=== PATIENT | female | born 1960 | race Caucasian/White ===

== ENCOUNTER → 2018-11-24 16:37 | Outpatient (CLI) | payer OTHER, SELFPAY ==
--- NOTE | 2018-11-24 17:00 | MRI_ITS ---
STUDY: MRI LUMBAR SPINE WITHOUT CONTRAST REASON FOR EXAM: Female, 58 years old. Left-sided sciatica. Low back pain. Difficulty bearing weight. TECHNIQUE: Standardized fat and water weighted pulse sequences were obtained in the sagittal and axial planes. COMPARISON: CT scan dated November 28, 2014 of the abdomen/pelvis. FINDINGS: Levoscoliosis. Lumbar straightening. Conus medullaris terminates normally at the L1-2 level. Multiple scattered hemangiomas (atypical appearance at L3). No acute fracture line. No dislocation. No cortical destruction. No spondylolisthesis. Transitional lumbosacral anatomy with rudimentary disc at S1 to (for the sake of labeling). T12-L1: Normal endplates. Normal disc height, hydration and morphology. Normal bilateral facet joints. Normal central canal and bilateral lateral recesses. Normal bilateral intervertebral neural foramina. L1-2: Normal endplates. Disc desiccation. Normal bilateral facet joints. Normal central canal and bilateral lateral recesses. Normal bilateral intervertebral neural foramina. L2-3: Mild endplate spondylosis. Disc desiccation. Normal bilateral facet joints. Normal central canal and bilateral lateral recesses. Normal bilateral intervertebral neural foramina. L3-4: Mild endplate spondylosis. Disc bulge without central canal narrowing. Normal bilateral facet joints. Normal central canal and bilateral lateral recesses. Normal bilateral intervertebral neural foramina. L4-5: Normal endplates. Disc bulge without central canal narrowing. Facet joint arthrosis. Normal central canal and bilateral lateral recesses. Normal bilateral intervertebral neural foramina. L5-S1: Minimal endplate spondylosis. Left paracentral disc protrusion measuring 9 mm x 31 mm (axial image 4 series 6). Facet joint arthrosis. Normal central canal. Left lateral recess narrowing with impingement. Left neural foraminal narrowing without impingement. Sacrum intact. Paraspinal muscle atrophy. Normal aorta. MRI/Spine Lumbar (Routine) IMPRESSION: L5-S1 left paracentral disc protrusion with impingement at the left lateral recess involving the left descending S1 nerve root L5-S1 mild left neural foraminal narrowing without impingement Additional multilevel intervertebral disc disease without central canal narrowing Mild osseous degenerative changes Lumbar straightening with mild levoscoliosis Electronically Signed: Nirmal Salinas DO at 9:23 EDT Tel , Service support ,
== END ==
DX: M51.36 Other intervertebral disc degeneration, lumbar region (principal); Q76.49 Other congenital malformations of spine, not associated with scoliosis; M54.42 Lumbago with sciatica, left side
CPT/HCPCS: 72148

== ENCOUNTER 2018-12-20 13:00 | Outpatient (RCR) | payer OTHER, SELFPAY ==
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
--- NOTE | 2019-02-22 18:29 | HP.PTDCNRP_ITS ---
HP - Discharge Summary (1) - Patient Information BRIELLE HANKINS was seen in my office for initial evaluation on 12/06/18. The following Plan of Care was established for this patient: Initial Frequency: 3x /Week Initial Duration: 4-6 Weeks - Anticipated Interventions Patient/Client Instruction: Educate patient on: Condition, Plan of Care For the Purpose of:: To increase ROM, To increase tolerance to activity/cond ition/position, To improve ability of physical actions for home/community/work/leisure, To improve gait and locomotor functions Therapeutic Exercise to Include: Strength training, Passive ROM, Active ROM, Dynamic Lumbar Stabilization, Christine Exercises For the Purpose of:: To decrease pain, To increase ROM, To improve muscle performance and motor function, To increase tolerance to activity/condition/position, To improve ability of physical actions for home/community/work/leisure Manual Therapy Techniques to Include: Mobilization, Passive ROM For the Purpose of:: To decrease pain, To increase ROM TENS: Yes Thermo therapy (hot pack): Yes For the Purpose of:: To decrease pain This patient was last seen in our office 12/20/18. Pertinent comments regarding their Physical therapy will appear below: Pt seen 5 visits of POC but neglected to schedule any further visits. At this point, it has been over two months adn I will discontinue due to nonattendance. At this point I will be discontinuing this patient from physical therapy. I would be happy to see this patient again in the future if found appropriate by the physician. Thank you! Nirmal Decker, DPT, OCS, CSCS
== END 2018-12-20 19:00 | disposition home or self-care (01) ==
LOC: PT 13:00
DX: M51.27 Other intervertebral disc displacement, lumbosacral region (principal); M54.18 Radiculopathy, sacral and sacrococcygeal region
CPT/HCPCS: 97014; 97110; 97162; G0283

== ENCOUNTER → 2019-12-13 09:47 | Outpatient (CLI) | payer OTHER, SELFPAY ==
--- NOTE | 2019-12-13 09:51 | RAD_ITS ---
STUDY: X-RAY - ABDOMEN/PELVIS REASON FOR EXAM: Female, 59 years old. Calculus of kidney -- pain TECHNIQUE: Single AP view of the abdomen / pelvis. COMPARISON: Comparison is made with prior study dated November 28, 2014. FINDINGS: Normal visualized lung bases. There is a moderate amount of colonic fecal material. The visualized liver, spleen and kidneys are grossly normal in size and morphology. Calcified fibroid uterus. Normal visualized osseous structures. RAD/Abdomen Single View IMPRESSION: Moderate amount of fecal material is seen in the colon. No abnormal calcification is seen overlying the kidneys or course of the ureters. Electronically Signed: Desmond Altamirano, at 14:44 EDT , Service support ,
== END ==
PROVIDERS: PCP Nurse Practitioner; Referring Provider Urology; Visit Provider Urology
DX: N20.0 Calculus of kidney (principal)
CPT/HCPCS: 74018; 87086; 87088

== ENCOUNTER → 2020-02-27 15:49 | Outpatient (CLI) | payer OTHER, SELFPAY ==
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
== END ==
PROVIDERS: PCP Nurse Practitioner; Referring Provider Nurse Practitioner; Visit Provider Nurse Practitioner
DX: S99.921A Unspecified injury of right foot, initial encounter (principal); M20.11 Hallux valgus (acquired), right foot
CPT/HCPCS: 73630

== ENCOUNTER 2022-10-31 05:59 | Day surgery (SDC) | payer MEDICAID, SELFPAY ==
--- NOTE | 2022-10-30 10:23 | EKG12_ITS ---
Test Reason : PRE-OP Blood Pressure : / mmHG Vent. Rate : 082 BPM Atrial Rate : 082 BPM P-R Int : 160 ms QRS Dur : 082 ms QT Int : 408 ms P-R-T Axes : 080 078 068 degrees QTc Int : 476 ms Normal sinus rhythm Nonspecific ST abnormality Abnormal ECG Confirmed by EKATERINA TAPIA, DARWIN ([id number]), metropolitan editor JONO MAHAN ([id number]) on 11/03/2022 9:27:28 AM Referred By: Miguel Munguia Confirmed By:SARAH TOBAR MD
--- NOTE | 2022-10-31 | IMM_PTH ---
PATIENT: BRIELLE HANKINS LOC: [facility] [place] U#:[id number] AGE/SX: 62/F ROOM: RE10/31/[address]: Dr. Miguel Munguia DPM : 1960 BED: DIS: 10/31/2022 SPEC #: [id number] RECD: 11/03/22 12:28 STATUS: NISHANT REQ #: [id number] MALU: 10/31/22 00:[address]: Miguel Munguia DEPT: IMMUNOHISTOCHEMISTRY RECD BY: Yolie Toro ENTERED: 11/03/22 12:30 SP TYPE: IMMUNO OTHR DR: Dr. Germania Alvarez MD Tissues: Left foot Procedures: CK5-6 (add) KI-67 (add) P53 (add) Vimentin (add) Pankeratin (initial) MELAN-A (add) P40 (add) S-100 (add) PHYSICIAN & INSTITUTION [place] [id number] SPECIMEN INFORMATION: Tissue Source: Skin lesion of left foot plantar surface Clinical Info: Left heel sore Specimen Number: [id number] #3 CPT code: 13351, 07998 x7 METHODOLOGY: Deparaffinized sections of prefer/formalin-fixed tissue or PAP/DQ stained slides are incubated with monoclonal/polyclonal antibodies/oligonucleotide probes. Localization is made via biotin free immunoperoxidase method. Appropriate controls are performed and reacted as expected. Results on target cell population are indicated in the following table: RESULTS: ANTIBODY / CLONE RESULT Block 3 AE1-3 (AE1/AE3/PCK26) negative Vimentin (V9) positive Melan A (A103) positive S-100 (4C4.9) positive CK5-6 (D5 & 1684) negative P40 (BC28) negative P53 (DO-7) positive, 50% Ki-67 (30-9) positive, 5% These tests were developed and their performance characteristics determined by [facility]. They may not have been cleared or approved by the U.S. Food and Drug Administration. The FDA has determined that such clearance or approval is not necessary. The above immunohistochemical/dualISH markers are ordered and reviewed by the Pathologist (Dr. Brunson). INTERPRETATION: Skin lesion of left foot plantar surface, excisional biopsy: Invasive malignant melanoma. AM:tashia 11/07/2022 Case has been reviewed in consultation with Dr. Rodriguez who concurs with the above diagnosis. IDC:SJ
[2022-10-31] MEDS: Lactated Ringers 1,000 ML 15 ML IV (06:15)
[2022-10-31 06:34] VITALS: BP 149/90; PULSE 93; RESP 16; TEMP 36.6; O2SAT 99; BMI 22.6
[2022-10-31] MEDS: Clindamycin 900 MG/50 ML BAG 75 MG IV (07:27)
--- NOTE | 2022-10-31 07:30 | TISS_PTH ---
PATIENT: BRIELLE HANKINS LOC: [facility] – [place] U#:[id number] AGE/SX: 62/F ROOM: RE10/31/[address]: Dr. Miguel Munguia DPM : 1960 BED: DIS: 10/31/2022 SPEC #: [id number] RECD: 10/31/22 10:56 STATUS: NISHANT USHA #: [id number] MALU: 10/31/22 07:[address]: Miguel Munguia DEPT: SURGICAL PATHOLOGY RECD BY: Kelly De Guzman ENTERED: 10/31/22 11:46 SP TYPE: Tissue Bx [facility] DR: Dr. Germania Alvarez MD Tissues: Foot, NOS Procedures: Surgery Specimen Level IV HEADER OPERATION: Excision and biopsy neoplasm on heel PRE-OP DIAGNOSIS: Left heel sore TISSUE SUBMITTED: Biopsy left foot plantar, ink salazar medial and lateral MICROSCOPIC DIAGNOSIS Skin lesion of left foot plantar surface, excisional biopsy: Invasive malignant melanoma. See synoptic report and note. SJ:rg 11/07/2022 COMMENT SYNOPTIC REPORT Histologic type: Nodular type Level of invasion: Jake level III Tumor thickness: 3.7 mm Mitotic rate: Present, more than 4/mm2 Ulceration: Present Regression: Not identified Tumor infiltrating lymphocytes: Present, non-brisk Lymphovascular invasion: Not identified Perineural invasion: Not identified Microsatellitosis: Not identified Peripheral margin: Negative Deep margin (base of specimen): Negative Primary tumor/pathologic stage: PT3B (2.01 to 4.0 mm with ulceration) Note: The lesion is polypoid. Results of immunostains including S100 and MART1 support the diagnosis. The specimen is sent to [facility] for expert opinion, reviewed by Dr. Parminder Jamison and the above diagnosis is rendered. The complete report is viewable in the patient's EMR. Immunohistochemistry ([id number]) supports the above diagnosis. Case has been reviewed in consultation with Dr. Brunson who concurs with the above diagnosis. IDC:AM MICROSCOPIC DESCRIPTION Slides are reviewed. GROSS DESCRIPTION Received in fixative is one container labeled with the patient's name and designated biopsy left foot plantar, ink salazar medial and lateral. The specimen consists of a piece of miller-white skin ellipse measuring 4.5 x 1.5 cm and up to 0.4 cm in thickness. The specimen is oriented by ink as medial and lateral. The medial tip is inked green and lateral tip is inked yellow. Presumed proximal margin towards heel is inked black and presumed distal margin towards toe is inked blue. An ulcerated lesion on the surface measuring 1.0 x 1.0 cm. The specimen is serially sectioned and submitted entirely in four cassettes. Cassette 1 contains the medial and lateral tips of skin ellipse and cassette 3 contains the lesion. / SJ:rg 10/31/2022 TC:0 CPT: 82970
[2022-10-31] MEDS: Lidocaine 1% /Epi 1:100 (20ml) 20 ML Vial (07:44)
--- NOTE | 2022-10-31 08:05 | DCINST_ITS ---
Discharge Instructions Diet Discharge Diet: No restrictions Activity Discharge Activity: Use Walker May resume sexual activity in: No Restrictions Weight Bearing Status: No weight bearing Keep extremity elevated above heart level: Operative Extremity Dressing / Incision Call your doctor if your incision/area has: Increased Pain/ Swelling Call your doctor if you observe: Fever of 101 or Higher, Coldness, Increased Pain, Calf discomfort and Uncontrolled pain Change Dressing in: do not change dressing Remove Dressing in: do not remove dressing Cleanse incision/area with: Do not get Incision Wet Follow Up Care Please Follow Up With: Miguel Munguia DPM When: see home going sheet from Dr. Munguia Test Results: Test results from this visit will be discussed in further detail at your follow- up appointment, if applicable. Discharge Plan Admission Attending Provider: Miguel Munguia Primary Care Provider: Germania Alvarez Discharge Orders/Prescriptions Prescriptions: No Action cholecalciferol (vitamin D3) 25 mcg (1,000 unit) capsule 50 mcg PO DAILY vitamin b12 500 mg 500 mcg PO DAILY cimetidine 200 mg tablet 200 mg PO DAILY uricalm cranberry 2 tab PO DAILY Rx Instructions: 2 tabs amberen 2 cap PO DAILY Rx Instructions: 2 tabs in am cephalexin 500 mg capsule 500 mg PO Q12H 10 Days Qty: 20 0RF atenolol 50 mg tablet 50 mg PO BID Referrals / Follow Up: Germania Alvarez MD [Primary Care Provider] - Disposition Disposition (needs filled in before D/C Order can be placed): Home, Self Care
--- NOTE | 2022-10-31 08:09 | PCM.OPRPT ---
Report of Operation Date of Procedure: 10/31/22 Pre-Operative Diagnosis: suspicious plantar pigmented skin lesion left heel Post-Operative Diagnosis: same Surgery/Procedure Performed:: excision/path Surgeon: Miguel Munguia Type of Anesthesia: MAC/Supplemental/Local Specimen's removed: 3.5cm long tagged/inked skin specimen Drains: none Estimated Blood Loss (mL): 5ml Description of Procedure: 3:1 elipse planned transversely across heel, foot prepped and draped in normal sterile manner. ankle tounriquet at 250mmHg. 2 semi elliptical incisions made around the lesion. The lesion was granular and bleeding in the center very much like a foreign body granuloma but had some pigmentation around the margins and a hx of growing larger over a long time. a full thickness wedge of skin to deep subQ tissue/plantar fascia was completed and the specimen was sent inked m for medial and l for lateral. the remaining tissue was normal, No pigmentation. no foreign body. no sinus tract, no drainage, no purulence. normal surrounding fat and no remaining pigmentation in the skin. the 2 edges were brought together in a simple interrupted suture of 2.0 nylon. DSD applied. tounrniquet deflated. normal perfusion with bleeding. Pt tolerated anesthesia and procedure well. Complications none Admit VTE Documentation VTE Present on Admission: Yes VTE Mechan Device Prophylaxis: SCD's VTE Pharm Prophylaxis ordered?: Yes
[2022-10-31 08:15] VITALS: BP 116/75; BP 149/90; PULSE 74; RESP 18; O2SAT 95
[2022-10-31 08:20] VITALS: BP 116/75; BP 118/77; BP 125/77; BP 149/90; PULSE 72; PULSE 75; PULSE 76; RESP 12; RESP 18; TEMP 36.3; O2SAT 100; O2SAT 98
[2022-10-31 08:31] VITALS: BP 125/77; BP 149/90; PULSE 68; RESP 18; O2SAT 100
[2022-10-31 08:32] VITALS: BP 135/79; BP 149/90; PULSE 66; RESP 18; TEMP 36.6; O2SAT 100
--- NOTE | 2022-10-31 08:50 | SUR.PHASEI ---
SOME MILD REDNESS AND ITCHING NOTED UP FROM IV SITE AFTER ZOFRAN. WILL CONTINUE TO MONITOR.
[2022-10-31 09:10] VITALS: BP 149/90
--- NOTE | 2022-10-31 09:50 | SUR.PHASEII ---
no redness noted to IV site
== END 2022-10-31 09:51 | disposition home or self-care (01) ==
LOC: SDC 06:00 → AC 06:00
PROVIDERS: PCP Internal Medicine; Referring Provider Podiatrist Foot & Ankle Surgery; Visit Provider Podiatrist Foot & Ankle Surgery
PROC: (CPT 11624; principal; 2022-10-31 07:15)
DX: C43.72 Malignant melanoma of left lower limb, including hip (principal); I34.1 Nonrheumatic mitral (valve) prolapse; I10 Essential (primary) hypertension; Z79.899 Other long term (current) drug therapy
CPT/HCPCS: 11624; 00400; 88305; 88341; 88342; 93005; J7120; J2405

== ENCOUNTER → 2022-12-01 | Outpatient (CLI) | payer MEDICAID, SELFPAY ==
--- NOTE | 2022-12-01 12:30 | MRI_ITS ---
EXAM: MR HEAD WITHOUT AND WITH INTRAVENOUS CONTRAST CLINICAL INDICATION: STAGING MELANOMA TECHNIQUE: Multiplanar and multisequence MR images of the brain were obtained without and with intravenous contrast. This report was created using ROSTR report generation technology. CONTRAST: IV 14ml Clariscan COMPARISON: None. FINDINGS: BRAIN AND EXTRA-AXIAL SPACES: Unremarkable. No intra- or extra-axial hemorrhage. No evidence of acute infarct. No intracranial mass or mass effect. There is preservation of the diallo/white matter interface. Posterior fossa structures are unremarkable. Ventricles are appropriate for age. No hydrocephalus. Basal cisterns are patent. SELLA: Unremarkable. Normal sella turcica, pituitary gland, infundibular stalk, optic chiasm and hypothalamus. AUDITORY SYSTEM: Unremarkable. The internal auditory canals are patent. BONES/JOINTS: Unremarkable. No discrete lytic or blastic abnormalities. SINUSES: Unremarkable as visualized. Clear. MASTOID AIR CELLS: Patchy opacification of the left mastoid air cells. ORBITS: Unremarkable as visualized. Both globes, extraocular muscles, optic nerves and retrobulbar fat appear unremarkable. VASCULATURE: Unremarkable as visualized. Normal flow voids in the major intracranial circulation. SOFT TISSUES: Unremarkable. No unusual enhancement. MRI/Brain W/WO Contrast IMPRESSION: No evidence of metastatic disease to the brain. Electronically Signed: Aaron Cervantes MD at 0:29 EDT ,
== END | disposition home or self-care (01) ==
LOC: MRI 12:20
PROVIDERS: PCP Internal Medicine; Referring Provider Internal Medicine Hematology & Oncology; Visit Provider Internal Medicine Hematology & Oncology
DX: C43.72 Malignant melanoma of left lower limb, including hip (principal)
CPT/HCPCS: 70553; A9575

== ENCOUNTER → 2024-01-21 | Outpatient (CLI) | payer MEDICARE, OTHER, SELFPAY ==
[2024-01-21 13:15] LABS: Absolute Neutrophil Count 2.4 X10^3/uL (2.0-7.7); Basophil# 0.02 X10^3/uL; Basophil% 0.6 % (0-1); Eosinophil# 0.03 X10^3/uL; Eosinophils% 0.9 % (0-5); Hematocrit 41.3 % (37-47); Hemoglobin 12.9 g/dL (12.0-15.0); Lymphocyte % 23.1 % (19-41); Mean Corp Hgb Conc 31.2 g/dL (32-36); Mean Corpuscular Volume 92.8 fL (81-99); Mean Platelet Vol. 10.8 fl (6.2-12.0); Monocyte# 0.18 X10^3/uL; Monocyte% 5.2 % (0-10); NRBC Flagged by Analyzer 0 % (0-5); Neutrophil # 2.42 X10^3/uL (2.7-7.7); Neutrophil % 69.9 % (47-70); Platelet Count 213 K/mm3 (150-450); RBC Distribution Width CV 12.9 % (11.6-14.6); RBC Distribution Width SD 44.2 fl (35.1-43.9); Red Blood Count 4.45 M/mm3 (4.2-5.4); White Blood Count 3.5 K/mm3 (4.4-11.0)
[2024-01-21 14:16] LABS: AST(SGOT) 18 U/L (15-37); Alanine Aminotransfer ALT/SGPT 18 U/L (13-56); Albumin, Serum 3.6 g/dL (3.2-5.0); Alkaline Phosphatase 86 U/L (45-117); Anion Gap 7 (5-15); BUN 11 mg/dL (7-18); BUN/Creat Ratio 13.8 RATIO (10-20); Calcium,Total 9.5 mg/dL (8.5-10.1); Chloride 108 mmol/L (98-107); Cholesterol 251 mg/dL (200); EST Glomerular Filtration Rate 77 mL/min (>60); Est Glom Filt Rate - Afr Amer 93 mL/min (>60); Globulin 3.7 g/dL (2.2-4.2); Glucose 106 mg/dL (74-106); High Density Lipoprotein 72 mg/dL; Potassium 3.7 mmol/L (3.5-5.1); Protein, Total 7.3 g/dL (6.4-8.2); Sodium Level 139 mmol/L (136-145); Thyroid Stim Hormone (TSH) 1.67 uIU/mL (0.358-3.74); Triglycerides 92 mg/dL; Very Low Density Lipoprotein 18 mg/dL (5-40)
== END | disposition home or self-care (01) ==
LOC: LAB 12:34
PROVIDERS: PCP Internal Medicine; Referring Provider Internal Medicine; Visit Provider Internal Medicine
DX: C43.72 Malignant melanoma of left lower limb, including hip (principal); R00.2 Palpitations; E78.5 Hyperlipidemia, unspecified; E55.9 Vitamin D deficiency, unspecified; Z13.220 Encounter for screening for lipoid disorders
CPT/HCPCS: 36415; 80053; 80061; 82306; 84443; 85025

== ENCOUNTER 2025-04-13 09:49 | Inpatient (IN) | payer MEDICARE, OTHER, SELFPAY ==
[2025-04-13] VITALS (22 sets, daily range): BP systolic 100–149; BP diastolic 71–104; PULSE 105–140; RESP 16–24; TEMP 36.5–37; O2SAT 94–100; BMI 21.0
[2025-04-13] MEDS: 0.9% Normal Saline (1000mL) 1,000 ML 1000 ML IV ×2 (10:13→11:10)
[2025-04-13 10:23] LABS: Hematocrit 38.9 % (37-47); Hemoglobin 12.7 g/dL (12.0-15.0); Immature Granulocytes Count 0.470 X10^3/uL (0.0-0.0); Mean Corp Hgb Conc 32.6 g/dL (32-36); Mean Corpuscular Volume 79.2 fL (81-99); Mean Platelet Vol. 10.2 fl (6.2-12.0); NRBC Flagged by Analyzer 0 % (0-5); POSITIVE MORPHOLOGY YES; Platelet Count 214 K/mm3 (150-450); RBC Distribution Width CV 16.2 % (11.6-14.6); RBC Distribution Width SD 45.7 fl (35.1-43.9); Red Blood Count 4.91 M/mm3 (4.2-5.4); White Blood Count 16.1 K/mm3 (4.4-11.0)
--- NOTE | 2025-04-13 10:25 | EDS_ITS ---
HPI History of Present Illness Chief Complaint: Palpitations Detail of Chief Complaint: Awoke with fast heart rate this morning and lightheadedness with standing Informant: patient, family and other (Patient's oncologist Dr. Jerald Martínez called because of heart rate of 180.) Onset/Context/Timing Onset: Today and Hours Context: Sudden Onset Timing: Continuous Quality: Rapid heart rate Location: Cardiovascular Current Severity: Moderate Maximum Severity: Severe Worsened by: Suspect patient is dehydrated. Relieved by: Nothing Associated Symptoms Associated Symptoms: Orthostatic lightheadedness Narrative Narrative: Patient is a 64-year-old woman with history of melanoma on immunotherapy. Last dose of immunotherapy was January 21. She was treated with azithromycin for upper respiratory infection. She did develop diarrhea. She has had no diarrhea since yesterday. She did have stool cultures and stool for C. difficile toxin which was negative. Patient complains of thirst, dry mouth and orthostatic lightheadedness. She states I think I need fluids. She was seen Dr. Jerald Martínez today for IV hydration. Patient denies headache, visual, ocular auditory symptoms. Patient denies fever or chills. Patient reports a 10 pound weight loss over the past 1 to 2 weeks. Patient denies chest pain, shortness of breath, difficulty breathing, wheezing or cough. She denies abdominal pain. She does report nausea poor appetite and the diarrhea that has since resolved. Patient denies any new skin lesions. She denies myalgias arthralgias. Patient's atenolol dose was recently decreased from 50 mg twice daily to 25 mg twice daily. Prior similar symptoms: Yes Recent Illness/Hospitalization: No PFSH PFSH Medical History Malignant melanoma of left heel Wears contact lenses Anxiety Arthritis Anemia Back pain Injury of head and neck History of ulceration History of IBS Gastric reflux Non-smoker Leg cramps History of edema White coat syndrome with hypertension History of echocardiogram History of stress test Cardiology follow-up encounter MVP (mitral valve prolapse) Benign tumor of lung Irritable bowel syndrome Home Medications ?Medication ?Instructions ?Recorded ?Last Taken ?Type cholecalciferol (vitamin D3) 25 50 mcg PO DAILY Unknown History mcg (1,000 unit) capsule uricalm cranberry 2 tab PO DAILY 06/11/22 Unkn own History vitamin b12 500 mcg PO DAILY 06/11/22 Un known History lactobacillus combination no.9 4 4,000 mmu cells PO DA ISAÍAS 01/21/24 Unknown History billion cell capsule (Adult 50 Plus Probiotic) atenolol 50 mg tablet 25 mg PO BID 03/23/25 Unknow n History cetirizine 10 mg tablet (Zyrtec) 10 mg PO QDAY 5 Unknown History famotidine 20 mg tablet 20 mg PO BID 03/23/25 Unknow n History potassium chloride 10 mEq 10 meq PO QDAY 03/23/25 Unkn own History tablet,extended release cyanocobalamin (vitamin B-12) 500 mcg PO DAILY 5 Unknown History 1,000 mcg capsule metoclopramide HCl 10 mg tablet 10 mg PO Q6H PRN PRN n ausea 04/13/25 Unknown History pantoprazole 40 mg tablet,delayed 40 mg PO DAILY 04/13 Unknown History release prednisone 5 mg tablet 5 mg PO DAILY 04/13/25 Unkno wn History sucralfate 1 gram tablet 1 g PO 4X/DAY 04/13/25 Unkno wn History triamcinolone acetonide 0.1 % 1 applic topical BID Unknown History topical cream Allergy/AdvReac Type Severity Reaction Status Date / Time ondansetron (From Zofran) Allergy Mild Itching Verified 04/13/25 09:53 Iodinated Contrast Media Allergy NEEDS Verified 04/13/25 09:53 FOLLOW-UP latex Allergy Unknown Verified 04/13/25 09:53 morphine Allergy NEEDS Verified 04/13/25 09:53 FOLLOW-UP oxycodone (From OxyContin) Allergy NEEDS Verified 04/13/25 09:53 FOLLOW-UP acetaminophen (From Vicodin) AdvReac FAST HR Verified 04/13/25 09:53 hydrocodone (From Vicodin) AdvReac FAST HR Verified 04/13/25 09:53 Opioids - Morphine Analogues AdvReac Other Verified 04/13/25 09:53 (narcotics) Family History Aunt Breast cancer metastasized to bone, brain Diabetes Mother , passed at age 32 Cervical cancer Ovarian cancer Uterine cancer Grandmother Cervical cancer Diabetes, Onset Age: 70 Myocardial infarction Brother Diabetes, Onset Age: 46 Myocardial infarction Hypertension High cholesterol Thyroid disorder Grandfather Testicular cancer Skin cancer unknown specifics Father Diabetes, Onset Age: 80 Myocardial infarction Hypertension High cholesterol Kidney disease Liver disease Thyroid disorder Other Cancer Heart disease Peptic ulcer disease Surgical History S/P foot surgery History of esophagogastroduodenoscopy (EGD) Hx of colonoscopy Hx of lithotripsy History of back surgery History of lung surgery Social History adopted: No household members: none housing: condominium current occupational status: retired pets and animals: No history of recent travel: No sexually active: No Smoking Status: Never smoker alcohol intake: never substance use type: does not use caffeine: No what type of physical activity do you participate in: walking frequency: daily john/confucianism: Judaism seatbelt use: always do you feel safe at home: Yes ROS ROS ED Constitutional Constitutional ED: Reports weight loss; Denies chills, fever(s), subjective or sweats Eyes Eyes: Denies blurry vision or change in vision ENT ENT ED: Reports other Details: Dry mouth, detailed HPI narrative ; Denies ear pain, rhinorrhea or sore throat Cardiovascular Cardiovascular: Reports palpitations and racing heartbeat; Denies chest pain, orthopnea or paroxysmal nocturnal dyspnea Respiratory/Chest Respiratory/Chest: Denies cough, dyspnea, dyspnea on exertion, orthopnea or paroxysmal nocturnal dyspnea Gastrointestinal Gastrointestinal: Reports abdominal pain, diarrhea and nausea; Denies constipation, melena or vomiting Genitourinary Genitourinary ED: Reports other Details: No change in the color of her urine or amount of urination. ; Denies dysuria, hematuria or urinary frequency Musculoskeletal Musculoskeletal: Denies arthralgias, back pain or myalgias Neurologic Neurologic: Reports weakness; Denies headache(s) or paresthesias Endocrine Endocrinology: Denies cold intolerance or heat intolerance EXAM Physical Exam Const Vital Signs: 04/13/25 09:50 04/13/25 10:14 04/13/25 10:49 Temperature 98.4 F Temperature Source Oral Pulse Rate 140 H 128 H Respiratory Rate 21 H 16 Respiratory Effort Normal Non-Labored Respiratory Pattern Normal Blood Pressure 116/94 H 125/97 H Blood Pressure Mean 101 106 Pulse Ox 96 96 Oxygen Delivery Method Room Air 04/13/25 11:00 04/13/25 12:00 04/13/25 13:00 Temperature Temperature Source Pulse Rate 129 H 136 H 118 H Respiratory Rate 16 18 16 Respiratory Effort Respiratory Pattern Blood Pressure 141/104 H 149/97 H 113/88 H Blood Pressure Mean 116 114 96 Pulse Ox 100 97 97 Oxygen Delivery Method Room Air Room Air Positive well nourished and well developed General Appearance ED: well developed and NAD; Negative for cyanotic, diaphoretic or pallor HEENT Reports dry mucous membranes HEENT Narrative: Patient has bilateral temporal wasting. Ears normal. Nares patent. Posterior pharynx without erythema or exudate. Uvula midline. No deviation tongue or protrusion. Mouth ED: Yes dry mucous membranes Mouth: dry mucous membranes Eyes PERRL and EOMs intact bilaterally General Eye ED: Negative for pale conjunctiva or scleral icterus Neck no lymphadenopathy, supple and no JVD Chest Wall inspection of chest normal and palpation of chest normal Resp normal respiratory effort and clear to auscultation bilaterally Cardio regular rhythm, S1 normal heart sound and S2 normal heart sound Rate: tachycardic GI normal to inspection, nondistended, normoactive bowel sounds, non-tender, non- distended and no masses; Negative for hepatosplenomegaly Back/Spine no CVA tenderness Extremity General Extremety ED: Negative for edema or tenderness General Extremity: Negative for edema Neuro oriented x3 and CN's II-XII intact bilaterally Sensorium / Orientation: alert Psych mental status grossly normal Skin no wounds and skin turgor normal General Skin Exam: Negative for jaundice or pallor MDM MDM MDM Narrative Medical decision making narrative: Clinically patient is dehydrated. Monitor reveals a narrow complex sinus tachycardia 135-140. EKG that was obtained at oncologist office revealed a narrow complex tachycardia of 180. Patient did have an EKG performed here. This reveals a sinus tachycardia rate of 144. There is nonspecific ST-T wave changes. In light of this patient was asked specifically if she has had in the last 1 to 2 weeks chest tightness, pressure, heaviness or dyspnea with exertion or activity. She denied all. In light of this EKG change troponin levels were added. 2 L of normal saline was ordered as well. With elevated troponin, EKG changes sinus tachycardia history of malignant melanoma need to evaluate for pulmonary embolus. Will obtain a CTA of the chest and a BNP was ordered as well. Lab Data Attestation: I reviewed the patient's lab results. Lab results narrative: White count is elevated 16.1 thousand with slight shift. There is no bandemia. Patient has microcytic indices with normal H&H. Basic metabolic panel is remarkable for CO2 of 20 with an anion gap of 17. BUN and creatinine are normal. Glucose is elevated 155. Troponin is elevated 102. TSH is normal at 1.39. Labs: Laboratory Results - last 24 hr 04/13/25 04/13/25 10:05 12:05 WBC 16.1 H RBC 4.91 Hgb 12.7 Hct 38.9 MCV 79.2 L MCH 25.9 L MCHC 32.6 RDW Std Deviation 45.7 H RDW Coeff of Marie 16.2 H Plt Count 214 MPV 10.2 Immature Gran % (Auto) 2.900 H Neut % (Auto) 83.2 H Lymph % (Auto) 6.0 L [place] % (Auto) 7.8 Eos % (Auto) 0.0 Baso % (Auto) 0.1 Absolute Neuts (auto) 13.4 H Absolute Lymphs (auto) 0.97 Nucleated RBC % 0 Differential Comment SCANNED PT 15.7 H INR 1.2 APTT 27.6 Sodium 129 L Potassium 3.5 Chloride 93 L Carbon Dioxide 20.1 L Anion Gap 17 H BUN 16 Creatinine 0.81 Estim Creat Clear Calc 65.68 Est GFR (MDRD) Non-Af 80 BUN/Creatinine Ratio 19.6 Glucose 155 H Calcium 9.2 Troponin T High Sens 102 H* Troponin T Hi Sens 2 Hr 106 H* NT pro BNP II 859 TSH 1.390 Radiography Diagnostic Testing: Clinical Impression(s) from Imaging Studies Chest CTA 04/13/25 10:50 IMPRESSION: Multiple large filling defects within main pulmonary trunk, right pulmonary trunk, left pulmonary trunk with extension of these filling defects in multiple lobar, segmental and subsegmental pulmonary arteries. Findings are concerning for massive pulmonary embolism. There is RV to LV ratio of 1.2 which is concerning for underlying heart strain. Red Alert: The critical information above was relayed directly by me by telephone to Albin Yousif on 04/13/2025 at 12:54 pm with readback verification. Reading Location: [id number] CTA of the chest revealed saddle pulmonary emboli. This would explain patient's EKG changes and elevated troponin. BNP is pending. Patient was anticoagulated with heparin bolus and drip. Dr. Aguilera was paged for potential thrombectomy. Hospitalist was paged as well. EKG Initial EKG: Interpretation: Sinus Tachycardia (Rate is 144. NE was 144 ms. Cures duration 84 ms. QT durations 132 ms. [place] is normal. There is ST-T wave abnormalities lateral leads suggestive of ischemia. Is also slight ST elevation in aVR.) Management Discussion w/another healthcare provider: Hospitalist (Spoke with Dr. Elkin wood. He requested I speak with Dr. Aguilera to see if she needed emergent thrombectomy. And if appropriate to keep that was to be hospital versus transfer.), Demi Chef and Other (Spoke with Dr. Jerald Martínez prior to patient's arrival. Patient states she had an echo. Will discuss case with Jerald since she was scheduled for a stress test. In light of her EKG changes elevated troponin she will need admission. Will have technical writing lead/mgr page hospitalist for admission and cardiology if) Treatment and Re-Evaluation :: Patient was she was pretreated with Benadryl and methylprednisolone prior to CTA. Spoke with Dr. Martínez. Her EKG was normal February 27. He obtained echo which revealed no abnormality with an EF of 66%. Because she was having persistent cardiovascular symptoms and concern for cardiomyopathy he ordered a stress test. The stress test has not been ordered. Spoke to the nurse for [facility] transfer line. She will call the appropriate personnel and will call back. Comments:: Spoke with Dr. Aguilera's nurse practitioner Eli. She will review images with Dr. Aguilera and let me know if this is something that we can keep here or needs transfer. Patient was excepted by Dr. Kimo Sue hand spray operator at [facility]. I was informed that she is on a wait list and they recommended we admit to our ICU until they have an opening. In light of this the hospitalist was repaged for admission to our ICU. Critical Care Time Critical Care Time: Yes Critical care time (excluding procedures): 30-74 minutes (33), Including time spent: (History, physical, documentation, review of prior records, discussion with oncologist, vascular and hospitalist), Discussing w/Patient &/or Family/Fpga Design Engineer (Patient and family. Patient was informed that Dr. Aguilera is leaving [facility] and does not believe it appropriate to do a procedure and then leave [facility]. He recommended transfer to [facility]. Patient, and family member requested [facility] Since all of her records are through ), Discussing w/Consultants and Arranging Admission or Transfer Discharge Plan Triage Chief Complaint: Palpitations ED Provider: Albin Yousif Dx/Rx/DC Orders Clinical Impression: Acute hyponatremia, Sinus tachycardia, Malignant melanoma of left heel, Acute cor pulmonale due to saddle embolus of pulmonary artery Prescriptions: No Action cholecalciferol (vitamin D3) 25 mcg (1,000 unit) capsule 50 mcg PO DAILY vitamin b12 500 mg 500 mcg PO DAILY uricalm cranberry 2 tab PO DAILY Rx Instructions: 2 tabs Adult 50 Plus Probiotic 4 billion cell capsule 4,000 mmu cells PO DAILY Rx Instructions: administer with a meal atenolol 50 mg tablet 25 mg PO BID famotidine 20 mg tablet 20 mg PO BID potassium chloride 10 mEq tablet extended release 10 meq PO QDAY cetirizine [Zyrtec] 10 mg tablet 10 mg PO QDAY sucralfate 1 gram tablet 1 g PO 4X/DAY prednisone 5 mg tablet 5 mg PO DAILY pantoprazole 40 mg tablet,delayed release (DR/EC) 40 mg PO DAILY metoclopramide HCl 10 mg tablet 10 mg PO Q6H PRN PRN (Reason: nausea) triamcinolone acetonide 0.1 % cream 1 applic topical BID cyanocobalamin (vitamin B-12) 1,000 mcg capsule 500 mcg PO DAILY Primary Care Provider: Germanai Alvarez Referrals: Germania Alvarez MD [Primary Care Provider] - Print Language: Azeri Disposition Disposition: Acute Care Hospital
[2025-04-13 10:26] LABS: Differential Indicated SCAN CRITERIA MET
[2025-04-13 10:34] LABS: Troponin T High Sensitivity 102 ng/L (<=14)
[2025-04-13 10:38] LABS: Anion Gap 17 (5-15); BUN 16 mg/dL (4-19); BUN/Creat Ratio 19.6 RATIO (10-20); Calcium,Total 9.2 mg/dL (7.6-11.0); Carbon Dioxide 20.1 mmol/L (21.0-32.0); Chloride 93 mmol/L (98-108); Estimated Creatinine Clearance 65.68 ml/min (50-250); Glucose 155 mg/dL (70-99); Potassium 3.5 mmol/L (3.3-5.1)
--- NOTE | 2025-04-13 10:50 | CT_ITS ---
PROCEDURE: CTA CHEST W/WO CONTRAST 04/13/2025 REASON FOR EXAM: TACHYCARDIA, TACHYPNEA, HISTORY OF MALIGNANT MELANOMA TECHNIQUE: CTA CHEST W/WO CONTRAST Multiplanar Sagittal and Coronal images were obtained. CONTRAST: Isovue 370 VOLUME: 99 mL One or more dose reduction techniques were used (e.g., Automated exposure control, adjustment of the mA and/or kV according to patient size, use of iterative reconstruction technique). RADIATION DOSE SUMMARY: CTDlvol: 4.9 mGy DLP: 194.9 mGycm COMPARISON: PET-CT 11/30/2022 FINDINGS: Lymph nodes: Scattered multiple mediastinal and axillary lymph node likely reactive. Heart: Moderate cardiomegaly. RV/LV Diameter Ratio: 1.2 Thoracic Aorta: Mildly ectatic ascending aorta measuring 3.1 cm. Pulmonary Vessels: Multiple large filling defects within main pulmonary trunk, right main pulmonary artery, left main pulmonary artery with extension of these filling defect within bilateral multiple lobar, segmental and subsegmental pulmonary arteries concerning for massive pulmonary embolism. Most Proximal Level of Embolus (if embolus present): Main pulmonary trunk as well as right and left pulmonary arteries. Lungs and Airways: Bibasilar atelectatic changes. More prominent within bilateral lung bases. Pleura: Bibasilar atelectasis. Upper Abdomen: Hypodense lesions within left hepatic lobe measure 2.5 x 2.8 cm likely representing cyst. Additional small hypodense lesion is also visualized within right hepatic lobe measuring 1.5 cm. Bones: Degenerative changes of the thoracic spine. CT/CTA Chest W/WO Contrast IMPRESSION: Multiple large filling defects within main pulmonary trunk, right pulmonary paola nk, left pulmonary trunk with extension of these filling defects in multiple lobar, segmental and subsegmental pulmonary arterie s. Findings are concerning for massive pulmonary embolism. There is RV to LV ratio of 1.2 which is concerning for underlying hea rt strain. Red Alert: The critical information above was relayed directly by me by telephone to Albin Yousif on 04/13/2025 at 12:54 pm with readback verification. Reading Location: [id number]
[2025-04-13 10:57] LABS: Differential Comment SCANNED
[2025-04-13] MEDS: DiphenhydrAMINE 50 MG/ML Syringe IV (11:10)
[2025-04-13 13:00] LABS: Prothrombin Time (Protime)PT. 15.7 SECONDS (11.7-14.9)
[2025-04-13 13:01] LABS: Partial Thromboplast Time 27.6 Seconds (24.1-36.2)
[2025-04-13 13:06] LABS: Pro- Brain NATRIURETIC PEPTIDE 859 pg/mL (<=900)
[2025-04-13 13:17] LABS: Troponin T High Sens 2 HR 106 ng/L (<=14)
[2025-04-13] MEDS: Heparin Injection (Vial) 5,000 UNIT/ML VIAL 4500 UNIT IV (13:25)
[2025-04-13] MEDS: HEPARIN/D5w 25,000 UNITS 25,000 UNITS/250 ML IV.SOLN. 9.1 UNITS CONT INF (13:26)
[2025-04-13 15:02] LABS: Troponin T High Sens 4 HR 105 ng/L (<=14)
--- NOTE | 2025-04-13 16:24 | HP.PCM.HOS_ITS ---
[facility] - [facility] General Date of Admission: 04/13/25 HPI Narrative BRIELLE SMITH, is a 64 F who presents to the hospital with a couple weeks of lightheadedness and dizziness. Initially they thought that this was an upper respiratory infection and she was started on prednisone and a Z-Scott as an outpatient however this did not cause any significant improvement in her situation so she presented to the hospital today. She was found to be in sinus tachycardia and there was concern by the ED physician given her history of metastatic melanoma that she could have blood clots. CT scan demonstrated a large saddle embolism with right heart strain on CT. She was started on heparin in the emergency room and with a plan to transfer to [facility] For possible thrombectomy or catheter directed thrombolytics unfortunately do not have a bed available today. She denies any significant chest pain, she is not hypoxic or short of breath however every time she sits up she does get lightheaded. She has continued to be tachycardic but is not hypotensive. [facility] Medical History Malignant melanoma of left heel Wears contact lenses Anxiety Arthritis Anemia Back pain Injury of head and neck History of ulceration History of IBS Gastric reflux Non-smoker Leg cramps History of edema White coat syndrome with hypertension History of echocardiogram History of stress test Cardiology follow-up encounter MVP (mitral valve prolapse) Benign tumor of lung Irritable bowel syndrome Home Medications ?Medication ?Instructions ?Recorded ?Last Taken ?Type cholecalciferol (vitamin D3) 25 50 mcg PO DAILY Unknown History mcg (1,000 unit) capsule uricalm cranberry 2 tab PO DAILY 06/11/22 Unkn own History vitamin b12 500 mcg PO DAILY 06/11/22 Un known History lactobacillus combination no.9 4 4,000 mmu cells PO DA ISAÍAS 01/21/24 Unknown History billion cell capsule (Adult 50 Plus Probiotic) atenolol 50 mg tablet 25 mg PO BID 03/23/25 Unknow n History cetirizine 10 mg tablet (Zyrtec) 10 mg PO QDAY 5 Unknown History famotidine 20 mg tablet 20 mg PO BID 03/23/25 Unknow n History potassium chloride 10 mEq 10 meq PO QDAY 03/23/25 Unkn own History tablet,extended release cyanocobalamin (vitamin B-12) 500 mcg PO DAILY 5 Unknown History 1,000 mcg capsule metoclopramide HCl 10 mg tablet 10 mg PO Q6H PRN PRN n ausea 04/13/25 Unknown History pantoprazole 40 mg tablet,delayed 40 mg PO DAILY 04/13 Unknown History release prednisone 5 mg tablet 5 mg PO DAILY 04/13/25 Unkno wn History sucralfate 1 gram tablet 1 g PO 4X/DAY 04/13/25 Unkno wn History triamcinolone acetonide 0.1 % 1 applic topical BID Unknown History topical cream Allergy/AdvReac Type Severity Reaction Status Date / Time ondansetron (From Zofran) Allergy Mild Itching Verified 04/13/25 09:53 Iodinated Contrast Media Allergy NEEDS Verified 04/13/25 09:53 FOLLOW-UP latex Allergy Unknown Verified 04/13/25 09:53 morphine Allergy NEEDS Verified 04/13/25 09:53 FOLLOW-UP oxycodone (From OxyContin) Allergy NEEDS Verified 04/13/25 09:53 FOLLOW-UP acetaminophen (From Vicodin) AdvReac FAST HR Verified 04/13/25 09:53 hydrocodone (From Vicodin) AdvReac FAST HR Verified 04/13/25 09:53 Opioids - Morphine Analogues AdvReac Other Verified 04/13/25 09:53 (narcotics) Family History Aunt Breast cancer metastasized to bone, brain Diabetes Mother , passed at age 32 Cervical cancer Ovarian cancer Uterine cancer Grandmother Cervical cancer Diabetes, Onset Age: 70 Myocardial infarction Brother Diabetes, Onset Age: 46 Myocardial infarction Hypertension High cholesterol Thyroid disorder Grandfather Testicular cancer Skin cancer unknown specifics Father Diabetes, Onset Age: 80 Myocardial infarction Hypertension High cholesterol Kidney disease Liver disease Thyroid disorder Other Cancer Heart disease Peptic ulcer disease Surgical History S/P foot surgery History of esophagogastroduodenoscopy (EGD) Hx of colonoscopy Hx of lithotripsy History of back surgery History of lung surgery Social History adopted: No household members: none housing: [employer] current occupational status: retired pets and animals: No history of recent travel: No sexually active: No Smoking Status: Never smoker alcohol intake: never substance use type: does not use caffeine: No what type of physical activity do you participate in: walking frequency: daily john/holiness: Gnosticism seatbelt use: always do you feel safe at home: Yes ROS Constitutional Constitutional: Denies chills, fatigue, fever(s) or malaise Eyes Eyes: Denies blurry vision ENT HEENT: Denies headache(s) or nasal discharge Cardiovascular Cardiovascular: Reports lightheadedness, palpitations and rapid heart rate; Denies chest pain, dyspnea on exertion or syncope Respiratory/Chest Respiratory/Chest: Denies cough, shortness of breath at rest or shortness of breath with exertion Gastrointestinal Gastrointestinal: Denies constipation, diarrhea, nausea or vomiting Genitourinary Genitourinary: Denies dysuria Neurologic Neurologic: Denies focal weakness, numbness or tremor(s) Psychiatric Psychiatric: Denies anxiety or depression Vital Signs Vital Signs Vital Signs: 04/13/25 09:50 04/13/25 10:14 04/13/25 10:49 Temperature 98.4 F Temperature Source Oral Pulse Rate 140 H 128 H Respiratory Rate 21 H 16 Respiratory Effort Normal Non-Labored Respiratory Pattern Normal Blood Pressure 116/94 H 125/97 H Blood Pressure Mean 101 106 Pulse Ox 96 96 Oxygen Delivery Method Room Air 04/13/25 11:00 04/13/25 12:00 04/13/25 13:00 Temperature Temperature Source Pulse Rate 129 H 136 H 118 H Respiratory Rate 16 18 16 Respiratory Effort Respiratory Pattern Blood Pressure 141/104 H 149/97 H 113/88 H Blood Pressure Mean 116 114 96 Pulse Ox 100 97 97 Oxygen Delivery Method Room Air Room Air 04/13/25 14:26 04/13/25 14:27 04/13/25 14:30 Temperature Temperature Source Pulse Rate 125 H 124 H Respiratory Rate 24 H 21 H Respiratory Effort Respiratory Pattern Blood Pressure 116/90 H 125/84 H Blood Pressure Mean 98 97 Pulse Ox Oxygen Delivery Method 04/13/25 15:00 04/13/25 15:45 04/13/25 16:00 Temperature Temperature Source Pulse Rate 119 H 120 H 117 H Respiratory Rate 19 H 18 16 Respiratory Effort Respiratory Pattern Blood Pressure 111/82 H 111/83 H 108/78 Blood Pressure Mean 92 93 88 Pulse Ox 94 95 95 Oxygen Delivery Method 04/13/25 16:15 Temperature Temperature Source Pulse Rate 115 H Respiratory Rate 18 Respiratory Effort Respiratory Pattern Blood Pressure 110/76 Blood Pressure Mean 87 Pulse Ox 94 Oxygen Delivery Method Weight Weight: 134 lb 4.184 oz Body Mass Index (BMI) 21.0 Physical Exam Narrative General: Alert, Oriented x3, Cooperative, No apparent distress HEENT: Atraumatic, PERRLA, EOMI, Normocephalic Oral: Moist Mucosa Neck: Supple, JVD Lungs: Diminished, Normal air movement, No rhonchi, No wheeze, No rales Cardiovascular: Tachycardic, Regular Rhythm, Normal S1, Normal S2, No murmurs Abdomen: Soft, Non Tender, Non-Distended, No Hepato-splenomegaly Extremities: No edema, Capillary Refill Less than 3 Seconds Skin: No rashes, No breakdown Musculoskeletal: No Tenderness to Palpation of Joints or Extremities Neurological: No focal neurological deficits, Motor Exam 5/5 strength throughout, Sensory exam intact to light touch and pain Psych/Mental Status: Normal Affect, Appropriate Results Lab / Micro Data 04/13/25 10:05 04/13/25 10:05 Labs: Laboratory Results - last 24 hr 04/13/25 10:05: WBC 16.1 H, RBC 4.91, Hgb 12.7, Hct 38.9, MCV 79.2 L, MCH 25.9 L , MCHC 32.6, RDW Std Deviation 45.7 H, RDW Coeff of Marie 16.2 H, Plt Count 214, MPV 10.2, Immature Gran % (Auto) 2.900 H, Neut % (Auto) 83.2 H, Lymph % (Auto) 6.0 L, [place] % (Auto) 7.8, Eos % (Auto) 0.0, Baso % (Auto) 0.1, Absolute Neuts (auto) 13.4 H, Absolute Lymphs (auto) 0.97, Nucleated RBC % 0, Differential Comment SCANNED, PT 15.7 H, INR 1.2, APTT 27.6, Sodium 129 L, Potassium 3.5, C hloride 93 L, Carbon Dioxide 20.1 L, Anion Gap 17 H, BUN 16, Creatinine 0.81, Estim Creat Clear Calc 65.68, Est GFR (MDRD) Non-Af 80, BUN/Creatinine Ratio 19.6, Glucose 155 H, Calcium 9.2, Troponin T High Sens 102 H*, NT pro BNP II 859, TSH 1.390 04/13/25 12:05: Troponin T Hi Sens 2 Hr 106 H* 04/13/25 14:25: Troponin T Hi Sens 4Hr 105 H* Imaging Radiology Impression Chest CTA 04/13/25 10:50 IMPRESSION: Multiple large filling defects within main pulmonary trunk, right pulmonary trunk, left pulmonary trunk with extension of these filling defects in multiple lobar, segmental and subsegmental pulmonary arteries. Findings are concerning for massive pulmonary embolism. There is RV to LV ratio of 1.2 which is concerning for underlying heart strain. Red Alert: The critical information above was relayed directly by me by telephone to Albin Yousif on 04/13/2025 at 12:54 pm with readback verification. Reading Location: [id number] Assessment & Plan Assessment/Plan (1) Acute cor pulmonale due to saddle embolus of pulmonary artery: PLAN: Plan 1. Cor pulmonale due to saddle pulmonary embolism in the setting of malignant melanoma/hyponatremia ? Her melanoma has spread to her left groin lymph node ? Follows with [facility] oncology which is what she would like to be transferred to [facility] ? Will continue with a heparin drip as she does not have a bed at [facility] ? I discussed the case with Dr. Aguilera our vascular surgeon who recommends placement in the ICU and if she were to decompensate overnight to provide her with tPA/TNK ? Plan for an echocardiogram in the morning ? Will allow for clear liquid diet ? Repeat BMP in the morning to evaluate her sodium level does not appear to be medication induced 2. Essential HTN ? Will hold her atenolol given the large clot burden to help support her blood pressure ? Will monitor and make adjustments as necessary 3. GERD ? Stable ? Continue with PPI and Carafate DVT: Heparin drip 75 minutes was spent on direct patient care, including documentation as well as chart review and collaboration with colleagues Ms. Smith was evaluated in the Emergency Department at [facility] on 04/13/2025. At the time of evaluation, transfer to a tertiary hospital was felt to be in the patient's best interest due to severity illness and services not available at this institution. Attempts were made by the Emergency Department and/or the Hospitalist team to get Ms. Smith to the appropriate level of care. Although the pt is accepted for transfer to [facility], there are no staffed beds currently available. Given the need for ongoing medical care, Ms. Smith will be admitted to [facility] on 04/13/2025, and care will be provided here until [facility] has an available staffed bed. Pt and/or family are aware of the transfer, the reasoning behind the need for transfer, and that until a staffed bed becomes available, we will provide evidence-based care to the best of our abilities, with the limitations of care here being fully addressed. Charges/Coding Visit Charges Inpatient E&M: 29160 Init Hosp L3
--- NOTE | 2025-04-13 18:21 | PCMCONS.TICU ---
HPI Consult Data Date of Consult: 04/13/25 HPI Narrative HPI Narrative: BRIELLE HANKINS, is a 64 F who presents [facility] Medical History Malignant melanoma of left heel Wears contact lenses Anxiety Arthritis Anemia Back pain Injury of head and neck History of ulceration History of IBS Gastric reflux Non-smoker Leg cramps History of edema White coat syndrome with hypertension History of echocardiogram History of stress test Cardiology follow-up encounter MVP (mitral valve prolapse) Benign tumor of lung Irritable bowel syndrome Home Medications ?Medication ?Instructions ?Recorded ?Last Taken ?Type cholecalciferol (vitamin D3) 25 50 mcg PO DAILY 06/11/22 Unknown History mcg (1,000 unit) capsule uricalm cranberry 2 tab PO DAILY 06/11/22 Unknown History vitamin b12 500 mcg PO DAILY 06/11/22 Unknown History lactobacillus combination no.9 4 4,000 mmu cells PO DAILY 01/21/24 Unknown History billion cell capsule (Adult 50 Plus Probiotic) atenolol 50 mg tablet 25 mg PO BID 03/23/25 Unknown History cetirizine 10 mg tablet (Zyrtec) 10 mg PO QDAY 03/23/25 Unknown History famotidine 20 mg tablet 20 mg PO BID 03/23/25 Unknown History potassium chloride 10 mEq 10 meq PO QDAY 03/23/25 Unknown History tablet,extended release cyanocobalamin (vitamin B-12) 500 mcg PO DAILY 04/13/25 Unknown History 1,000 mcg capsule metoclopramide HCl 10 mg tablet 10 mg PO Q6H PRN PRN nausea 04/13/25 Unknown History pantoprazole 40 mg tablet,delayed 40 mg PO DAILY 04/13/25 Unknown History release prednisone 5 mg tablet 5 mg PO DAILY 04/13/25 Unknown History sucralfate 1 gram tablet 1 g PO 4X/DAY 04/13/25 Unknown History triamcinolone acetonide 0.1 % 1 applic topical BID 04/13/25 Unknown History topical cream Allergy/AdvReac Type Severity Reaction Status Date / Time ondansetron (From Zofran) Allergy Mild Itching Verified 04/13/25 09:53 Iodinated Contrast Media Allergy NEEDS Verified 04/13/25 09:53 FOLLOW-UP latex Allergy Unknown Verified 04/13/25 09:53 morphine Allergy NEEDS Verified 04/13/25 09:53 FOLLOW-UP oxycodone (From OxyContin) Allergy NEEDS Verified 04/13/25 09:53 FOLLOW-UP acetaminophen (From Vicodin) AdvReac FAST HR Verified 04/13/25 09:53 hydrocodone (From Vicodin) AdvReac FAST HR Verified 04/13/25 09:53 Opioids - Morphine Analogues AdvReac Other Verified 04/13/25 09:53 (narcotics) Family History Aunt Breast cancer metastasized to bone, brain Diabetes Mother , passed at age 32 Cervical cancer Ovarian cancer Uterine cancer Grandmother Cervical cancer Diabetes, Onset Age: 70 Myocardial infarction Brother Diabetes, Onset Age: 46 Myocardial infarction Hypertension High cholesterol Thyroid disorder Grandfather Testicular cancer Skin cancer unknown specifics Father Diabetes, Onset Age: 80 Myocardial infarction Hypertension High cholesterol Kidney disease Liver disease Thyroid disorder Other Cancer Heart disease Peptic ulcer disease Surgical History S/P foot surgery History of esophagogastroduodenoscopy (EGD) Hx of colonoscopy Hx of lithotripsy History of back surgery History of lung surgery Social History adopted: No household members: none housing: condominium current occupational status: retired pets and animals: No history of recent travel: No sexually active: No Smoking Status: Never smoker alcohol intake: never substance use type: does not use caffeine: No what type of physical activity do you participate in: walking frequency: daily john/latter-day: Scientologist seatbelt use: always do you feel safe at home: Yes Objective Data Objective Data Vital Signs: Vital Signs Last response Temperature 36.5 C L 04/13/25 17:40 Temperature Source Temporal 04/13/25 17:40 Pulse Rate 116 H 04/13/25 17:40 Respiratory Rate 16 04/13/25 17:40 Respiratory Effort Normal, Non-Labored 04/13/25 10:14 Respiratory Pattern Normal 04/13/25 10:14 Blood Pressure 101/74 04/13/25 17:40 Blood Pressure Mean 83 04/13/25 17:40 Blood Pressure Source Monitor 04/13/25 17:40 Blood Pressure Position Semi-Fowlers 04/13/25 17:40 Blood Pressure Location Right Arm 04/13/25 17:40 Pulse Ox 94 04/13/25 17:40 Oxygen Delivery Method Room Air 04/13/25 17:40 I&O: I&O Last 24 Hours 04/12/25 04/13/25 04/13/25 23:59 11:59 23:59 Intake Total 10305.13 Balance 10305.13 I&O: Total Stay 04/13/25 09:49 thru 04/13/25 17:44 Intake Total Balance Current Meds Ordered / Administered: Current meds ordered / Administered Generic Name Dose Route Start Last Admin Trade Name Freq PRN Reason Stop Dose Admin Famotidine 20 mg 04/13/25 22:00 Famotidine 20 Mg Tablet PO BID [facility]1983 Heparin Sodium (Porcine) 0 unit 04/13/25 12:17 Heparin Nomogram Adjustment 5,000 Unit/Ml Vial IV UD PRN Dose Adjustment Protocol Heparin Sodium/Dextrose 25,000 units in 250 mls @ 9.135 mls/hr 04/13/25 12:20 04/13/25 17:44 CONT INF 15 unit/kg/hr .[id number] CARMEN 9.1 mls/hr Titration Protocol 15 UNIT/KG/HR Pantoprazole Sodium 40 mg 04/14/25 10:00 Pantoprazole Sodium 40 Mg Tablet PO DAILY CARMEN Prednisone 5 mg 04/14/25 08:00 [facility]uc[facility] 1 gm 04/13/25 22:00 Sucralfate 1 Gm Tablet PO 1HR_ACHS [facility], [facility]1983 Lab / Micro Data 04/13/25 10:05 04/13/25 10:05 Labs: Laboratory Results - last 24 hr 04/13/25 10:05: WBC 16.1 H, RBC 4.91, Hgb 12.7, Hct 38.9, MCV 79.2 L, MCH 25.9 L, MCHC 32.6, RDW Std Deviation 45.7 H, RDW Coeff of Marie 16.2 H, Plt Count 214, MPV 10.2, Immature Gran % (Auto) 2.900 H, Neut % (Auto) 83.2 H, Lymph % (Auto) 6.0 L, [place] % (Auto) 7.8, Eos % (Auto) 0.0, Baso % (Auto) 0.1, Absolute Neuts (auto) 13.4 H, Absolute Lymphs (auto) 0.97, Nucleated RBC % 0, Differential Comment SCANNED, PT 15.7 H, INR 1.2, APTT 27.6, Sodium 129 L, Potassium 3.5, Chloride 93 L, Carbon Dioxide 20.1 L, Anion Gap 17 H, BUN 16, Creatinine 0.81, Estim Creat Clear Calc 65.68, Est GFR (MDRD) Non-Af 80, BUN/Creatinine Ratio 19.6, Glucose 155 H, Calcium 9.2, Troponin T High Sens 102 H*, NT pro BNP II 859, TSH 1.390 04/13/25 12:05: Troponin T Hi Sens 2 Hr 106 H* 04/13/25 14:25: Troponin T Hi Sens 4Hr 105 H* Imaging Radiology Impression Chest CTA 04/13/25 10:50 IMPRESSION: Multiple large filling defects within main pulmonary trunk, right pulmonary trunk, left pulmonary trunk with extension of these filling defects in multiple lobar, segmental and subsegmental pulmonary arteries. Findings are concerning for massive pulmonary embolism. There is RV to LV ratio of 1.2 which is concerning for underlying heart strain. Red Alert: The critical information above was relayed directly by me by telephone to Albin Yousif on 04/13/2025 at 12:54 pm with readback verification. Reading Location: [facility] Assessment and Plan . Assessment and plan: HPI 64 yo woman w/ locally advanced/recurrent melanoma, has been receiving immunotherapy as well as prednisone for drug-related adverse effects, admitted 04/13/25 w/ light-headedness w/ activity as well as noted tachycardia. Seen in ED w/ significant tachycardia and normal BP. No significant respiratory distress - she is breathing RA comfortably. CTA chest performed in ED - she has a large amount of thrombus in the central pulmonary arteries w/ more distal thrombus as well as e/o some RV enlargement. TTE not yet performed and not available currently at this facility. BNP and troponin both modestly elevated. Vascular surgery apparently performs catheter-directed therapy and has recommended transfer to a larger facility. This has been initiated - apparently awaiting bed availability currently. IV UFH has been initiated and the patient has been admitted to ICU. She currently feels well while supine at rest. She is breathing RA. HR 120, regular. BP is WNL. EXAM GEN NAD VS as above HEENT o/p clear NECK supple COR tachy, reg CHEST CTA ABD soft EXT minimal edema SKIN w/d DAMARIS NF ASSESSMENT/PLAN 1. Extensive VTED w/ bilateral PE in central PAs. There is extensive thrombus burden, likely enlarged RV, elevated biomarkers, persistent tachycardia. Unfortunately she appears to be at fairly high risk for progression/decompensation. Would recommend TTE IRWIN to better assess RV size and function. This does not appear to be available until 04/14. Transfer to a larger facility has been initiated. If any e/o decompensation, plan for systemic thrombolytic therapy - she does not appear to be at terribly high risk for bleeding. For now, continue IV UFH per protocol. 2. Locally advanced melanoma, recent immunotherapy, also recently has been taking prednisone. Will add stress doses hydrocortisone IV for now. Critical Care Time: 60 minutes The entirety of this encounter was done via Telemedicine
[2025-04-13 21:07] LABS: Partial Thromboplast Time 47.3 Seconds (24.1-36.2)
[2025-04-13] MEDS: Heparin Nomogram Adjustment 5,000 UNIT/ML VIAL IV (21:13)
[2025-04-14] VITALS (24 sets, daily range): BP systolic 94–137; BP diastolic 64–90; PULSE 78–108; RESP 12–26; TEMP 35.9–36.8; O2SAT 92–100; BMI 21.9
--- NOTE | 2025-04-14 00:01 | ECHOD_ITS ---
Reason For Study Reason For Study: Saddle PE Procedure This was a 2D Doppler, Color Flow transthoracic echocardiogram. Exam performed portable in ICU/CCU. Left Ventricle Normal LV size. Normal left ventricular thickness. The estimated ejection fraction is 60 %. Normal diastology for age. Right Ventricle Normal right ventricle. Normal systolic function. TAPSE is 2. Atria The left and right atria are normal. Mitral Valve Borderline mild prolapse of the anterior leaflet but no significant stenosis or regurgitation. Tricuspid Valve Mild to moderate (1-2+) tricuspid valve insufficiency. Moderate pulmonary hypertension. Aortic Valve Trisinus/trileaflet aortic valve. There is no aortic stenosis. Great Vessels Normal sized aortic root. Pericardium/Pleural No pericardial effusion. MMode/2D Measurements & Calculations LVIDd: 3.2 cm IVSd: 0.72 cm Ao root diam: 2.8 cm LVIDs: 1.6 cm LVPWd: 0.90 cm RVDd: 3.5 cm FS: 50.6 % LAV(MOD-bp): 20.2 ml LVAd ap4: 16.4 cm2 LVAd ap2: 17.4 cm2 LAV(MOD-bp) Indexed: 11.9 ml/m2 LVLd ap4: 6.9 cm LVLd ap2: 7.0 cm LAV(MOD-sp2): 21.1 ml EDV(MOD-sp4): 32.9 ml EDV(MOD-sp2): 37.0 ml LAV(MOD-sp4): 17.6 ml EDV(sp4-el): 33.1 ml EDV(sp2-el): 37.1 ml LVAs ap4: 8.7 cm2 LVAs ap2: 8.7 cm2 LVLs ap4: 6.1 cm LVLs ap2: 6.0 cm ESV(MOD-sp4): 10.8 ml ESV(MOD-sp2): 11.7 ml ESV(sp4-el): 10.6 ml ESV(sp2-el): 10.6 ml EF(MOD-sp4): 67.1 % EF(MOD-sp2): 68.4 % EF(sp4-el): 68.1 % SV(MOD-sp4): 22.1 ml SV(MOD-sp2): 25.3 ml SV(sp4-el): 22.5 ml SI(MOD-sp4): 13.0 ml/m2 SI(MOD-sp2): 14.9 ml/m2 LA A4 area: 9.8 cm2 LA dimension(2D): 2.1 cm RA A4 area: 12.6 cm2 TAPSE: 2.0 cm Doppler Measurements & Calculations MV E max charlie: 63.6 cm/sec Lat Peak E' Charlie: 12.8 cm/sec Med Peak E' Charlie: 10.8 cm/sec MV A max charlie: 80.9 cm/sec E/E' lat: 5.0 E/E' med: 5.9 MV E/A: 0.79 Ao V2 max: 130.9 cm/sec LV V1 max: 103.8 cm/sec PA V2 max: 85.9 cm/sec Ao max P.9 mmHg LV V1 max P.3 mmHg Ao V2 mean: 89.0 cm/sec LV V1 mean P.4 mmHg Ao mean P.6 mmHg LV V1 mean: 71.5 cm/sec Ao V2 VTI: 24.4 cm LV V1 VTI: 20.4 cm AV (velocity ratio): 0.84 TR max charlie: 375.8 cm/sec TR max P.5 mmHg ECHO/Echo Complete Interpretation Summary Normal ventricular size and function, the estimated ejection fraction is 60 %. Normal right ventricular size and function, TAPSE is 2. moderate pulmonary hype rtension, estimated right-sided pressures 55 mmHg Normal diastology for age. Borderline mild prolapse of the anterior leaflet but no significant stenosis or regurgitation There is an echodensity noted in the proximal part of the pulmonary artery like ly related to her underlying pulmonary emboli Ordering Physician: Jose Lowry Referring Physician: Germania Alvarez Performed By: Idalia Angel RDCS
[2025-04-14 04:57] LABS: Partial Thromboplast Time > 200.0 Seconds (24.1-36.2)
[2025-04-14 05:38] LABS: Hematocrit 32.6 % (37-47); Hemoglobin 10.5 g/dL (12.0-15.0); Immature Granulocytes Count 0.330 X10^3/uL (0.0-0.0); Mean Corp Hgb Conc 32.2 g/dL (32-36); Mean Corpuscular Volume 79.7 fL (81-99); Mean Platelet Vol. 10.4 fl (6.2-12.0); NRBC Flagged by Analyzer 0 % (0-5); Platelet Count 189 K/mm3 (150-450); RBC Distribution Width CV 16.8 % (11.6-14.6); RBC Distribution Width SD 48.9 fl (35.1-43.9); Red Blood Count 4.09 M/mm3 (4.2-5.4); White Blood Count 8.7 K/mm3 (4.4-11.0)
[2025-04-14 06:10] LABS: Anion Gap 13 (5-15); BUN 10 mg/dL (4-19); BUN/Creat Ratio 18.4 RATIO (10-20); Calcium,Total 8.5 mg/dL (7.6-11.0); Carbon Dioxide 20.3 mmol/L (21.0-32.0); Chloride 102 mmol/L (98-108); Estimated Creatinine Clearance 64.76 ml/min (50-250); Glucose 147 mg/dL (70-99); Potassium 3.1 mmol/L (3.3-5.1)
--- NOTE | 2025-04-14 08:58 | CASEMGMT ---
Insurance review for hospitals In-network with [facility] insurance if transfer is recommended is as follows: [facility], [facility], [place], [facility], [facility], [facility], , [place], [facility], [facility], and [place]
--- NOTE | 2025-04-14 09:00 | PN.CC_ITS ---
Objective Data Objective Data Vital Signs: Vital Signs Last response 3 Temperature 36.5 C L 04/13/25 17:40 Temperature Source Temporal 04/13/25 17:40 Pulse Rate 104 H 04/14/25 08:00 Respiratory Rate 16 04/14/25 08:00 Respiratory Effort Normal, Non-Labored 04/14/25 04:00 Respiratory Depth Normal 04/14/25 04:00 Respiratory Pattern Normal 04/14/25 04:00 Blood Pressure 110/75 04/14/25 08:00 Blood Pressure Mean 86 04/14/25 08:00 Blood Pressure Source Monitor 04/14/25 08:00 Blood Pressure Position Supine 04/14/25 08:00 Blood Pressure Location Left Arm 04/14/25 08:00 Pulse Ox 99 04/14/25 08:00 Oxygen Delivery Method Room Air 04/14/25 08:00 I&O: I&O Last 24 Hours 3 04/13/25 04/13/25 04/14/25 11:59 23:59 11:59 Intake Total 950 / 2500.07 1550.07 / 2500.07 76.31 / 76.31 Output Total 650 / 650 Balance 950 / 2500.07 1550.07 / 2500.07 -573.69 / -573.69 I&O: Total Stay 3 04/13/25 09:49 thru 04/14/25 06:59 Intake Total 2576.38 Output Total 650 Balance 1926.38 Current Meds Ordered / Administered: Current meds ordered / Administered 3 Generic Name Dose Route Start Last Admin Trade Name Freq PRN Reason Stop Dose Admin Famotidine 20 mg 04/13/25 22:00 04/14/25 08:14 Famotidine 20 Mg Tablet PO 20 mg BID CARMEN Administration Heparin Sodium (Porcine) 0 unit 04/13/25 12:17 04/13/25 21:13 Heparin Nomogram Adjustment 5,000 Unit/Ml Vial IV 1,000 unit UD PRN Administration Dose Adjustment Protocol Hydrocortisone Sodium Succinate 100 mg 04/13/25 22:00 04/14/25 05:24 Hydrocortisone Sod Succinate 100 Mg/2 Ml Vial IV 100 mg Q8 CARMEN Administration Heparin Sodium/Dextrose 25,000 units in 250 mls @ 9.255 mls/hr 04/13/25 12:20 04/14/25 06:59 CONT INF 13 unit/kg/hr .Q27H1M CARMEN 8 mls/hr Titration Protocol 15 UNIT/KG/HR Pantoprazole Sodium 40 mg 04/14/25 10:00 04/14/25 08:14 Pantoprazole Sodium 40 Mg Tablet PO 40 mg DAILY [facility] Administration Sucralfate 1 gm 04/13/25 22:00 04/14/25 05:24 Sucralfate 1 Gm Tablet PO Not Given 1HR_ACHS [facility] Lab / Micro Data 04/14/25 05:20 04/14/25 05:20 Labs: Laboratory Results - last 24 hr 04/13/25 10:05: WBC 16.1 H, RBC 4.91, Hgb 12.7, Hct 38.9, MCV 79.2 L, MCH 25.9 L , MCHC 32.6, RDW Std Deviation 45.7 H, RDW Coeff of Marie 16.2 H, Plt Count 214, MPV 10.2, Immature Gran % (Auto) 2.900 H, Neut % (Auto) 83.2 H, Lymph % (Auto) 6.0 L, [place] % (Auto) 7.8, Eos % (Auto) 0.0, Baso % (Auto) 0.1, Absolute Neuts (auto) 13.4 H, Absolute Lymphs (auto) 0.97, Nucleated RBC % 0, Differential Comment SCANNED, PT 15.7 H, INR 1.2, APTT 27.6, Sodium 129 L, Potassium 3.5, C hloride 93 L, Carbon Dioxide 20.1 L, Anion Gap 17 H, BUN 16, Creatinine 0.81, Estim Creat Clear Calc 65.68, Est GFR (MDRD) Non-Af 80, BUN/Creatinine Ratio 19.6, Glucose 155 H, Calcium 9.2, Troponin T High Sens 102 H*, NT pro BNP II 859, TSH 1.390 04/13/25 12:05: Troponin T Hi Sens 2 Hr 106 H* 04/13/25 14:25: Troponin T Hi Sens 4Hr 105 H* 04/13/25 20:03: APTT 47.3 H 04/14/25 03:50: APTT > 200.0 H* 04/14/25 05:20: WBC 8.7, RBC 4.09 L, Hgb 10.5 L, Hct 32.6 L, MCV 79.7 L, MCH 25.7 L, MCHC 32.2, RDW Std Deviation 48.9 H, RDW Coeff of Marie 16.8 H, Plt Count 189, MPV 10.4, Immature Gran % (Auto) 3.800 H, Neut % (Auto) 81.1 H, Lymph % (Auto) 10.2 L, [place] % (Auto) 4.7, Eos % (Auto) 0.0, Baso % (Auto) 0.2, Absolute Neuts (auto) 7.1, Absolute Lymphs (auto) 0.89, Nucleated RBC % 0, Sodium 136, P otassium 3.1 L, Chloride 102, Carbon Dioxide 20.3 L, Anion Gap 13, BUN 10, C reatinine 0.56 L, Estim Creat Clear Calc 64.76, Est GFR (MDRD) Non-Af 101, BUN/Creatinine Ratio 18.4, Glucose 147 H, Calcium 8.5 Imaging Radiology Impression Chest CTA 04/13/25 10:50 IMPRESSION: Multiple large filling defects within main pulmonary trunk, right pulmonary trunk, left pulmonary trunk with extension of these filling defects in multiple lobar, segmental and subsegmental pulmonary arteries. Findings are concerning for massive pulmonary embolism. There is RV to LV ratio of 1.2 which is concerning for underlying heart strain. Red Alert: The critical information above was relayed directly by me by telephone to Albin Yousif on 04/13/2025 at 12:54 pm with readback verification. Reading Location: [facility] Assessment and Plan . Assessment and plan: Subjective: No acute events o/n. Pt feels very well this AM. Denies CP, dyspnea, dizziness. Wants to go home EXAM GEN NAD HEENT o/p clear COR tachy, reg CHEST CTA ABD soft EXT minimal edema SKIN w/d DAMARIS NF I have reviewed the pertinent vital sign, laboratory, and imaging data. ASSESSMENT/PLAN 1. Extensive VTED w/ bilateral PE in central PAs. There is extensive thrombus burden, likely enlarged RV, elevated biomarkers, persistent tachycardia. Unfortunately she appears to be at fairly high risk for progression/decompensation. Would recommend TTE IRWIN to better assess RV size and function. This does not appear to be available until 8/15. Transfer to a larger facility has been initiated, awaiting bed. If any e/o decompensation, plan for systemic thrombolytic therapy - she does not appear to be at terribly high risk for bleeding. For now, continue IV UFH per protocol. 2. Locally advanced melanoma, recent immunotherapy, also recently has been taking prednisone. Cont stress doses hydrocortisone IV for now. 3. Hypokalemia - replete K Proph DVT/GI: Heparin gtt Code status: DNR/DNI Critical Care Time: 50 mins The entirety of this encounter was done via telemedicine using both audio and video. Consent was obtained.
--- NOTE | 2025-04-14 09:47 | PN.HOSP_ITS ---
Subjective Subjective Doing well, no issues overnight. She is still tachycardic to 105, pressures are little bit lower today. Afebrile and not hypoxic Objective Data Objective Data Vital Signs: Vital Signs Temp Pulse Resp BP Pulse Ox O2 Del Method 97.9 F 105 H 16 94/67 98 Room Air 04/14/25 09:00 04/14/25 09:00 04/14/25 09:00 04/14/25 09:00 04/14/25 09:00 04/14/25 09:00 Oxygen Delivery Method Room Air Weight: 136 lb 0.403 oz Body Mass Index (BMI) 21.9 Intake & Output: Intake and Output for Last 24 Hours 04/13/25 04/14/25 04/15/25 03:59 03:59 03:59 Intake Total 2500.07 / 2500.07 76.31 / 76.31 Output Total 650 / 650 Balance 2500.07 / 2500.07 -573.69 / -573.69 Lab / Micro Data 04/14/25 05:20 04/14/25 05:20 Labs: Laboratory Results - last 24 hr 04/13/25 10:05: WBC 16.1 H, RBC 4.91, Hgb 12.7, Hct 38.9, MCV 79.2 L, MCH 25.9 L , MCHC 32.6, RDW Std Deviation 45.7 H, RDW Coeff of Marie 16.2 H, Plt Count 214, MPV 10.2, Immature Gran % (Auto) 2.900 H, Neut % (Auto) 83.2 H, Lymph % (Auto) 6.0 L, [place] % (Auto) 7.8, Eos % (Auto) 0.0, Baso % (Auto) 0.1, Absolute Neuts (auto) 13.4 H, Absolute Lymphs (auto) 0.97, Nucleated RBC % 0, Differential Comment SCANNED, PT 15.7 H, INR 1.2, APTT 27.6, Sodium 129 L, Potassium 3.5, C hloride 93 L, Carbon Dioxide 20.1 L, Anion Gap 17 H, BUN 16, Creatinine 0.81, Estim Creat Clear Calc 65.68, Est GFR (MDRD) Non-Af 80, BUN/Creatinine Ratio 19.6, Glucose 155 H, Calcium 9.2, Troponin T High Sens 102 H*, NT pro BNP II 859, TSH 1.390 04/13/25 12:05: Troponin T Hi Sens 2 Hr 106 H* 04/13/25 14:25: Troponin T Hi Sens 4Hr 105 H* 04/13/25 20:03: APTT 47.3 H 04/14/25 03:50: APTT > 200.0 H* 04/14/25 05:20: WBC 8.7, RBC 4.09 L, Hgb 10.5 L, Hct 32.6 L, MCV 79.7 L, MCH 25.7 L, MCHC 32.2, RDW Std Deviation 48.9 H, RDW Coeff of Marie 16.8 H, Plt Count 189, MPV 10.4, Immature Gran % (Auto) 3.800 H, Neut % (Auto) 81.1 H, Lymph % (Auto) 10.2 L, [place] % (Auto) 4.7, Eos % (Auto) 0.0, Baso % (Auto) 0.2, Absolute Neuts (auto) 7.1, Absolute Lymphs (auto) 0.89, Nucleated RBC % 0, Sodium 136, P otassium 3.1 L, Chloride 102, Carbon Dioxide 20.3 L, Anion Gap 13, BUN 10, C reatinine 0.56 L, Estim Creat Clear Calc 64.76, Est GFR (MDRD) Non-Af 101, BUN/Creatinine Ratio 18.4, Glucose 147 H, Calcium 8.5 Radiography Diagnostic Testing: Radiology Impression Chest CTA 04/13/25 10:50 IMPRESSION: Multiple large filling defects within main pulmonary trunk, right pulmonary trunk, left pulmonary trunk with extension of these filling defects in multiple lobar, segmental and subsegmental pulmonary arteries. Findings are concerning for massive pulmonary embolism. There is RV to LV ratio of 1.2 which is concerning for underlying heart strain. Red Alert: The critical information above was relayed directly by me by telephone to Albin Yousif on 04/13/2025 at 12:54 pm with readback verification. Reading Location: [facility] Physical Exam Narrative General: Alert, Oriented x3, Cooperative, No apparent distress HEENT: Atraumatic, PERRLA, EOMI, Normocephalic Oral: Moist Mucosa Neck: Supple, JVD Lungs: Diminished, Normal air movement, No rhonchi, No wheeze, No rales Cardiovascular: Tachycardic, Regular Rhythm, Normal S1, Normal S2, No murmurs Abdomen: Soft, Non Tender, Non-Distended, No Hepato-splenomegaly Extremities: No edema, Capillary Refill Less than 3 Seconds Skin: No rashes, No breakdown Musculoskeletal: No Tenderness to Palpation of Joints or Extremities Neurological: No focal neurological deficits, Motor Exam 5/5 strength throughout, Sensory exam intact to light touch and pain Psych/Mental Status: Normal Affect, Appropriate Assessment & Plan Assessment/Plan (1) Acute cor pulmonale due to saddle embolus of pulmonary artery: PLAN: Plan 1. Cor pulmonale due to saddle pulmonary embolism in the setting of malignant melanoma/hyponatremia/hypokalemia ? Her melanoma has spread to her left groin lymph node ? Follows with [facility] oncology which is what she would like to be transferred to [facility] ? Will continue with a heparin drip as she does not have a bed at [facility] ? I discussed the case with Dr. Aguilera our vascular surgeon who recommends placement in the ICU and if she were to decompensate overnight to provide her with tPA/TNK ? Plan for an echocardiogram in the morning ? Will allow for clear liquid diet ? Hyponatremia has resolved, she is now hypokalemic we will treat 2. Essential HTN ? Will hold her atenolol given the large clot burden to help support her blood pressure ? Will monitor and make adjustments as necessary 3. GERD ? Stable ? Continue with PPI and Carafate DVT: Heparin drip Charges/Coding Visit Charges Inpatient E&M: 88402 Subs Hosp L2
[2025-04-14] MEDS: Potassium Chloride Oral Tablet 20 MEQ 60 MEQ PO (11:27)
--- NOTE | 2025-04-14 11:51 | CHAPLAIN ---
Type of Pastoral Visit _x__ Initial Visit ___ Follow-up Visit ___ On-call Visit ___ General Patient Visit ___ Spiritual Assessment ___ Family Conference ___ Bereavement ___ Rapid Response ___ Code Blue ___ Other (describe below) Pastoral Care Referral From _x__ Patient ___ Family ___ Nurse ___ Physician ___ Steel Pickler ___ Studio Designer ___ Other (describe below) Sacrament/Intervention _x__ Active listening ___ Anointing ___ Yarsanism ___ Bereavement ___ Communion _x__ Yovana exploration ___ _x__ Life review _x__ Prayer ___ Reconciliation ___ Sacrament of Sick _x__ Supportive presence ___ Wedding ___ Other (describe below) Pastoral Comments patient is welcoming and pleasant; pt speaks of her condition and hopes to be able to stay here and not be transferred; pt has family and friends support; 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
[2025-04-14 14:12] LABS: Partial Thromboplast Time 152.9 Seconds (24.1-36.2)
[2025-04-14 23:58] LABS: Partial Thromboplast Time 70.1 Seconds (24.1-36.2)
[2025-04-15] VITALS (28 sets, daily range): BP systolic 90–133; BP diastolic 64–96; PULSE 81–128; RESP 14–152; TEMP 36.6–36.8; O2SAT 84–100; BMI 21.7
[2025-04-15] MEDS: HEPARIN/D5w 25,000 UNITS 25,000 UNITS/250 ML IV.SOLN. 6.2 UNITS CONT INF
[2025-04-15 06:36] LABS: Hematocrit 30.2 % (37-47); Hemoglobin 9.8 g/dL (12.0-15.0); Immature Granulocytes Count 0.380 X10^3/uL (0.0-0.0); Mean Corp Hgb Conc 32.5 g/dL (32-36); Mean Corpuscular Volume 80.7 fL (81-99); Mean Platelet Vol. 10.1 fl (6.2-12.0); NRBC Flagged by Analyzer 0 % (0-5); Platelet Count 196 K/mm3 (150-450); RBC Distribution Width CV 16.8 % (11.6-14.6); RBC Distribution Width SD 49.1 fl (35.1-43.9); Red Blood Count 3.74 M/mm3 (4.2-5.4); White Blood Count 9.0 K/mm3 (4.4-11.0)
[2025-04-15 07:05] LABS: Partial Thromboplast Time 48.0 Seconds (24.1-36.2)
[2025-04-15] MEDS: Heparin Nomogram Adjustment 5,000 UNIT/ML VIAL IV ×2 (07:52→14:46)
[2025-04-15 07:53] LABS: Anion Gap 10 (5-15); BUN 12 mg/dL (4-19); BUN/Creat Ratio 22.0 RATIO (10-20); Calcium,Total 8.8 mg/dL (7.6-11.0); Carbon Dioxide 21.9 mmol/L (21.0-32.0); Chloride 105 mmol/L (98-108); Estimated Creatinine Clearance 64.76 ml/min (50-250); Glucose 140 mg/dL (70-99); Potassium 3.9 mmol/L (3.3-5.1)
--- NOTE | 2025-04-15 10:20 | PN.HOSP_ITS ---
Subjective Subjective Echo is unremarkable and she is still maintaining her O2 sats on room air. Still awaiting for bed at [facility] Objective Data Objective Data Vital Signs: Vital Signs Temp Pulse Resp BP Pulse Ox O2 Del Method 98.0 F 81 15 90/69 94 Room Air 04/15/25 01:00 04/15/25 05:00 04/15/25 05:00 04/15/25 05:00 04/15/25 07:17 04/15/25 07:17 Oxygen Delivery Method Room Air Weight: 134 lb 11.239 oz Body Mass Index (BMI) 21.7 Intake & Output: Intake and Output for Last 24 Hours 04/14/25 04/15/25 04/16/25 03:59 03:59 03:59 Intake Total 2500.07 / 2500.07 299.93 / 299.93 47.53 / 47.53 Output Total 1525 / 1525 Balance 2500.07 / 2500.07 -1225.07 / -1225.07 47.53 / 47.53 Lab / Micro Data 04/15/25 06:23 04/15/25 06:23 Labs: Laboratory Results - last 24 hr 04/14/25 13:25: APTT 152.9 H* 04/14/25 23:38: APTT 70.1 H 04/15/25 06:23: WBC 9.0, RBC 3.74 L, Hgb 9.8 L, Hct 30.2 L, MCV 80.7 L, MCH 26.2 L, MCHC 32.5, RDW Std Deviation 49.1 H, RDW Coeff of Marie 16.8 H, Plt Count 196, MPV 10.1, Immature Gran % (Auto) 4.200 H, Neut % (Auto) 79.1 H, Lymph % (Auto) 11.8 L, [place] % (Auto) 4.6, Eos % (Auto) 0.0, Baso % (Auto) 0.3, Absolute Neuts (auto) 7.1, Absolute Lymphs (auto) 1.06, Nucleated RBC % 0, APTT 48.0 H, Sodium 137, Potassium 3.9, Chloride 105, Carbon Dioxide 21.9, Anion Gap 10, BUN 12, C reatinine 0.56 L, Estim Creat Clear Calc 64.76, Est GFR (MDRD) Non-Af 100, B UN/Creatinine Ratio 22.0 H, Glucose 140 H, Calcium 8.8 Physical Exam Narrative General: Alert, Oriented x3, Cooperative, No apparent distress HEENT: Atraumatic, PERRLA, EOMI, Normocephalic Oral: Moist Mucosa Neck: Supple, JVD Lungs: Diminished, Normal air movement, No rhonchi, No wheeze, No rales Cardiovascular: Tachycardic, Regular Rhythm, Normal S1, Normal S2, No murmurs Abdomen: Soft, Non Tender, Non-Distended, No Hepato-splenomegaly Extremities: No edema, Capillary Refill Less than 3 Seconds Skin: No rashes, No breakdown Musculoskeletal: No Tenderness to Palpation of Joints or Extremities Neurological: No focal neurological deficits, Motor Exam 5/5 strength throughout, Sensory exam intact to light touch and pain Psych/Mental Status: Normal Affect, Appropriate Assessment & Plan Assessment/Plan (1) Acute cor pulmonale due to saddle embolus of pulmonary artery: PLAN: Plan 1. Cor pulmonale due to saddle pulmonary embolism in the setting of malignant melanoma/hyponatremia/hypokalemia ? Her melanoma has spread to her left groin lymph node ? Follows with [facility] oncology which is what she would like to be transferred to [facility] ? Will continue with a heparin drip as she does not have a bed at [facility] ? I discussed the case with Dr. Aguilera our vascular surgeon who recommends placement in the ICU and if she were to decompensate overnight to provide her with tPA/TNK ? Echo with an EF of 60%, right ventricle appears normal with moderate pulmonary hypertension with an RVSP of 55 mmHg ? Will allow for clear liquid diet ? Hyponatremia has resolved, she is now hypokalemic we will treat 2. Essential HTN ? Will hold her atenolol given the large clot burden to help support her blood pressure ? Will monitor and make adjustments as necessary 3. GERD ? Stable ? Continue with PPI and Carafate DVT: Heparin drip Charges/Coding Visit Charges Inpatient E&M: 54835 Subs Hosp L2
[2025-04-15 14:33] LABS: Partial Thromboplast Time 47.0 Seconds (24.1-36.2)
--- NOTE | 2025-04-15 15:31 | PN.CC_ITS ---
Objective Data Objective Data Vital Signs: Vital Signs Last response 3 Temperature 36.8 C 04/15/25 12:00 Temperature Source Temporal 04/15/25 12:00 Pulse Rate 96 04/15/25 12:00 Respiratory Rate 18 04/15/25 12:00 Respiratory Effort Normal 04/15/25 12:00 Respiratory Depth Shallow 04/15/25 12:00 Respiratory Pattern Normal 04/15/25 12:00 Blood Pressure 98/67 04/15/25 12:00 Blood Pressure Mean 77 04/15/25 12:00 Blood Pressure Source Monitor 04/15/25 12:00 Blood Pressure Position Sitting 04/15/25 12:00 Blood Pressure Location Right Arm 04/15/25 12:00 Pulse Ox 99 04/15/25 12:00 Oxygen Delivery Method Room Air 04/15/25 12:00 I&O: I&O Last 24 Hours 3 04/14/25 04/15/25 04/15/25 23:59 11:59 23:59 Intake Total 223.62 / 299.93 47.53 / 98.65 51.12 / 98.65 Output Total 675 / 1525 200 / 200 Balance -451.38 / -1225.07 -152.47 / -101.35 51.12 / -101.35 I&O: Total Stay 3 04/13/25 09:49 thru 04/15/25 14:46 Intake Total 2898.65 Output Total 1525 Balance 1373.65 Current Meds Ordered / Administered: Current meds ordered / Administered 3 Generic Name Dose Route Start Last Admin Trade Name Freq PRN Reason Stop Dose Admin Famotidine 20 mg 04/13/25 22:00 04/15/25 07:56 Famotidine 20 Mg Tablet PO 20 mg BID CARMEN Administration Heparin Sodium (Porcine) 0 unit 04/13/25 12:17 04/15/25 14:46 Heparin Nomogram Adjustment 5,000 Unit/Ml Vial IV 1,000 unit UD PRN Administration Dose Adjustment Protocol Heparin Sodium/Dextrose 25,000 units in 250 mls @ 9.255 mls/hr 04/13/25 12:20 04/15/25 14:46 CONT INF 13.29 unit/kg/hr .Q27H1M CARMEN 8.2 mls/hr Titration Protocol 15 UNIT/KG/HR Pantoprazole Sodium 40 mg 04/14/25 10:00 04/15/25 07:56 Pantoprazole Sodium 40 Mg Tablet PO 40 mg DAILY CARMEN Administration Prednisone 5 mg 04/16/25 08:00 Prednisone 5 Mg Tablet PO BREAKFAST [facility] Sodium Chloride 10 - 40 ml 04/15/25 14:45 0.9% Saline Lock 10 Ml Syringe IV UD PRN SALINE FLUSH Sucralfate 1 gm 04/13/25 22:00 04/15/25 11:35 Sucralfate 1 Gm Tablet PO Not Given 1HR_ACHS [facility] Lab / Micro Data 04/15/25 06:23 04/15/25 06:23 Labs: Laboratory Results - last 24 hr 04/14/25 23:38: APTT 70.1 H 04/15/25 06:23: WBC 9.0, RBC 3.74 L, Hgb 9.8 L, Hct 30.2 L, MCV 80.7 L, MCH 26.2 L, MCHC 32.5, RDW Std Deviation 49.1 H, RDW Coeff of Marie 16.8 H, Plt Count 196, MPV 10.1, Immature Gran % (Auto) 4.200 H, Neut % (Auto) 79.1 H, Lymph % (Auto) 11.8 L, [place] % (Auto) 4.6, Eos % (Auto) 0.0, Baso % (Auto) 0.3, Absolute Neuts (auto) 7.1, Absolute Lymphs (auto) 1.06, Nucleated RBC % 0, APTT 48.0 H, Sodium 137, Potassium 3.9, Chloride 105, Carbon Dioxide 21.9, Anion Gap 10, BUN 12, C reatinine 0.56 L, Estim Creat Clear Calc 64.76, Est GFR (MDRD) Non-Af 100, B UN/Creatinine Ratio 22.0 H, Glucose 140 H, Calcium 8.8 04/15/25 14:00: APTT 47.0 H Assessment and Plan . Assessment and plan: HPI 64 yo woman w/ locally advanced/recurrent melanoma, has been receiving immunotherapy as well as prednisone for drug-related adverse effects, admitted 04/13/25 w/ light-headedness w/ activity as well as noted tachycardia. Seen in ED w/ significant tachycardia and normal BP. No significant respiratory distress - she is breathing RA comfortably. CTA chest performed in ED - she has a large amount of thrombus in the central pulmonary arteries w/ more distal thrombus as well as e/o some RV enlargement. TTE not yet performed and not available currently at this facility. BNP and troponin both modestly elevated. Vascular surgery apparently performs catheter-directed therapy and has recommended transfer to a larger facility. This has been initiated - apparently awaiting bed availability currently. IV UFH has been initiated and the patient has been admitted to ICU. She currently feels well while supine at rest. She is breathing RA. HR 120, regular. BP is WNL. 04/15/25 Chart and data reviewed. Condition d/w ICU staff. She is HD stable - tachycardia resolved Breathing RA - able to ambulate fine IV UFH infusing TTE noted - there is e/o significant PH, but RV is OK EXAM GEN NAD VS as above HEENT o/p clear NECK supple COR tachy, reg CHEST CTA ABD soft EXT minimal edema SKIN w/d DAMARIS NF ASSESSMENT/PLAN 1. Extensive VTED w/ bilateral PE in central PAs. TTE reveals e/o PH, but normal RV size and function. I would transition her to either therapeutic LMWH or oral DTI. I do not think she requires additional therapy other than therapeutic A/C unless she has any clinical changes. 2. Locally advanced melanoma, recent immunotherapy, also recently has been taking prednisone. Change hydrocortisone back to po prednisone today. The entirety of this encounter was done via Telemedicine
[2025-04-15] MEDS: 0.9% Saline Lock 10 ML Syringe IV (16:45)
[2025-04-15 21:41] LABS: Partial Thromboplast Time 74.0 Seconds (24.1-36.2)
[2025-04-16] VITALS (14 sets, daily range): BP systolic 88–121; BP diastolic 62–92; PULSE 80–154; RESP 19–36; TEMP 36.2–36.7; O2SAT 93–100; BMI 21.9
[2025-04-16 03:48] LABS: Hematocrit 31.3 % (37-47); Hemoglobin 10.2 g/dL (12.0-15.0); Immature Granulocytes Count 0.500 X10^3/uL (0.0-0.0); Mean Corp Hgb Conc 32.6 g/dL (32-36); Mean Corpuscular Volume 80.7 fL (81-99); Mean Platelet Vol. 9.6 fl (6.2-12.0); NRBC Flagged by Analyzer 0 % (0-5); Platelet Count 180 K/mm3 (150-450); RBC Distribution Width CV 16.4 % (11.6-14.6); RBC Distribution Width SD 47.9 fl (35.1-43.9); Red Blood Count 3.88 M/mm3 (4.2-5.4); White Blood Count 11.9 K/mm3 (4.4-11.0)
[2025-04-16 04:13] LABS: Anion Gap 12 (5-15); BUN 12 mg/dL (4-19); BUN/Creat Ratio 21.9 RATIO (10-20); Calcium,Total 9.3 mg/dL (7.6-11.0); Carbon Dioxide 22.6 mmol/L (21.0-32.0); Chloride 103 mmol/L (98-108); Estimated Creatinine Clearance 64.76 ml/min (50-250); Glucose 117 mg/dL (70-99); Magnesium 2.2 mg/dL (1.5-2.2); Partial Thromboplast Time 80.4 Seconds (24.1-36.2); Potassium 3.1 mmol/L (3.3-5.1)
--- NOTE | 2025-04-16 08:17 | PN.HOSP_ITS ---
Subjective Subjective She did become hypoxic yesterday with ambulation however quickly. She is also fairly weak so we will have physical therapy and occasional therapy evaluate her Objective Data Objective Data Vital Signs: Vital Signs Temp Pulse Resp BP Pulse Ox O2 Del Method O2 Flow Rate 97.8 F 95 21 H 104/69 95 Room Air 2 04/15/25 16:00 04/16/25 07:00 04/16/25 07:00 04/16/25 07:00 04/16/25 07:53 04/16/25 07:53 04/15/25 18:50 Oxygen Flow Rate (L/min) 2 Oxygen Delivery Method Room Air Weight: 136 lb 0.403 oz Body Mass Index (BMI) 21.9 Intake & Output: Intake and Output for Last 24 Hours 04/15/25 04/16/25 04/17/25 03:59 03:59 03:59 Intake Total 299.93 / 299.93 1603.86 / 1603.86 56.03 / 56.03 Output Total 1525 / 1525 360 / 360 450 / 450 Balance -1225.07 / -1225.07 1243.86 / 1243.86 -393.97 / -393.97 Lab / Micro Data 04/16/25 03:39 04/16/25 03:39 Labs: Laboratory Results - last 24 hr 04/15/25 14:00: APTT 47.0 H 04/15/25 21:24: APTT 74.0 H 04/16/25 03:39: WBC 11.9 H, RBC 3.88 L, Hgb 10.2 L, Hct 31.3 L, MCV 80.7 L, MCH 26.3 L, MCHC 32.6, RDW Std Deviation 47.9 H, RDW Coeff of Marie 16.4 H, Plt Count 180, MPV 9.6, Immature Gran % (Auto) 4.200 H, Neut % (Auto) 74.5 H, Lymph % (Auto) 15.4 L, [place] % (Auto) 5.6, Eos % (Auto) 0.0, Baso % (Auto) 0.3, Absolute Neuts (auto) 8.9 H, Absolute Lymphs (auto) 1.83, Nucleated RBC % 0, APTT 80.4 H, Sodium 137, Potassium 3.1 L, Chloride 103, Carbon Dioxide 22.6, Anion Gap 12, BUN 12, Creatinine 0.56 L, Estim Creat Clear Calc 64.76, Est GFR (MDRD) Non-Af 101, BUN/Creatinine Ratio 21.9 H, Glucose 117 H, Calcium 9.3, Phosphorus 3.1, Magnesium 2.2 Physical Exam Narrative General: Alert, Oriented x3, Cooperative, No apparent distress HEENT: Atraumatic, PERRLA, EOMI, Normocephalic Oral: Moist Mucosa Neck: Supple, JVD Lungs: Diminished, Normal air movement, No rhonchi, No wheeze, No rales Cardiovascular: Tachycardic, Regular Rhythm, Normal S1, Normal S2, No murmurs Abdomen: Soft, Non Tender, Non-Distended, No Hepato-splenomegaly Extremities: No edema, Capillary Refill Less than 3 Seconds Skin: No rashes, No breakdown Musculoskeletal: No Tenderness to Palpation of Joints or Extremities Neurological: No focal neurological deficits, Motor Exam 5/5 strength throughout, Sensory exam intact to light touch and pain Psych/Mental Status: Normal Affect, Appropriate Assessment & Plan Assessment/Plan (1) Acute cor pulmonale due to saddle embolus of pulmonary artery: PLAN: Plan 1. Cor pulmonale due to saddle pulmonary embolism in the setting of malignant melanoma/hyponatremia/hypokalemia ? Her melanoma has spread to her left groin lymph node ? Follows with [facility] oncology which is what she would like to be transferred to [facility] ?Will transition the heparin drip to therapeutic Lovenox pending disposition ? I discussed the case with Dr. Aguilera our vascular surgeon who recommends placement in the ICU and if she were to decompensate overnight to provide her with tPA/TNK ? Echo with an EF of 60%, right ventricle appears normal with moderate pulmonary hypertension with an RVSP of 55 mmHg ?Can advance to regular diet 2. Essential HTN ? Will hold her atenolol given the large clot burden to help support her blood pressure ? Will monitor and make adjustments as necessary 3. GERD ? Stable ? Continue with PPI and Carafate DVT: Therapeutic Lovenox Charges/Coding Visit Charges Inpatient E&M: 90124 Subs Hosp L2
[2025-04-16] MEDS: 0.9% Saline Lock 10 ML Syringe IV ×2 (09:29→14:04)
[2025-04-16] MEDS: Potassium Chloride Oral Tablet 20 MEQ 40 MEQ PO (09:30)
--- NOTE | 2025-04-16 13:12 | PCM.PN.TICU ---
Objective Data Objective Data Vital Signs: Vital Signs Last response Temperature 36.7 C 04/16/25 08:00 Temperature Source Temporal 04/16/25 08:00 Pulse Rate 114 H 04/16/25 08:00 Respiratory Rate 21 H 04/16/25 08:00 Respiratory Effort Normal 04/16/25 08:00 Respiratory Depth Shallow 04/16/25 08:00 Respiratory Pattern Normal 04/16/25 08:00 Blood Pressure 117/85 H 04/16/25 08:00 Blood Pressure Mean 95 04/16/25 08:00 Blood Pressure Source Monitor 04/16/25 08:00 Blood Pressure Position Semi-Fowlers 04/16/25 08:00 Blood Pressure Location Right Arm 04/16/25 08:00 Pulse Ox 99 04/16/25 08:00 Oxygen Delivery Method Room Air 04/16/25 08:00 Oxygen Flow Rate (L/min) 2 04/15/25 18:50 I&O: I&O Last 24 Hours 04/15/25 04/16/25 04/16/25 23:59 11:59 23:59 Intake Total 1556.33 / 1603.86 893.23 / 893.23 Output Total 360 / 560 650 / 650 Balance 1196.33 / 1043.86 243.23 / 243.23 I&O: Total Stay 04/13/25 09:49 thru 04/16/25 11:56 Intake Total 5297.09 Output Total 2535 Balance 2762.09 Current Meds Ordered / Administered: Current meds ordered / Administered Generic Name Dose Route Start Last Admin Trade Name Freq PRN Reason Stop Dose Admin Enoxaparin Sodium 60 mg 04/16/25 10:00 04/16/25 09:29 Enoxaparin 60 Mg/0.6 Ml Syringe SC 60 mg Q12 CARMEN Administration Famotidine 20 mg 04/13/25 22:00 04/16/25 08:07 Famotidine 20 Mg Tablet PO 20 mg BID CARMEN Administration Lorazepam 0.5 mg 04/15/25 15:32 04/15/25 21:16 Lorazepam 0.5 Mg Tablet PO 0.5 mg Q8H PRN PRN Administration ANXIETY Pantoprazole Sodium 40 mg 04/14/25 10:00 04/16/25 08:07 Pantoprazole Sodium 40 Mg Tablet PO 40 mg DAILY CARMEN Administration Prednisone 5 mg 04/16/25 08:00 04/16/25 08:06 Prednisone 5 Mg Tablet PO 5 mg BREAKFAST CARMEN Administration Sodium Chloride 10 - 40 ml 04/15/25 14:45 04/16/25 09:29 0.9% Saline Lock 10 Ml Syringe IV 10 ml UD PRN Administration SALINE FLUSH Sucralfate 1 gm 04/13/25 22:00 04/16/25 08:05 Sucralfate 1 Gm Tablet PO Not Given 1HR_ACHS [facility] Lab / Micro Data 04/16/25 03:39 04/16/25 03:39 Labs: Laboratory Results - last 24 hr 04/15/25 14:00: APTT 47.0 H 04/15/25 21:24: APTT 74.0 H 04/16/25 03:39: WBC 11.9 H, RBC 3.88 L, Hgb 10.2 L, Hct 31.3 L, MCV 80.7 L, MCH 26.3 L, MCHC 32.6, RDW Std Deviation 47.9 H, RDW Coeff of Marie 16.4 H, Plt Count 180, MPV 9.6, Immature Gran % (Auto) 4.200 H, Neut % (Auto) 74.5 H, Lymph % (Auto) 15.4 L, [place] % (Auto) 5.6, Eos % (Auto) 0.0, Baso % (Auto) 0.3, Absolute Neuts (auto) 8.9 H, Absolute Lymphs (auto) 1.83, Nucleated RBC % 0, APTT 80.4 H, Sodium 137, Potassium 3.1 L, Chloride 103, Carbon Dioxide 22.6, Anion Gap 12, BUN 12, Creatinine 0.56 L, Estim Creat Clear Calc 64.76, Est GFR (MDRD) Non-Af 101, BUN/Creatinine Ratio 21.9 H, Glucose 117 H, Calcium 9.3, Phosphorus 3.1, Magnesium 2.2 Assessment and Plan . Assessment and plan: Chart and data reviewed Appears to be overall the same No new thoughts at this time We are available as needed if she develops decompensation of any sort.
[2025-04-17 03:30] VITALS: BP 103/74; PULSE 91; RESP 22; TEMP 36.6; O2SAT 97
[2025-04-17 04:53] LABS: Hematocrit 30.6 % (37-47); Hemoglobin 9.7 g/dL (12.0-15.0); Mean Corp Hgb Conc 31.7 g/dL (32-36); Mean Corpuscular Volume 83.2 fL (81-99); Mean Platelet Vol. 9.8 fl (6.2-12.0); POSITIVE COUNT YES; POSITIVE MORPHOLOGY YES; Platelet Count 147 K/mm3 (150-450); RBC Distribution Width CV 16.7 % (11.6-14.6); RBC Distribution Width SD 50.4 fl (35.1-43.9); Red Blood Count 3.68 M/mm3 (4.2-5.4); White Blood Count 6.9 K/mm3 (4.4-11.0)
[2025-04-17 04:58] LABS: Differential Indicated MANUAL DIFF
[2025-04-17 05:13] LABS: Anion Gap 10 (5-15); BUN 11 mg/dL (4-19); BUN/Creat Ratio 18.0 RATIO (10-20); Calcium,Total 8.4 mg/dL (7.6-11.0); Carbon Dioxide 22.7 mmol/L (21.0-32.0); Chloride 105 mmol/L (98-108); Estimated Creatinine Clearance 64.76 ml/min (50-250); Glucose 112 mg/dL (70-99); Potassium 3.1 mmol/L (3.3-5.1)
[2025-04-17 05:14] VITALS: BMI 21.9
[2025-04-17 05:30] LABS: Neutrophil-Segmented 70 % (47-70); Total Cells Counted 100 (MANUAL DIFF)
[2025-04-17 05:32] LABS: Anisocytosis 1+; Polychromasia 1+
[2025-04-17 05:33] LABS: Tear Drop Cell RARE
[2025-04-17] MEDS: Potassium Chloride Oral Tablet 20 MEQ 60 MEQ PO (06:11)
[2025-04-17 07:00] VITALS: O2SAT 96
[2025-04-17 09:30] VITALS: BP 119/79; PULSE 122; RESP 16; O2SAT 96
[2025-04-17 11:03] VITALS: O2SAT 92
[2025-04-17 11:24] VITALS: O2SAT 100
--- NOTE | 2025-04-17 14:55 | PCM.PROGNOTE ---
Subjective Subjective Patient seen and examined. She has no active complains and was comfortably sitting in her chair. However, even with talking and slight exertion her heart rate went up to the 150s. She denied any lightheadedness, palpiations, nausea, vomiting or any other symptoms. Review of systems is otherwise negative. Objective Data Objective Data Vital Signs: Vital Signs Temp Pulse Resp BP Pulse Ox O2 Del Method O2 Flow Rate 98 F 122 H 16 119/79 100 Room Air 2 04/17/25 03:30 04/17/25 09:30 04/17/25 09:30 04/17/25 09:30 04/17/25 11:24 04/17/25 09:30 04/15/25 18:50 Oxygen Flow Rate (L/min) 2 Oxygen Delivery Method Room Air Weight: 135 lb 9.349 oz Body Mass Index (BMI) 21.9 Intake & Output: Intake and Output for Last 24 Hours 04/15/25 04/16/25 04/17/25 23:59 23:59 23:59 Intake Total 1603.86 / 1603.86 893.23 / 893.23 Output Total 560 / 560 650 / 650 Balance 1043.86 / 1043.86 243.23 / 243.23 Lab / Micro Data 04/17/25 04:45 04/17/25 04:45 Labs: Laboratory Results - last 24 hr 04/17/25 04:45: WBC 6.9, RBC 3.68 L, Hgb 9.7 L, Hct 30.6 L, MCV 83.2, MCH 26.4 L, MCHC 31.7 L, RDW Std Deviation 50.4 H, RDW Coeff of Marie 16.7 H, Plt Count 147 L, MPV 9.8, Neut % (Auto) Not Reportable, Absolute Neuts (auto) 4.8, Absolute Lymphs (auto) 1.59, Total Counted 100, Neutrophils % (Manual) 70, Lymphocytes % (Manual) 23, Monocytes % (Manual) 5, Metamyelocytes % 2 H, Platelet Estimate ADEQUATE, Polychromasia 1+, Anisocytosis 1+, Tear Drop Cells RARE, Ovalocytes 1+, Sodium 138, Potassium 3.1 L, Chloride 105, Carbon Dioxide 22.7, Anion Gap 10, BUN 11, Creatinine 0.62 L, Estim Creat Clear Calc 64.76, Est GFR (MDRD) Non-Af 98, BUN/Creatinine Ratio 18.0, Glucose 112 H, Calcium 8.4 Physical Exam Const alert, oriented x3, no apparent distress and well nourished HEENT normocephalic, head/scalp atraumatic, moist oral mucous membranes and oropharynx normal Eyes EOMs intact bilaterally Neck supple and no JVD Lymph Lymphatic: no lymphedema noted Resp normal respiratory effort, normal air movement and clear to auscultation bilaterally Cardio S1 normal heart sound, S2 normal heart sound and no murmurs Cardio Narrative: episodic tachycardia GI normal to inspection, nondistended, normoactive bowel sounds, soft to palpation, non-tender and non-distended Extremity normal capillary refill, no clubbing, cyanosis or edema and no calf tenderness General Extremity: no tenderness to palpation of joints or extremities Skin General Skin Exam: no breakdown Neuro CN's II-XII intact bilaterally, no focal motor deficits and no sensory deficits noted Motor Exam: general weakness Psych thought process normal, cooperative and affect normal Appearance: appropriate Assessment & Plan Assessment/Plan (1) Acute cor pulmonale due to saddle embolus of pulmonary artery: PLAN: Plan #Bilateral submassive PE in the setting of metastatic malignant melanoma 2D echo showed cor pulmonale. She had bilateral saddle PE. Melanoma has spread to her left groin Currently on therapeutic Lovenox. Patient still remains very tachycardic with a heart rate going up to the 150s with slight exertion. 2D echo showed EF of 60% with right ventricle being normal and moderate pulmonary hypertension with RVSP of 55 mmHg. accepted at [facility] pending bed availability. IF she is still here by Thursday, then she will be evaluated by vascular surgery. #History of benign essential hypertension: atenolol held given large clot burden to help support her blood pressure. However in light of her tachycardia, will resume atenolol #Hypokalemia: K is 3.1. Will replace and trend. #Sinus tachycardia: HR going up to the 150s with slight exertion. Likely due to PE. She is also on atenolol, which was held due to the PE. Will resume to see if it helps with the sinus tachycardia. #GERD: On PPI and Carafate #History of malignant melanoma with mets to the left groin lymph nodes Follow-up with oncologist with outpatient basis. DVT prophylaxis: not indicated as she is already on therapeutic lovenox for PE. Charges/Coding Visit Charges Inpatient E&M: 02252 Subs Hosp L2
[2025-04-17] MEDS: Potassium Chloride Oral Tablet 10 MEQ PO (17:55)
[2025-04-17 19:00] VITALS: BP 126/76; PULSE 109; PULSE 110; RESP 24; TEMP 36.7; O2SAT 97
[2025-04-18] VITALS (7 sets, daily range): BP systolic 96–123; BP diastolic 66–87; PULSE 85–115; RESP 16–77; TEMP 36.6–36.9; O2SAT 95–99; BMI 21.6
[2025-04-18 04:40] LABS: Hematocrit 31.0 % (37-47); Hemoglobin 9.8 g/dL (12.0-15.0); Mean Corp Hgb Conc 31.6 g/dL (32-36); Mean Corpuscular Volume 82.2 fL (81-99); Mean Platelet Vol. 9.9 fl (6.2-12.0); POSITIVE COUNT YES; POSITIVE MORPHOLOGY YES; Platelet Count 161 K/mm3 (150-450); RBC Distribution Width CV 17.0 % (11.6-14.6); RBC Distribution Width SD 50.3 fl (35.1-43.9); Red Blood Count 3.77 M/mm3 (4.2-5.4); White Blood Count 6.6 K/mm3 (4.4-11.0)
[2025-04-18 04:46] LABS: Differential Indicated MANUAL DIFF
[2025-04-18 05:00] LABS: Anion Gap 11 (5-15); BUN 9 mg/dL (4-19); BUN/Creat Ratio 16.3 RATIO (10-20); Calcium,Total 8.6 mg/dL (7.6-11.0); Carbon Dioxide 22.9 mmol/L (21.0-32.0); Chloride 105 mmol/L (98-108); Estimated Creatinine Clearance 64.76 ml/min (50-250); Glucose 99 mg/dL (70-99); Potassium 3.8 mmol/L (3.3-5.1)
[2025-04-18 06:18] LABS: Neutrophil-Segmented 67 % (47-70); Total Cells Counted 100 (MANUAL DIFF)
[2025-04-18 06:22] LABS: Red Cell Morphology NORM C+C NORMAL (NORM C&C)
[2025-04-18] MEDS: Cholecalciferol (VIT D3) 25 MCG TABLET (1,000 UNITS) 50 MCG PO (08:52)
--- NOTE | 2025-04-18 08:52 | PN_ITS ---
Subjective Subjective Patient seen and examined. She had no complaints today. She still gets tachycardic with slight exertion. Review of systems is otherwise negative. Her nurse informs me that our vascular surgeon will actually be back on April 25, not tomorrow. Objective Data Objective Data Vital Signs: Vital Signs Temp Pulse Resp BP Pulse Ox O2 Del Method O2 Flow Rate 98.3 F 115 H 77 H 123/79 H 98 Room Air 2 04/18/25 07:00 04/18/25 07:00 04/18/25 07:00 04/18/25 07:00 04/18/25 07:00 04/18/25 07:00 04/15/25 18:50 Oxygen Flow Rate (L/min) 2 Oxygen Delivery Method Room Air Weight: 134 lb 0.657 oz Body Mass Index (BMI) 21.6 Intake & Output: Intake and Output for Last 24 Hours 04/16/25 04/17/25 04/18/25 23:59 23:59 23:59 Intake Total 893.23 / 893.23 Output Total 650 / 650 200 / 200 0 / 0 Balance 243.23 / 243.23 -200 / -200 0 / 0 Lab / Micro Data 04/18/25 04:27 04/18/25 04:27 Labs: Laboratory Results - last 24 hr 04/18/25 04:27: WBC 6.6, RBC 3.77 L, Hgb 9.8 L, Hct 31.0 L, MCV 82.2, MCH 26.0 L , MCHC 31.6 L, RDW Std Deviation 50.3 H, RDW Coeff of Marie 17.0 H, Plt Count 161, MPV 9.9, Neut % (Auto) Not Reportable, Absolute Neuts (auto) 4.4, Absolute Lymphs (auto) 1.56, Total Counted 100, Neutrophils % (Manual) 67, Lymphocytes % (Manual) 24, Monocytes % (Manual) 4, Metamyelocytes % 5 H, Diff Path Review December, Platelet Estimate ADEQUATE, RBC Morphology NORM C+C, Sodium 139, Potassium 3.8, Chloride 105, Carbon Dioxide 22.9, Anion Gap 11, BUN 9, Creatinine 0.56 L, Estim Creat Clear Calc 64.76, Est GFR (MDRD) Non-Af 101, BUN/Creatinine Ratio 16.3, Glucose 99, Calcium 8.6 Physical Exam Const alert, oriented x3, no apparent distress and well nourished General Appearance: cooperative HEENT normocephalic, head/scalp atraumatic, moist oral mucous membranes and oropharynx normal Eyes EOMs intact bilaterally Neck supple and no JVD Lymph Lymphatic: no lymphedema noted Resp normal respiratory effort, normal air movement and clear to auscultation bilaterally Cardio regular rhythm, S1 normal heart sound, S2 normal heart sound and no murmurs Cardio Narrative: episodic tachycardia GI normal to inspection, nondistended, normoactive bowel sounds, soft to palpation, non-tender and non-distended Extremity normal capillary refill, no clubbing, cyanosis or edema and no calf tenderness General Extremity: no tenderness to palpation of joints or extremities Skin General Skin Exam: no breakdown Neuro CN's II-XII intact bilaterally, no focal motor deficits and no sensory deficits noted Motor Exam: general weakness Psych thought process normal, cooperative and affect normal Appearance: appropriate Assessment & Plan Assessment/Plan (1) Acute cor pulmonale due to saddle embolus of pulmonary artery: PLAN: Plan #Bilateral submassive PE in the setting of metastatic malignant melanoma * 2D echo showed cor pulmonale. She had bilateral saddle PE. Melanoma has spread to her left groin * Currently on therapeutic Lovenox. Patient still remains very tachycardic with a heart rate going up to the 150s with slight exertion. 2D echo showed EF of 60% with right ventricle being normal and moderate pulmonary hypertension with RVSP of 55 mmHg. * accepted at [facility] pending bed availability. Our vascular surgeon will be back from , so patient likely will be transferred to [place] by then. * #History of benign essential hypertension: * atenolol held given large clot burden to help support her blood pressure. However in light of her tachycardia, * atenolol resumed yesterday. #Hypokalemia: resolved. K is 3.8 today. #Sinus tachycardia: * HR going up to the 150s with slight exertion. Likely due to PE. * atenolol resumed yesterday, though she still does get tachycardic with exertion. #GERD: On PPI and Carafate #History of malignant melanoma with mets to the left groin lymph nodes * Follow-up with oncologist with outpatient basis. * DVT prophylaxis: not indicated as she is already on therapeutic lovenox for PE. Charges/Coding Visit Charges Inpatient E&M: 34141 Subs Hosp L2
[2025-04-18] MEDS: Potassium Chloride Oral Tablet 10 MEQ PO (08:53)
[2025-04-18] MEDS: Lactobacillis Acidophilus 1 CAP PO (08:53)
--- NOTE | 2025-04-18 20:57 | NURSING ---
2049- [facility] transfer line contacted by this RN for update on wait for bed for patient. Was informed by transfer line staff that there were 5 ICU patients pending in ER, boarded ICU patients in PACU and multiple transfers pending, no eta on bed able to be provided
[2025-04-19] VITALS (9 sets, daily range): BP systolic 96–122; BP diastolic 73–84; PULSE 80–103; RESP 14–17; TEMP 36.2–36.8; O2SAT 95–100; BMI 21.7
[2025-04-19 05:03] LABS: Hematocrit 32.5 % (37-47); Hemoglobin 10.3 g/dL (12.0-15.0); Mean Corp Hgb Conc 31.7 g/dL (32-36); Mean Corpuscular Volume 82.5 fL (81-99); Mean Platelet Vol. 10.1 fl (6.2-12.0); POSITIVE COUNT YES; POSITIVE MORPHOLOGY YES; Platelet Count 186 K/mm3 (150-450); RBC Distribution Width CV 17.1 % (11.6-14.6); RBC Distribution Width SD 51.0 fl (35.1-43.9); Red Blood Count 3.94 M/mm3 (4.2-5.4); White Blood Count 7.2 K/mm3 (4.4-11.0)
[2025-04-19 05:22] LABS: Differential Indicated MANUAL DIFF
[2025-04-19 05:32] LABS: Anion Gap 11 (5-15); BUN 9 mg/dL (4-19); BUN/Creat Ratio 18.7 RATIO (10-20); Calcium,Total 8.8 mg/dL (7.6-11.0); Carbon Dioxide 24.3 mmol/L (21.0-32.0); Chloride 102 mmol/L (98-108); Estimated Creatinine Clearance 64.76 ml/min (50-250); Glucose 103 mg/dL (70-99); Potassium 3.5 mmol/L (3.3-5.1)
[2025-04-19 07:21] LABS: Neutrophil-Band 1 % (0-5); Neutrophil-Segmented 61 % (47-70); Total Cells Counted 100 (MANUAL DIFF)
[2025-04-19] MEDS: Cholecalciferol (VIT D3) 25 MCG TABLET (1,000 UNITS) 50 MCG PO (08:28)
[2025-04-19] MEDS: Potassium Chloride Oral Tablet 10 MEQ PO (08:29)
[2025-04-19] MEDS: Lactobacillis Acidophilus 1 CAP PO (08:29)
--- NOTE | 2025-04-19 10:01 | CASEMGMT ---
During ICU rounds, nursing reports that [facility] has been contacted again, and there is no estimate on when a bed may become available. This RN CM inquired with the patient if she would be willing to transfer to a different facility to potentially help expedite the transfer. The patient states, It has to be a [facility] facility. Pt states that she would prefer [facility]. Pt is aware of the transportation stipulations per [employer], as there are closer facilities able to meet her medical needs. Pt states that she is willing to look into [facility]'s availability and willingness to accept. Dr Lima notified.
--- NOTE | 2025-04-19 11:16 | PN_ITS ---
Subjective Subjective Patient seen and examined. She had no active complaints. Her tachycardia has improved markedly. Review of systems is otherwise negative. She has remained hemodynamically stable. Objective Data Objective Data Vital Signs: Vital Signs Temp Pulse Resp BP Pulse Ox O2 Del Method O2 Flow Rate 98.0 F 103 H 14 122/84 H 100 Room Air 2 04/19/25 09:00 04/19/25 09:00 04/19/25 09:00 04/19/25 09:00 04/19/25 09:00 04/19/25 09:00 04/15/25 18:50 Oxygen Flow Rate (L/min) 2 Oxygen Delivery Method Room Air Weight: 134 lb 11.239 oz Body Mass Index (BMI) 21.7 Intake & Output: Intake and Output for Last 24 Hours 04/17/25 04/18/25 04/19/25 23:59 23:59 23:59 Output Total 200 / 200 0 / 0 800 / 800 Balance -200 / -200 0 / 0 -800 / -800 Lab / Micro Data 04/19/25 04:47 04/19/25 04:47 Labs: Laboratory Results - last 24 hr 04/19/25 04:47: WBC 7.2, RBC 3.94 L, Hgb 10.3 L, Hct 32.5 L, MCV 82.5, MCH 26.1 L, MCHC 31.7 L, RDW Std Deviation 51.0 H, RDW Coeff of Marie 17.1 H, Plt Count 186, MPV 10.1, Neut % (Auto) Not Reportable, Absolute Neuts (auto) 4.5, Absolute Lymphs (auto) 2.16, Total Counted 100, Neutrophils % (Manual) 61, Band Neutrophils % 1, Lymphocytes % (Manual) 30, Monocytes % (Manual) 4, M etamyelocytes % 4 H, Platelet Estimate ADEQUATE, Sodium 137, Potassium 3.5, Chloride 102, Carbon Dioxide 24.3, Anion Gap 11, BUN 9, Creatinine 0.48 L, Estim Creat Clear Calc 64.76, Est GFR (MDRD) Non-Af 104, BUN/Creatinine Ratio 18.7, G lucose 103 H, Calcium 8.8 Physical Exam Const alert, oriented x3, no apparent distress and well nourished General Appearance: cooperative HEENT normocephalic, head/scalp atraumatic, moist oral mucous membranes and oropharynx normal Eyes EOMs intact bilaterally Neck supple and no JVD Lymph Lymphatic: no lymphedema noted Resp normal respiratory effort, normal air movement and clear to auscultation bilaterally Cardio regular rhythm, S1 normal heart sound, S2 normal heart sound and no murmurs Cardio Narrative: episodic tachycardia which has improved. GI normal to inspection, nondistended, normoactive bowel sounds, soft to palpation, non-tender and non-distended Extremity normal capillary refill, no clubbing, cyanosis or edema and no calf tenderness General Extremity: no tenderness to palpation of joints or extremities Skin General Skin Exam: no breakdown Neuro CN's II-XII intact bilaterally, no focal motor deficits and no sensory deficits noted Motor Exam: general weakness Psych thought process normal, cooperative and affect normal Appearance: appropriate Assessment & Plan Assessment/Plan (1) Acute cor pulmonale due to saddle embolus of pulmonary artery: PLAN: Plan #Bilateral submassive PE in the setting of metastatic malignant melanoma * 2D echo showed cor pulmonale. She had bilateral saddle PE. Melanoma has spread to her left groin * Currently on therapeutic Lovenox. Patient still remains very tachycardic with a heart rate going up to the 150s with slight exertion. 2D echo showed EF of 60% with right ventricle being normal and moderate pulmonary hypertension with RVSP of 55 mmHg. * accepted at [facility] pending bed availability. Our vascular surgeon will be back from , so patient likely will be transferred to [place] by then. * her tachycardia has improved markedly since her atenolol was resumed * I spoke to Dr Aguilera on phone today. Per discussion, thrombectomy should usually be done in within the first 48 hours. After 48 hours, per Dr Aguilera, the clot is more rigidly stuck and so there is an increased risk of tearing the pulmonary arteries, so it is nto recommended to do the thrombectomy then. Therefore, recommendation is to switch to oral anticoagulation today and if patient remains stable, to ks home. * will therefore switch to PO eliquis treatment dose today. * #History of benign essential hypertension: * atenolol held given large clot burden to help support her blood pressure. However in light of her tachycardia, * atenolol resumed #Hypokalemia: resolved. K is 3.8 today. #Sinus tachycardia: * Has improved markedly since the atenolol was resumed. * Likely due to PE. * will monitor closely. * * #GERD: On PPI and Carafate #History of malignant melanoma with mets to the left groin lymph nodes * Follow-up with oncologist with outpatient basis. * DVT prophylaxis: not indicated as she is already on therapeutic lovenox for PE. Being switched to PO eliquis. Charges/Coding Visit Charges Inpatient E&M: 58147 Subs Hosp L2
--- NOTE | 2025-04-19 14:13 | CHAPLAIN ---
Type of Pastoral Visit ___ Initial Visit _x__ Follow-up Visit ___ On-call Visit ___ General Patient Visit ___ Spiritual Assessment ___ Family Conference ___ Bereavement ___ Rapid Response ___ Code Blue ___ Other (describe below) Pastoral Care Referral From _x__ Patient _x__ Family ___ Nurse ___ Physician ___ Outside Food Server ___ Order Control Clerk Blood Bank ___ Other (describe below) Sacrament/Intervention _x__ Active listening ___ Anointing ___ Cheondoism ___ Bereavement ___ Communion _x__ Yovana exploration ___ ___ Life review _x__ Prayer ___ Reconciliation ___ Sacrament of Sick _x__ Supportive presence ___ Wedding ___ Other (describe below) Pastoral Comments patient is still waiting for a procedure or a transfer out of the hospital for that procedure; pt wants to be close to home which is the case at this hospital but admits to some weariness in waiting; pt has a father that is not doing very well physically and she is worried about him and 'what if he passes and I am here'; much talk about yovana and God's provision during the tough times, along with how 'much can we handle'; pt requests prayer for father and for self; also gave devotional reading to pt as she expressed missing that in her daily routine;
[2025-04-19] MEDS: APIXABAN 5 MG TABLET 10 MG PO (22:14)
[2025-04-20 00:38] VITALS: BP 101/71; PULSE 83; RESP 16; TEMP 36.5; O2SAT 97
[2025-04-20 02:59] VITALS: PULSE 82
[2025-04-20 04:46] VITALS: BP 93/56; PULSE 92; RESP 16; TEMP 36.7; O2SAT 97
[2025-04-20 05:46] LABS: Hematocrit 33.1 % (37-47); Hemoglobin 10.5 g/dL (12.0-15.0); Immature Granulocytes Count 0.250 X10^3/uL (0.0-0.0); Mean Corp Hgb Conc 31.7 g/dL (32-36); Mean Corpuscular Volume 83.2 fL (81-99); Mean Platelet Vol. 9.9 fl (6.2-12.0); NRBC Flagged by Analyzer 0 % (0-5); Platelet Count 187 K/mm3 (150-450); RBC Distribution Width CV 17.0 % (11.6-14.6); RBC Distribution Width SD 51.5 fl (35.1-43.9); Red Blood Count 3.98 M/mm3 (4.2-5.4); White Blood Count 6.1 K/mm3 (4.4-11.0)
[2025-04-20 06:00] VITALS: BMI 21.5
[2025-04-20 06:15] LABS: Anion Gap 10 (5-15); BUN 8 mg/dL (4-19); BUN/Creat Ratio 12.8 RATIO (10-20); Calcium,Total 8.6 mg/dL (7.6-11.0); Carbon Dioxide 26.1 mmol/L (21.0-32.0); Chloride 102 mmol/L (98-108); Estimated Creatinine Clearance 64.76 ml/min (50-250); Glucose 91 mg/dL (70-99); Potassium 3.9 mmol/L (3.3-5.1)
[2025-04-20 07:00] VITALS: PULSE 83
[2025-04-20 09:42] VITALS: BP 104/86; PULSE 96; RESP 14; TEMP 36.6; O2SAT 98
[2025-04-20] MEDS: Lactobacillis Acidophilus 1 CAP PO (09:44)
[2025-04-20] MEDS: Potassium Chloride Oral Tablet 10 MEQ PO (09:45)
[2025-04-20] MEDS: APIXABAN 5 MG TABLET 10 MG PO (09:45)
[2025-04-20] MEDS: Cholecalciferol (VIT D3) 25 MCG TABLET (1,000 UNITS) 50 MCG PO (09:46)
--- NOTE | 2025-04-20 10:00 | CASEMGMT ---
RN CM Face to Face with patient for initial transition planning/care coordination assessment. RN CM introduced self and role at [facility]. Patient sitting in chair, alert and oriented. Patient willing to participate in assessment and is able to answer all questions appropriately. Care providers, pharmacy, and demographics verified. Strata: 3 PCP: Antonio Specialists: Mauricio, oncologist; Preferred Pharmacy: [facility] [place] Insurance: [employer], [employer] Prescription Benefit: yes Living Will/HPOA: none LNOK: brother, sister in law Living Arrangements: Patient lives alone in a single story condo with 2 steps and grab bar to enter the home. Patient states she was independent at home. Transportation: self, friend DME/HHC: Patient states she has cane, raised toilet, grab bars at home. Patient would like walker at discharge, prefers [facility]. No previous HHC or SNF Patient wishes to discharge home, denies need for home health at this time. Patient states she has no further needs or concerns at this time. CM to follow for discharge planning needs that may arise. Disposition Plan: Patient to discharge home with family support and follow-up plans in place. CM to assist with walker at discharge. Radha MIRANDA, RN, CM
[2025-04-20 11:52] VITALS: BP 104/73; PULSE 96; RESP 16; TEMP 36.5; O2SAT 98
--- NOTE | 2025-04-20 12:01 | DCINST_ITS ---
Discharge Instructions DC O2, CPAP, BIPAP needs Home O2 Discharge instructions: No Dressing / Incision Discharge Activity: Return to Normal Activity Weight Bearing Status: Weight bearing as tolerated Dressing / Incision Call your doctor if you observe: Fever of 101 or Higher, Shortness of breath, Dizziness, Swelling in the ankles, Chest pain, Increased palpitations (irregular heartbeat) and Calf discomfort Follow Up Care Test Results: Test results from this visit will be discussed in further detail at your follow- up appointment, if applicable. Discharge Plan Admission Admit Date/Time: 04/13/25 14:50 Primary Reason for Your Visit: saddle PE Attending Provider: Kady Lima Primary Care Provider: Germania Alvarez Consulting Providers: Jose Lowry Instructions Patient Instructions: DVT/PE Discharge instruction sheet Discharge Orders/Prescriptions Prescriptions: New atenolol 25 mg Tablet 25 mg PO BID Qty: 60 2RF Eliquis DVT-PE Treat 30D Start 5 mg (74 tabs) tablets,dose pack 5 mg PO BID Qty: 74 0RF Rx Instructions: take 2 tabs (10mg) twice daily for the first 7 days, then continue with one tablet (5mg) twice daily Continued cholecalciferol (vitamin D3) 25 mcg (1,000 unit) capsule 50 mcg PO DAILY vitamin b12 500 mg 500 mcg PO DAILY uricalm cranberry 2 tab PO DAILY Rx Instructions: 2 tabs Adult 50 Plus Probiotic 4 billion cell capsule 4,000 mmu cells PO DAILY Rx Instructions: administer with a meal famotidine 20 mg tablet 20 mg PO BID potassium chloride 10 mEq tablet extended release 10 meq PO QDAY cetirizine [Zyrtec] 10 mg tablet 10 mg PO QDAY prednisone 5 mg tablet 5 mg PO DAILY pantoprazole 40 mg tablet,delayed release (DR/EC) 40 mg PO DAILY metoclopramide HCl 10 mg tablet 10 mg PO Q6H PRN PRN (Reason: nausea) triamcinolone acetonide 0.1 % cream 1 applic topical BID cyanocobalamin (vitamin B-12) 1,000 mcg capsule 500 mcg PO DAILY Discontinued atenolol 50 mg tablet 25 mg PO BID Referrals / Follow Up: Boo Zamora DO [Med Staff - Active Staff] - Within 2 Weeks Nirmal Aguilera MD [Med Staff - Active Staff] - Within 2 Weeks Germania Alvarez MD [Primary Care Provider] - Within 1 Week Disposition Disposition (needs filled in before D/C Order can be placed): Home, Self Care
--- NOTE | 2025-04-20 12:04 | PCM.DC.SUM ---
Providers Date of Admission: 04/13/25 Date of Discharge: 04/20/25 Primary Care Physician: Dr. Germania Alvarez MD Consultations 04/13/25 17:14 Consult: Backup Administrative Coordinator / Pulmonary Medicine Routine Consulting Provider: Intensivists/Pulmonary Med Reason for Consult: Saddle PE EMERGENT Consult: No MD Notified: Yes Date Notified: 04/13/25 Time Notified: 17:48 Method of Notification: Answering Service Reason For Visit: ACUTE COR PUMONALE DUE TO SADDLE PUMONARY EMBOLUS Diagnosis Discharge Diagnosis (1) Acute cor pulmonale due to saddle embolus of pulmonary artery: Status: Acute Code(s): I26.02 - Saddle embolus of pulmonary artery with acute cor pulmonale Plan #Bilateral submassive PE in the setting of metastatic malignant melanoma 2D echo showed cor pulmonale. She had bilateral saddle PE. Melanoma has spread to her left groin Currently on therapeutic Lovenox. Patient still remains very tachycardic with a heart rate going up to the 150s with slight exertion. 2D echo showed EF of 60% with right ventricle being normal and moderate pulmonary hypertension with RVSP of 55 mmHg. accepted at [facility] pending bed availability. Our vascular surgeon will be back from , so patient likely will be transferred to [place] by then. her tachycardia has improved markedly since her atenolol was resumed I spoke to Dr Aguilera on phone today. Per discussion, thrombectomy should usually be done in within the first 48 hours. After 48 hours, per Dr Aguilera, the clot is more rigidly stuck and so there is an increased risk of tearing the pulmonary arteries, so it is nto recommended to do the thrombectomy then. Therefore, recommendation is to switch to oral anticoagulation today and if patient remains stable, to dc home. will therefore switch to PO eliquis treatment dose today. #History of benign essential hypertension: atenolol held given large clot burden to help support her blood pressure. However in light of her tachycardia, atenolol resumed #Hypokalemia: resolved. K is 3.8 today. #Sinus tachycardia: Has improved markedly since the atenolol was resumed. Likely due to PE. will monitor closely. #GERD: On PPI and Carafate #History of malignant melanoma with mets to the left groin lymph nodes Follow-up with oncologist with outpatient basis. DVT prophylaxis: not indicated as she is already on therapeutic lovenox for PE. Being switched to PO eliquis. Medications at Discharge Home Medications cholecalciferol (vitamin D3) 25 mcg (1,000 unit) capsule 50 mcg PO DAILY 06/11/22 uricalm cranberry 2 tab PO DAILY 06/11/22 vitamin b12 500 mcg PO DAILY 06/11/22 lactobacillus combination no.9 4 billion cell capsule (Adult 50 Plus Probiotic) 4,000 mmu cells PO DAILY 01/21/24 cetirizine 10 mg tablet (Zyrtec) 10 mg PO QDAY 03/23/25 famotidine 20 mg tablet 20 mg PO BID 03/23/25 potassium chloride 10 mEq tablet,extended release 10 meq PO QDAY 03/23/25 cyanocobalamin (vitamin B-12) 1,000 mcg capsule 500 mcg PO DAILY 04/13/25 metoclopramide HCl 10 mg tablet 10 mg PO Q6H PRN PRN nausea 04/13/25 pantoprazole 40 mg tablet,delayed release 40 mg PO DAILY 04/13/25 prednisone 5 mg tablet 5 mg PO DAILY 04/13/25 triamcinolone acetonide 0.1 % topical cream 1 applic topical BID 04/13/25 apixaban 5 mg (74 tabs) tablets in a dose pack (Eliquis DVT-PE Treat 30D Start) 5 mg PO BID #74 tabs 04/20/25 atenolol 25 mg tablet 25 mg PO BID #60 tabs 04/20/25 Hospital Course Operations None Procedures 2-D Echocardiogram Summary of Care Provided Minutes Spent on Discharge: 45 Hospital Course: Patient is a 64-year-old female with a past medical history as outlined was admitted to the ED on 04/13/2025 with complaint of lightheadedness and dizziness. His symptoms were initially thought to be due to upper respiratory tract infection and she was started on prednisone and Z-Scott on outpatient basis. However this did not cause significant improvement so she came into the ED on the day of admission. She was found to be tachycardic and she also had a history of metastatic melanoma. CTA of the chest showed a large saddle embolism with right heart strain on CT. She was placed on heparin drip. Vascular surgery was not available and [facility] so plan was for her to be transferred to [facility] for possible catheter directed thrombectomy rest thrombolytics. However there was no bed available so she was admitted to the hospital to be managed for submassive PE due to saddle pulmonary embolism with evidence of right heart strain. She was continued on the heparin drip and eventually switched to subcu Lovenox. Patient experienced a prolonged wait for bed at [facility] and as a day of discharge 04/20/2025 there was still no bed available. Patient had been on atenolol and this was resumed. During the course of admission she experienced profound tachycardia especially with exertion with her heart rate going up to the 150s. However this subsequently improved and eventually resolved after her atenolol was resumed. On day of discharge 04/20/2025 the tachycardia had resolved and her heart rate was normal. On 04/19/2025 I called and spoke to the vascular surgeon Dr. Aguilera on phone. I inquired whether the catheter directed thrombectomy would still be a feasible option 1 week out side her admission. She stated that the catheter directed thrombectomy was best done within the first 48 hours. After that the clot became more fibrotic and there was an increased risk of injury to the pulmonary artery with a thrombectomy. Was therefore unlikely that patient would even have the procedure done if she was transferred to [place] and recommended that she could be discharged home on oral anticoagulants. Patient also expressed her desire to be discharged home and so was discharged on 04/20/2025. She was discharged on therapeutic dose of Eliquis to take 10 mg twice daily for the first 7 days and then to continue with 5 mg twice daily. She was counseled that she would need to be anticoagulated for least 6 months. She is follow-up with her primary care doctor and was also referred to vascular surgery and pulmonology on outpatient basis. Patient was seen and examined prior to discharge. She had no active complaints and had an uneventful night. Review of systems otherwise negative. Labs and vitals reviewed. Home medications reviewed and reconciled. Physical Exam Const alert, oriented x3, no apparent distress and well nourished General Appearance: cooperative and comfortable HEENT normocephalic, head/scalp atraumatic, hearing grossly normal bilaterally, moist oral mucous membranes and oropharynx normal Mouth: oral and palatal mucosa normal Eyes EOMs intact bilaterally and conjunctivae normal Neck supple and no JVD Lymph Lymphatic: no lymphedema noted Resp normal respiratory effort, normal air movement, no retractions, no use of accessory muscles and clear to auscultation bilaterally Cardio regular rhythm, S1 normal heart sound, S2 normal heart sound and no murmurs GI normal to inspection, nondistended, normoactive bowel sounds, soft to palpation, non-tender and non-distended Extremity normal to inspection, full ROM, normal capillary refill, no clubbing, cyanosis or edema and no calf tenderness General Extremity: no tenderness to palpation of joints or extremities Skin no rashes or lesions noted General Skin Exam: no breakdown Neuro oriented x3, CN's II-XII intact bilaterally, moves all extremities, no focal motor deficits and no sensory deficits noted Motor Exam: strength 5/5 throughout Psych thought process normal, cooperative and affect normal Appearance: appropriate Weight / BMI Weight Weight: 133 lb 9.602 oz Body Mass Index (BMI) 21.5 ABG / Lab / Microbiology Data 04/20/25 04:53 04/20/25 04:53 Laboratory: Laboratory Results - last 24 hr 04/20/25 04:53: WBC 6.1, RBC 3.98 L, Hgb 10.5 L, Hct 33.1 L, MCV 83.2, MCH 26.4 L, MCHC 31.7 L, RDW Std Deviation 51.5 H, RDW Coeff of Marie 17.0 H, Plt Count 187, MPV 9.9, Immature Gran % (Auto) 4.100 H, Neut % (Auto) 59.3, Lymph % (Auto) 27.9, [place] % (Auto) 8.2, Eos % (Auto) 0.3, Baso % (Auto) 0.2, Absolute Neuts (auto) 3.6, Absolute Lymphs (auto) 1.70, Nucleated RBC % 0, Sodium 139, Potassium 3.9, Chloride 102, Carbon Dioxide 26.1, Anion Gap 10, BUN 8, Creatinine 0.60 L, Estim Creat Clear Calc 64.76, Est GFR (MDRD) Non-Af 99, BUN/Creatinine Ratio 12.8, Glucose 91, Calcium 8.6 D/C Instructions Discharge Activity: Return to Normal Activity Weight Bearing Status: Weight bearing as tolerated Call your doctor if you observe: Fever of 101 or Higher, Shortness of breath, Dizziness, Swelling in the ankles, Chest pain, Increased palpitations (irregular heartbeat) and Calf discomfort DC O2, CPAP, BIPAP Needs Home O2 Discharge instructions: No DC home with Oxygen: No Meaningful Use Info Meaningful Use Meaningful Use Diagnoses (Choose all that apply): VTE VTE Anticoag overlap given w/in hospital stay or rx'd at dc?: Yes Pt receive overlap for 5 days?: No Reason overlap not ordered, prescribed, or given for 5 days: Treatment Not Indicated Discharge Plan Admission Admit Date/Time: 04/13/25 14:50 Primary Reason for Your Visit: saddle PE Attending Provider: Kady Lima Primary Care Provider: Germania Alvarez Consulting Providers: Jose Lowry Instructions Patient Instructions: DVT/PE Discharge instruction sheet Discharge Orders/Prescriptions Prescriptions: New atenolol 25 mg Tablet 25 mg PO BID Qty: 60 2RF Eliquis DVT-PE Treat 30D Start 5 mg (74 tabs) tablets,dose pack 5 mg PO BID Qty: 74 0RF Rx Instructions: take 2 tabs (10mg) twice daily for the first 7 days, then continue with one tablet (5mg) twice daily Continued cholecalciferol (vitamin D3) 25 mcg (1,000 unit) capsule 50 mcg PO DAILY vitamin b12 500 mg 500 mcg PO DAILY uricalm cranberry 2 tab PO DAILY Rx Instructions: 2 tabs Adult 50 Plus Probiotic 4 billion cell capsule 4,000 mmu cells PO DAILY Rx Instructions: administer with a meal famotidine 20 mg tablet 20 mg PO BID potassium chloride 10 mEq tablet extended release 10 meq PO QDAY cetirizine [Zyrtec] 10 mg tablet 10 mg PO QDAY prednisone 5 mg tablet 5 mg PO DAILY pantoprazole 40 mg tablet,delayed release (DR/EC) 40 mg PO DAILY metoclopramide HCl 10 mg tablet 10 mg PO Q6H PRN PRN (Reason: nausea) triamcinolone acetonide 0.1 % cream 1 applic topical BID cyanocobalamin (vitamin B-12) 1,000 mcg capsule 500 mcg PO DAILY Discontinued atenolol 50 mg tablet 25 mg PO BID Referrals / Follow Up: Boo Zamora DO [Med Staff - Active Staff] - Within 2 Weeks Nirmal Aguilera MD [Med Staff - Active Staff] - Within 2 Weeks Antonio,Germania, MD [Primary Care Provider] - Within 1 Week Disposition Disposition (needs filled in before D/C Order can be placed): Home, Self Care Charges/Coding Visit Charges Inpatient E&M: 48961 Disch Hosp >30min
--- NOTE | 2025-04-20 13:08 | CASEMGMT ---
FREDERICK SNELL received script for walker, referral made to Luca via [facility]. Luca advised RN CHANNING to provide walker from stock. Patient has prescription for Eliquis, FREDERICK SNELL called [facility] copay is $533.94. FREDERICK SNELL provided walker to patient. RN CHANNING updated patient regarding Eliquis copay and provided Eliquis savings card. Patient had no further questions or concerns.
== END 2025-04-20 14:29 | disposition home or self-care (01) | DRG 175 ==
LOC: ED 13:53 → ICU 14:57 → PCU 04-19 16:15
PROVIDERS: Admitting Provider Family Medicine; Emergency Provider Emergency Medicine; PCP Internal Medicine; Visit Provider Student in an Organized Health Care Education/Training Program
DX: I26.02 Saddle embolus of pulmonary artery with acute cor pulmonale (principal); C77.4 Secondary and unspecified malignant neoplasm of inguinal and lower limb lymph nodes; E87.1 Hypo-osmolality and hyponatremia; Z66 Do not resuscitate; C43.72 Malignant melanoma of left lower limb, including hip; I10 Essential (primary) hypertension; K21.9 Gastro-esophageal reflux disease without esophagitis; E87.6 Hypokalemia; Z79.899 Other long term (current) drug therapy; R53.1 Weakness
CPT/HCPCS: 36415; 71275; 80048; 83735; 83880; 84100; 84443; 84484; 85025; 85610; 85730; 93005; 93306; 94762; 97116; 97161; 97166; 97530; 97802; 99285; Q9967; A4216

== ENCOUNTER 2025-05-29 15:55 | Inpatient (IN) | payer MEDICARE, OTHER, SELFPAY ==
[2025-05-29 16:04] VITALS: BP 107/74; PULSE 92; RESP 18; TEMP 35.9; O2SAT 98; BMI 19.8
[2025-05-29] MEDS: Creon 12,000 unit DR CapSULE 1 CAP PO (18:04)
--- NOTE | 2025-05-29 20:01 | HP.PCM_ITS ---
HPI - General General Date of Admission: 05/29/25 Date of Service: 05/29/25 Chief Complaint: Here for rehabilitation. HPI Narrative BRIELLE HANKINS, is a 64 Female who presents with followin05/22/2025 Admit [facility] nausea, vomiting, diarrhea. Malignant melanoma left lower extremity status post immunotherapy. Recent saddle pulmonary embolism on Eliquis. Recent admission for nausea/vomiting/diarrhea. 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 Unable to tolerate oral medications. Dr. Martínez gave Remicade for treatment of checkpoint inhibitor colitis. Patient dehydrated, Dr. Martínez recommended admission for IV fluids. 05/22/2025 IV fluids, Solu-medrol, replete electrolytes, consult GI for checkpoint inhibitor colitis, dehydration. Consult hematology/oncology for malignant melanoma. Eliquis intolerable, Lovenox for saddle pulmonary embolism. Observed off saline. Creon ordered per GI recommendation. H&H stable on anticoagulation. EGD done during stay with gastritis and pyloric stenosis, biopsies done, retained food throughout, GI waiting on biopsies before discussing further. Folate added for folate deficiency. Appetite seems to be steadily improving. Switch back to compazine from reglan. Patient reports compazine works better. Plan for outpatient GI workup and test for SIBO, gastric emptying studies, colonoscopy with biopsies. Order placed by GI. Plan outpatient MRI to hair evaluate 3cm right hepatic lobe lesion. Changed to oral prednisone on 05/28/2025 from IV solu-medrol. 05/29/2025 Admit to TCU with debility, here for rehabilitation, strengthening, prior to discharge home alone. [facility] Medical History Acute cor pulmonale due to saddle embolus of pulmonary artery Metastatic melanoma Malignant melanoma of left heel Wears contact lenses Anxiety Arthritis Anemia Back pain Injury of head and neck History of ulceration History of IBS Gastric reflux Non-smoker Leg cramps History of edema White coat syndrome with hypertension History of echocardiogram History of stress test Cardiology follow-up encounter MVP (mitral valve prolapse) Benign tumor of lung Irritable bowel syndrome Home Medications ?Medication ?Instructions ?Recorded ?Last Taken ?Type cholecalciferol (vitamin D3) 25 50 mcg PO DAILY Unknown History mcg (1,000 unit) capsule lactobacillus combination no.9 4 4,000 mmu cells PO DA ISAÍAS 01/21/24 Unknown History billion cell capsule (Adult 50 Plus Probiotic) cetirizine 10 mg tablet (Zyrtec) 10 mg PO QDAY 5 Unknown History famotidine 20 mg tablet 20 mg PO BID GERD 03/23/25 0 05/29/25 08:08 History cyanocobalamin (vitamin B-12) 500 mcg PO DAILY 5 Unknown History 1,000 mcg capsule metoclopramide HCl 10 mg tablet 10 mg PO Q6H PRN PRN n ausea 04/13/25 Unknown History pantoprazole 40 mg tablet,delayed 40 mg PO 0600 GERD 0 04/13/25 05/29/25 06:30 History release triamcinolone acetonide 0.1 % 1 applic topical BID Unknown History topical cream escitalopram oxalate 5 mg tablet 5 mg PO QDAY #60 tabs 04/26/25 Unknown Rx (Lexapro) lorazepam 0.5 mg tablet 0.5 mg PO Q8H PRN anxiety 05/28/25 09:30 History uricalm cranberry 2 tab PO DAILY PRN 04/26/25 Unknown History Lactobacillus acidophilus 1 tab PO DAILY PROBIOTIC Unknown History (Acidophilus chewable tablet) acetaminophen 325 mg capsule 650 mg PO Q6H PRN Pain 1- 10 05/29/25 05/29/25 02:23 History apixaban 5 mg (74 tabs) tablets in 5 mg PO BID blood t hinner 05/29/25 05/29/25 08:05 History a dose pack (Eliquis DVT-PE Treat 30D Start) atenolol 25 mg tablet 12.5 mg PO BID heart 5 05/28/25 09:06 History binimetinib 15 mg tablet (Mektovi) 45 mg PO Q12H Chemo 05/29/25 Unknown History Held on 05/29/25. Instructions: While on TCU diphenhydramine HCl 25 mg capsule 50 mg PO DAILY PRN a llergy 05/29/25 Unknown History (Allergy (diphenhydramine)) encorafenib 75 mg capsule 450 mg PO DAILY chemo Unknown History (Braftovi) Held on 05/29/25. Instructions: until 06/19/25 folic acid 1 mg tablet 1 mg PO DAILY supplement 05/29/25 08:00 History ibgeco-artqoydh-uordbkq 2 cap PO TID Digestion 05/2905/29/25 12:05 History 6,000-19,000-30,000 unit capsule,delayed rel (Creon) loperamide 2 mg capsule 2 mg PO TID PRN diarrhea Unknown History potassium chloride 10 mEq 10 meq PO BID SUPPLEMENT Unknown History tablet,extended release prednisone 20 mg tablet 10 mg PO DAILY inflammation 05/29/25 Unknown History prednisone 20 mg tablet 20 mg PO DAILY inflammation 05/29/25 Unknown History prednisone 20 mg tablet 30 mg PO DAILY inflammation 05/29/25 Unknown History prednisone 20 mg tablet 40 mg PO DAILY inflamation 0 05/29/25 05/29/25 08:16 History prochlorperazine maleate 10 mg 10 mg PO Q6H PRN PRN 05/29/25 14:10 History tablet nausea/vomiting Allergy/AdvReac Type Severity Reaction Status Date / Time ondansetron (From Zofran) Allergy Mild Itching Verified 04/26/25 11:12 Iodinated Contrast Media Allergy NEEDS Verified 04/26/25 11:12 FOLLOW-UP latex Allergy Unknown Verified 04/26/25 11:12 morphine Allergy NEEDS Verified 04/26/25 11:12 FOLLOW-UP oxycodone (From OxyContin) Allergy NEEDS Verified 04/26/25 11:12 FOLLOW-UP azithromycin AdvReac Severe Upset Verified 04/26/25 11:15 Stomach acetaminophen (From Vicodin) AdvReac FAST HR Verified 04/26/25 11:12 hydrocodone (From Vicodin) AdvReac FAST HR Verified 04/26/25 11:12 Opioids - Morphine Analogues AdvReac Other Verified 04/26/25 11:12 (narcotics) Family History Aunt Breast cancer metastasized to bone, brain Diabetes Mother , passed at age 32 Cervical cancer Ovarian cancer Uterine cancer Grandmother Cervical cancer Diabetes, Onset Age: 70 Myocardial infarction Brother Diabetes, Onset Age: 46 Myocardial infarction Hypertension High cholesterol Thyroid disorder Grandfather Testicular cancer Skin cancer unknown specifics Father Diabetes, Onset Age: 80 Myocardial infarction Hypertension High cholesterol Kidney disease Liver disease Thyroid disorder Other Cancer Heart disease Peptic ulcer disease Surgical History S/P foot surgery History of esophagogastroduodenoscopy (EGD) Hx of colonoscopy Hx of lithotripsy History of back surgery History of lung surgery Social History adopted: No household members: none [facility] current occupational status: retired pets and animals: No history of recent travel: No sexually active: No Smoking Status: Never smoker alcohol intake: never substance use type: does not use caffeine: No what type of physical activity do you participate in: walking frequency: daily john/yazidism: Cheondoism seatbelt use: always do you feel safe at home: Yes ROS Constitutional Constitutional: Denies chills, fever(s) or weight gain ENT HEENT: Denies headache(s), nasal congestion or nasal discharge Cardiovascular Cardiovascular: Denies chest pain or palpitations Respiratory/Chest Respiratory/Chest: Denies cough, excessive phlegm production or shortness of breath with exertion Gastrointestinal Gastrointestinal: Denies abdominal pain, nausea or vomiting Genitourinary Genitourinary: Denies dysuria Musculoskeletal Musculoskeletal: Denies joint pain or joint swelling Integumentary Integumentary: Denies rash or wounds Neurologic Neurologic: Denies focal weakness, numbness or tingling Psychiatric Psychiatric: Denies anxiety, auditory hallucinations, depression, homicidal ideation or suicidal ideation Vital Signs Vital Signs Vital Signs: 05/29/25 16:04 05/29/25 16:04 Temperature 96.6 F L Temperature Source Temporal Pulse Rate 92 Pulse Rhythm Regular Pulse Strength Normal (2+) Respiratory Rate 18 18 Respiratory Effort Normal Non-Labored Respiratory Depth Normal Respiratory Pattern Normal Blood Pressure 107/74 Blood Pressure Mean 85 Blood Pressure Source Monitor Blood Pressure Position Semi-Fowlers Blood Pressure Location Right Arm Pulse Ox 98 98 Oxygen Delivery Method Room Air Room Air Weight Weight: 55.849 kg Body Mass Index (BMI) 19.8 Physical Exam Const alert General Appearance: cooperative HEENT normocephalic Eyes PERRL and EOMs intact bilaterally Neck supple, no JVD and no carotid bruits Resp normal respiratory effort, normal air movement and clear to auscultation bilaterally Cardio regular rate and regular rhythm GI normal to inspection, nondistended, normoactive bowel sounds, non-tender and non-distended Extremity normal capillary refill General Extremity: Negative for edema Skin no rashes or lesions noted General Skin Exam: no breakdown Psych affect normal Appearance: appropriate Assessment & Plan Assessment/Plan (1) Debility: (2) Metastatic melanoma: (3) Nausea vomiting and diarrhea: (4) Inflammation of mucous membrane of small intestine and colon as sequela of immune checkpoint inhibitor therapy: (5) Saddle pulmonary embolus: (6) Coronary artery disease: (7) Lumbar disc disease: PLAN: Plan 64 year old female with below past medical history significant for metastatic malignant melanoma, hospitalized for checkpoint inhibitor colitis, admitted to TCU with debility, here for rehabilitation, strengthening, prior to discharge home alone. * Debility - PT/OT. * Pain - Tylenol 1000mg q6 prn pain (1-10). * Bowel - Loperamide 2mg tid prn. * Adult immunization - Administer pneumonia vaccine, covid vaccine, flu vaccine as appropriate. * DVT prophylaxis - Eliquis. * Saddle pulmonary embolism - Eliquis 5mg bid. * CAD - Atenolol 12.5mg bid, Eliquis 5mg bid. * GERD - Pantoprazole 40mg daily, Famotidine 20mg bid. * Folate deficiency - Folic acid 1mg daily. * GI prophylaxis - Lactobacillus 1 capsule daily. * Pancreatic insufficiency - Creon 1 capsule tidcm. * Skin irritation - Calmoseptine topical bid. * Hypokalemia - KCL 10meq bid. * Nausea - Compazine 10mg q6 prn. * Checkpoint inhibitor colitis - Prednisone taper. The following psychotropic medication was present on admission: Lorazepam 0.5mg q8 prn. Psychotropic medication therapy is indicated for a diagnosis of: Anxiety. Based on my clinical evaluation, continuation of the medication is necessary at this time. Gradual dose reduction plan (select one): ____ GDR will be attempted. Will monitor patient symptoms and behaviors in response to GDR. __x__ GRD contraindicated. 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
[2025-05-29] MEDS: APIXABAN 5 MG TABLET PO (20:29)
[2025-05-29 20:30] VITALS: BP 99/68; PULSE 60; RESP 16
[2025-05-29] MEDS: Potassium Chloride Oral Tablet 10 MEQ PO (20:30)
--- NOTE | 2025-05-29 20:36 | NURSING ---
PATIENT REQUESTS PRN ATIVAN AT THIS TIME DESPITE NON-PHARMACOLOGIC INTERVENTIONS (SEE MAR ASSESSMENT). INQUIRED CAUSE OF ANXIETY TO PATIENT, PATIENT STATES I JUST HAVE ALOT OF ANXIETY REGARDING MY HEALTH, I TAKE MY ATIVAN EVERY NIGHT. PRN ATIVAN ADMINISTERED ORDERED PER PT. REQUEST. NO DISTRESS OBSERVED, PERSONAL ITEMS AND CALL LIGHT WITHIN REACH. DENIES FURTHER REQUESTS AT THIS TIME.
--- NOTE | 2025-05-30 06:38 | NURSING ---
C/o difficulty sleeping requests sleep medication to promote sleep and requesting stronger pain medication PRN for chronic back pain. Written communication left for Dr. Serrano.
[2025-05-30 07:02] LABS: Hematocrit 28.6 % (37-47); Hemoglobin 9.2 g/dL (12.0-15.0); Mean Corp Hgb Conc 32.2 g/dL (32-36); Mean Corpuscular Volume 84.9 fL (81-99); Mean Platelet Vol. 9.4 fl (6.2-12.0); POSITIVE COUNT YES; POSITIVE MORPHOLOGY YES; Platelet Count 204 K/mm3 (150-450); RBC Distribution Width CV 17.6 % (11.6-14.6); RBC Distribution Width SD 53.8 fl (35.1-43.9); Red Blood Count 3.37 M/mm3 (4.2-5.4); White Blood Count 7.6 K/mm3 (4.4-11.0)
[2025-05-30 07:17] LABS: Differential Indicated MANUAL DIFF
[2025-05-30 07:38] LABS: Neutrophil-Band 3 % (0-5); Neutrophil-Segmented 59 % (47-70); Red Cell Morphology NORM C+C NORMAL (NORM C&C); Total Cells Counted 100 (MANUAL DIFF)
[2025-05-30 07:44] LABS: Anion Gap 9 (5-15); BUN 11 mg/dL (4-19); BUN/Creat Ratio 21.1 RATIO (10-20); Calcium,Total 8.3 mg/dL (7.6-11.0); Carbon Dioxide 24.1 mmol/L (21.0-32.0); Chloride 102 mmol/L (98-108); Estimated Creatinine Clearance 60.99 ml/min (50-250); Glucose 106 mg/dL (70-99); Magnesium 1.9 mg/dL (1.5-2.2); Potassium 3.8 mmol/L (3.3-5.1)
[2025-05-30] MEDS: Creon 12,000 unit DR CapSULE 1 CAP PO ×3 (07:46→17:36)
[2025-05-30] MEDS: Potassium Chloride Oral Tablet 10 MEQ PO ×2 (07:46→20:28)
[2025-05-30] MEDS: APIXABAN 5 MG TABLET PO ×2 (07:46→20:27)
[2025-05-30 10:00] VITALS: BP 103/76; PULSE 90; RESP 16; TEMP 36.7; O2SAT 98
--- NOTE | 2025-05-30 10:24 | NURSING ---
Orquidea from Dr. Martínez office called to check on patient and to give verbal order for Prednisone 60mg daily for 2 weeks and they will check in weekly and will taper Prednisone. She also states Dr. Martínez would really like patient to receive infusion on 06/05/25 and this nurse states that while patient is on TCU, infusions will be cancelled and patient was aware of this. Orquidea states they will call back this Thursday to see if patient is still on TCU and will re-schedule infusion.
[2025-05-30] MEDS: Tuberculin,Purif.prot.deriv. 50 TU/ML Vial 0.1 ML ID (10:52)
--- NOTE | 2025-05-30 11:28 | PHA.CONS_ITS ---
Documented by User: Adria Fierro 05/30/25 11:58 TCU RX Drug Regimen Review Subjective/Objective Subjective/Objective Subjective: TCU admission note. 64 year old female with below past medical history significant for metastatic malignant melanoma, hospitalized for chec kpoint inhibitor colitis, admitted to TCU with debility, here for rehabilitation, strengthening, prior to discharge home alone. Objective: Allergies ondansetron (From Zofran) Allergy (Mild, Verified 04/26/25 11:12) Itching itching/redness at IV site once given med in PACU Iodinated Contrast Media Allergy (Verified 04/26/25 11:12) NEEDS FOLLOW-UP latex Allergy (Verified 04/26/25 11:12) Unknown morphine Allergy (Verified 04/26/25 11:12) NEEDS FOLLOW-UP oxycodone (From OxyContin) Allergy (Verified 04/26/25 11:12) NEEDS FOLLOW-UP azithromycin Adverse Reaction (Severe, Verified 04/26/25 11:15) Upset Stomach acetaminophen (From Vicodin) Adverse Reaction (Verified 04/26/25 11:12) FAST HR hydrocodone (From Vicodin) Adverse Reaction (Verified 04/26/25 11:12) FAST HR Opioids - Morphine Analogues (narcotics) Adverse Reaction (Verified 04/26/25 11:12) Other heart palpitations, crawl up the wall, sleepiness Current Medications Generic Name Dose Route Start Last Admin Trade Name Freq PRN Reason Stop Dose Admin Acetaminophen 1,000 mg 05/29/25 20:16 05/29/25 20:32 Acetaminophen 500 Mg Tablet PO 1,000 mg Q6H PRN Administration Pain Score 1-5 Apixaban 5 mg 05/29/25 22:00 05/30/25 07:46 Apixaban 5 Mg Tablet PO 5 mg BID CARMEN Administration Atenolol 12.5 mg 05/29/25 22:00 05/30/25 07:49 Atenolol 25 Mg Tablet PO 12.5 mg BID CARMEN Administration Protocol Calamine/Phenol 1 applic 05/29/25 22:00 05/30/25 07:53 Menthol/Lanolin/Calamine/Znox 113 Gm Tube TOPICAL 1 applic BID CARMEN Administration Protocol Famotidine 20 mg 05/29/25 22:00 05/30/25 07:50 Famotidine 20 Mg Tablet PO 20 mg BID CARMEN Administration Folic Acid 1 mg 05/30/25 08:00 05/30/25 07:49 Folic Acid 1 Mg Tablet PO 1 mg BREAKFAST CARMEN Administration Loperamide HCl 2 mg 05/29/25 16:30 Loperamide 2 Mg Capsule PO TID PRN DIARRHEA Lorazepam 0.5 mg 05/29/25 16:30 05/29/25 20:32 Lorazepam 0.5 Mg Tablet PO 0.5 mg Q8H PRN Administration ANXIETY Melatonin 10 mg 05/30/25 22:00 Melatonin 10 Mg Tablet PO QHS CARMEN Pancrelipase 1 cap 05/29/25 17:53 05/30/25 07:46 Creon 12,[address] Capsule PO 1 cap TIDCM CARMEN Administration Pantoprazole Sodium 40 mg 05/30/25 08:00 05/30/25 07:50 Pantoprazole Sodium 40 Mg Tablet PO 40 mg 0800 CARMEN Administration Potassium Chloride 10 meq 05/29/25 22:00 05/30/25 07:46 Potassium Chloride Oral Tablet 10 Meq PO 10 meq BID CARMEN Administration Prednisone 60 mg 05/31/25 10:00 Prednisone 20 Mg Tablet PO 06/13/25 08:01 DAILYCM [facility] Prochlorperazine Maleate 10 mg 05/29/25 16:44 05/30/25 03:24 Prochlorperazine 5 Mg Tablet PO 06/12/25 16:45 10 mg Q6H PRN PRN Administration nausea/vomiting Tramadol HCl 50 mg 05/30/25 07:48 Tramadol 50 Mg Tablet PO Q6H PRN PRN Pain Score 6-10 or Pre PT/OT Tuberculin PPD 0.1 ml 06/06/25 10:00 Tuberculin,Purif.Prot.Deriv. 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 (Acute) Nausea vomiting and diarrhea (Acute) Debility (Acute) Metastatic melanoma (Acute) Vital Signs Temp Pulse Resp BP Pulse Ox O2 Del Method 98.1 F 90 16 103/76 98 Room Air 05/30/25 10:00 05/30/25 10:00 05/30/25 10:00 05/30/25 10:00 05/30/25 10:00 05/30/25 10:00 Oxygen Delivery Method Room Air Weight: 55.849 kg Body Mass Index (BMI) 19.8 Sodium 135 mmol/L (133-145) 05/30/25 06:37 Potassium 3.8 mmol/L (3.3-5.1) 05/30/25 06:37 Chloride 102 mmol/L (98-108) 05/30/25 06:37 Carbon Dioxide 24.1 mmol/L (21.0-32.0) 05/30/25 06:37 Anion Gap 9 (5-15) 05/30/25 06:37 BUN 11 mg/dL (4-19) 05/30/25 06:37 Creatinine 0.52 mg/dL (0.70-1.20) L 05/30/25 06:37 Est GFR (MDRD) Non-Af 102 (>60) 05/30/25 06:37 BUN/Creatinine Ratio 21.1 RATIO (10-20) H 05/30/25 06:37 Glucose 106 mg/dL (70-99) H 05/30/25 06:37 Assessment/Plan: 1. Pain: acetaminophen 1000 mg PO Q6H PRN pain (1-10), Tramadol 50 mg PO Q6H PRN pain. Resident has used 1 PRN dose of acetaminophen and no doses of PRN tramadol so far this admission. No recent LFTs documented. Check LFTs if resident develops symptoms of hepatoxicity. Consider monitoring LFTs if patient using > 3 gm/day of acetaminophen for prolonged period. Do not exceed 4000 mg in 24 hours. Monitor for constipation (last BM: 05/28/25), respiratory depression (current RR range = 16-18 breaths/min), falls and sedation/delirium (Beers). 2. Bowel: loperamide 2 mg PO TID PRN diarrhea. The patient has not used any PRN doses of loperamide so far this admission. Please continue to monitor for PRN medication usage and for constipation/diarrhea. 3. Saddle pulmonary embolism: apixaban 5 mg BID. Monitor for symptoms of bleeding (including melena, hemoptysis, hematuria, epistaxis, new-onset headache), hemoglobin (last Hgb = 9.2 mg/dL on 05/30/25, about 1 point lower than previous hemoglobin ~ 1 month ago). 4. CAD: atenolol 12.5 mg PO BID. Monitor for chest pain, shortness of breath, exercise tolerance, BP (range since admission = 99-107/68-76 mmHg) Monitor for bradyarrhythmia (recent heart rates = 60-92 beats/min), fatigue, sleep disturbance and for new/worsening heart failure symptoms. For diabetic patients, monitor glucose. 5. GERD: Pantoprazole 40 mg PO daily, famotidine 20 mg PO daily. Monitor for diarrhea (consider possibility of C. diff if develops). Monitor renal function (creatinine clearance ~ 61 mL/min on 05/30/25), for delirium and platelet counts (Plt = 204 K/mm3 on 05/30/25). Consider serum magnesium level and B12 level with long-term use if indicated. 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 6. Checkpoint inhibitor colitis: prednisone 60 mg PO daily with meals tapered through 06/13/25. Please continue to monitor blood pressures (range since admission = 99-107/68-76 mmHg), blood glucose levels (BG = 106 mg/dL on 05/30/25), and for agitation and insomnia. 7. Nausea: prochlorperazine 10 mg PO Q6H PRN nausea/vomiting. The resident has used 2 doses of PRN prochlorperazine so far this admission. Please continue to monitor for PRN medication usage and for nausea/vomiting. 8. Pancreatic insufficiency: lipase/protease/amylase 12,000 units/capsule PO TID with meals. Please continue to monitor for GI distress as well as for diarrhea. 9. Hypokalemia: potassium chloride 10 mEq PO daily. Serum potassium = 3.8 mmol/L on 05/30/25. Monitor serum potassium, nausea/stomach upset, symptoms of hypokalemia include muscle cramping. 10. Folate deficiency: folic acid 1 mg PO daily. Please continue to monitor for s/s of folate deficiency. 11. GI prophylaxis: lactobacillus 1 capsule PO daily. Please continue to monitor for GI distress. 12. Skin irritation: calmoseptine 1 application topically BID. Please continue to monitor for skin irritation and skin integrity. 13. Insomnia: melatonin 10 mg PO QHS. Please continue to monitor for insomnia, and for over sedation. Assessment/Plan for indications treated with psychotropic medications: 1. Anxiety: lorazepam 0.5 mg PO Q8H PRN anxiety. Please see provider note regarding stable chronic long-term therapy GDR not recommended. The patient has required X1 PRN dose of lorazepam so far this admission. Monitor for efficacy including resident symptoms, behaviors and indications of distress.Monitor for anxiety.Monitor for tolerability including mental status, cognition, excessive sleepiness, withdrawal or decreased participation in activities and decline in physical functioning.Maximize use of nonpharmacologic/behavioral interventions to facilitate dose reduction or discontinuation as appropriate.Please evaluate the appropriateness of GDR unless contraindicated. If appropriate, GDR should be attempted in 2 separate quarters within the first year of use or admission to TCU.If GDR attempted, monitor resident symptoms/behaviors. Monitor for sedation, mental status and cognition. Monitor for falls (risk fac tor for falls) and implement fall prevention strategies. Monitor for respiratory depression. RR range since admission = current RR range = 16-18 breaths/min. Medical chart and medication regimen reviewed. The following medication irregularities or issues were identified: No recommendations for resident at this time. Date Date of Note: 05/30/25 Documented by User: Dr. Narciso Serrano MD 05/30/25 12:13 TCU RX Drug Regimen Review Provider Comments Provider responsibility Provider Comments to Recommendations by Pharmacy Agree
--- NOTE | 2025-05-30 13:02 | MDS.RN ---
MDS entry tracker complete, pain assessed.
--- NOTE | 2025-05-30 14:22 | CASEMGMT ---
Social Work SW met with patient to complete initial assessment. Introduced self and role. Verified/updated contacts. Patient confirmed code status as DNR-CC. Patient denied wanting to complete advance directives as she is working with an health care attorney to complete. Educated to Medicare benefit and copay coverage. Pt's goal is to return home alone. SW will continue to follow for DC planning. Chikis Arzate MSW TAMPING MACHINE OPERATOR ROAD FORMS
--- NOTE | 2025-05-30 15:56 | CHAPLAIN ---
Type of Pastoral Visit _x__ Initial Visit ___ Follow-up Visit ___ On-call Visit ___ General Patient Visit ___ Spiritual Assessment ___ Family Conference ___ Bereavement ___ Rapid Response ___ Code Blue ___ Other (describe below) Pastoral Care Referral From _x__ Patient ___ Family ___ Nurse ___ Physician ___ Production Sound Mixer ___ Director Of Compensation ___ Other (describe below) Sacrament/Intervention _x__ Active listening ___ Anointing ___ Adventism ___ Bereavement ___ Communion _x__ Yovana exploration ___ ___ Life review _x__ Prayer ___ Reconciliation ___ Sacrament of Sick _x__ Supportive presence ___ Wedding ___ Other (describe below) Pastoral Comments patient had been seen in a previous admission; pt reports that she has been in another hospital twice and for longer period with two brief breaks to be at home; pt admits to being weary and longing for home; pt says that she is thankful to be in TCU where hopefully she can make enough progress to go home; pt states a few times that I'm just holding on to my yovana; pt welcomes spiritual care support and presence of the worm farmer; pt asks for further visits if possible; prayer given
[2025-05-30 16:27] VITALS: BMI 19.6
--- NOTE | 2025-05-30 16:57 | NURSING ---
Phosphorus 1.[address] Serrano made aware. Supplement ordered and recheck on 06/05.
[2025-05-30] MEDS: MELATONIN 10 MG TABLET PO (20:27)
[2025-05-30] MEDS: Na Biphos/Potassium Phosphate PACKET 1 PACKET PO (20:32)
[2025-05-30 20:42] VITALS: BP 122/81; PULSE 82; RESP 16
[2025-05-31 07:44] LABS: Hematocrit 29.9 % (37-47); Hemoglobin 9.4 g/dL (12.0-15.0)
[2025-05-31] MEDS: Creon 12,000 unit DR CapSULE 1 CAP PO ×3 (08:02→16:48)
[2025-05-31] MEDS: Potassium Chloride Oral Tablet 10 MEQ PO ×2 (08:03→21:17)
[2025-05-31] MEDS: APIXABAN 5 MG TABLET PO ×2 (08:03→21:20)
[2025-05-31] MEDS: Na Biphos/Potassium Phosphate PACKET 1 PACKET PO ×2 (08:05→21:20)
[2025-05-31 08:11] VITALS: BP 94/66; PULSE 87; RESP 16; TEMP 36.1; O2SAT 98
--- NOTE | 2025-05-31 11:34 | NURSING ---
PT AND FAMILY UPDATED ON COVID POSITIVE PT ON FLOOR.
--- NOTE | 2025-05-31 13:15 | NURSING ---
Step Down Nurse Note; Activity Asset: Uday Medina prefers to be called Katrin. Katrin is independent in her choice of daily activities. She has her smartphone, watches tv, reads and has word puzzles. She enjoys sitting outside and spending tome w/family. Staff will encourage social activities, remind her of weekly activities and respect her right to say no.
[2025-05-31 20:00] VITALS: PULSE 78; O2SAT 97
[2025-05-31 21:14] VITALS: BP 106/71; PULSE 78
[2025-05-31] MEDS: MELATONIN 10 MG TABLET PO (21:20)
[2025-06-01 06:54] VITALS: PULSE 82; O2SAT 97
[2025-06-01] MEDS: Creon 12,000 unit DR CapSULE 1 CAP PO ×3 (07:53→17:13)
[2025-06-01] MEDS: Potassium Chloride Oral Tablet 10 MEQ PO ×2 (07:54→20:35)
[2025-06-01] MEDS: APIXABAN 5 MG TABLET PO ×2 (07:54→20:35)
[2025-06-01] MEDS: Na Biphos/Potassium Phosphate PACKET 1 PACKET PO ×2 (07:55→20:34)
[2025-06-01 08:00] VITALS: BP 113/72; PULSE 94; RESP 18; TEMP 36.4; O2SAT 98
--- NOTE | 2025-06-01 14:29 | NURSING ---
PT COMPLAINING OF LT SHOULDER PAIN AFTER THERAPY. PRN TYLENOL GIVEN AND KPAD ORDERED.
[2025-06-01] MEDS: MELATONIN 10 MG TABLET PO (20:35)
[2025-06-01 20:46] VITALS: BP 98/63; PULSE 73; RESP 16
[2025-06-02] MEDS: Creon 12,000 unit DR CapSULE 1 CAP PO ×3 (08:07→17:03)
[2025-06-02] MEDS: Potassium Chloride Oral Tablet 10 MEQ PO ×2 (08:10→20:42)
[2025-06-02] MEDS: Na Biphos/Potassium Phosphate PACKET 1 PACKET PO ×2 (08:10→20:43)
[2025-06-02] MEDS: APIXABAN 5 MG TABLET PO ×2 (08:10→20:42)
[2025-06-02 10:00] VITALS: PULSE 87; O2SAT 97
[2025-06-02 10:23] VITALS: BP 102/63; PULSE 87; RESP 16; TEMP 36.1; O2SAT 99
--- NOTE | 2025-06-02 13:19 | NURSING ---
Orquidea from DR Martínez's office called with order to decrease prednisone 40mg daily d/t edema in legs
--- NOTE | 2025-06-02 15:19 | CHAPLAIN ---
Type of Pastoral Visit ___ Initial Visit _x__ Follow-up Visit ___ On-call Visit ___ General Patient Visit ___ Spiritual Assessment ___ Family Conference ___ Bereavement ___ Rapid Response ___ Code Blue ___ Other (describe below) Pastoral Care Referral From _x__ Patient ___ Family ___ Nurse ___ Physician ___ Road Design Draftsperson ___ Bearing Ring Assembler ___ Other (describe below) Sacrament/Intervention _x__ Active listening ___ Anointing ___ Lutheran ___ Bereavement ___ Communion _x__ Yovana exploration ___ ___ Life review _x__ Prayer ___ Reconciliation ___ Sacrament of Sick _x__ Supportive presence ___ Wedding ___ Other (describe below) Pastoral Comments
[2025-06-02] MEDS: MELATONIN 10 MG TABLET PO (20:42)
--- NOTE | 2025-06-03 01:14 | NURSING ---
Patient c/o not being able to sleep and being uncomfortable. PRN Ativan and Tylenol administered at this time. Patient assisted to bathroom, then back to bed. Call light within reach. Will continue to monitor.
[2025-06-03 07:10] LABS: Hematocrit 27.9 % (37-47); Hemoglobin 8.6 g/dL (12.0-15.0)
[2025-06-03 08:08] VITALS: BP 105/72; PULSE 90; RESP 16; TEMP 36.2; O2SAT 100
[2025-06-03] MEDS: Creon 12,000 unit DR CapSULE 1 CAP PO ×3 (08:11→17:48)
[2025-06-03] MEDS: APIXABAN 5 MG TABLET PO ×2 (08:13→20:26)
[2025-06-03] MEDS: Na Biphos/Potassium Phosphate PACKET 1 PACKET PO ×2 (08:13→20:28)
[2025-06-03] MEDS: Potassium Chloride Oral Tablet 10 MEQ PO ×2 (08:13→20:27)
[2025-06-03] MEDS: MELATONIN 10 MG TABLET PO (20:28)
--- NOTE | 2025-06-03 21:14 | NURSING ---
Patient requested prn Ativan, stating she had just received news that her cousin was transferred to inpatient hospice and may not make it through the night. Emotional support given. Ativan administered when able. Will continue to monitor.
[2025-06-04] MEDS: Potassium Chloride Oral Tablet 10 MEQ PO ×2 (07:56→20:41)
[2025-06-04] MEDS: Creon 12,000 unit DR CapSULE 1 CAP PO ×3 (07:56→17:32)
[2025-06-04] MEDS: APIXABAN 5 MG TABLET PO ×2 (07:57→20:40)
[2025-06-04] MEDS: Na Biphos/Potassium Phosphate PACKET 1 PACKET PO ×2 (07:58→20:41)
[2025-06-04 10:33] VITALS: BP 113/80; PULSE 79; RESP 14; TEMP 36.4; O2SAT 99
[2025-06-04 20:35] VITALS: BP 104/71; PULSE 81
[2025-06-04] MEDS: MELATONIN 10 MG TABLET PO (20:41)
[2025-06-05 03:23] VITALS: PULSE 82; O2SAT 97
[2025-06-05] MEDS: Creon 12,000 unit DR CapSULE 1 CAP PO ×3 (07:49→16:48)
[2025-06-05] MEDS: APIXABAN 5 MG TABLET PO ×2 (07:51→20:55)
[2025-06-05] MEDS: Potassium Chloride Oral Tablet 10 MEQ PO ×2 (07:52→20:55)
[2025-06-05] MEDS: Na Biphos/Potassium Phosphate PACKET 1 PACKET PO ×2 (07:52→20:56)
[2025-06-05 08:02] VITALS: BP 101/69; PULSE 89; RESP 18; TEMP 36.2; O2SAT 95
--- NOTE | 2025-06-05 08:44 | NURSING ---
Link And Link Knitting Machine Operator Note; MDS for 06/05/2025 Compete
--- NOTE | 2025-06-05 12:46 | NURSING ---
PT REQUESTING ACIDOPHILUS TO BE D/C DO TO REFUSING MED AND STATED SHE TAKES HER OWN AT HOME. NOTIFIED AND HAD THIS NURSE D/C MED. RN AWARE
--- NOTE | 2025-06-05 14:34 | NURSING ---
Offered covid vaccine, VIS provided. Resident declines.
[2025-06-05 20:53] VITALS: BP 118/79; PULSE 85
[2025-06-05] MEDS: MELATONIN 10 MG TABLET PO (20:56)
[2025-06-06] MEDS: Creon 12,000 unit DR CapSULE 1 CAP PO ×3 (07:50→17:49)
[2025-06-06] MEDS: APIXABAN 5 MG TABLET PO ×2 (07:51→21:17)
[2025-06-06] MEDS: Potassium Chloride Oral Tablet 10 MEQ PO ×2 (07:51→21:17)
[2025-06-06] MEDS: Na Biphos/Potassium Phosphate PACKET 1 PACKET PO ×2 (07:52→21:17)
[2025-06-06 08:08] LABS: Hematocrit 27.0 % (37-47); Hemoglobin 8.6 g/dL (12.0-15.0); Immature Granulocytes Count 0.230 X10^3/uL (0.0-0.0); Mean Corp Hgb Conc 31.9 g/dL (32-36); Mean Corpuscular Volume 85.2 fL (81-99); Mean Platelet Vol. 8.7 fl (6.2-12.0); NRBC Flagged by Analyzer 0 % (0-5); Platelet Count 302 K/mm3 (150-450); RBC Distribution Width CV 19.5 % (11.6-14.6); RBC Distribution Width SD 59.9 fl (35.1-43.9); Red Blood Count 3.17 M/mm3 (4.2-5.4); White Blood Count 5.8 K/mm3 (4.4-11.0)
[2025-06-06 08:35] LABS: Anion Gap 10 (5-15); BUN 13 mg/dL (4-19); BUN/Creat Ratio 33.2 RATIO (10-20); Calcium,Total 8.1 mg/dL (7.6-11.0); Carbon Dioxide 23.6 mmol/L (21.0-32.0); Chloride 104 mmol/L (98-108); Estimated Creatinine Clearance 60.33 ml/min (50-250); Glucose 86 mg/dL (70-99); Potassium 3.3 mmol/L (3.3-5.1)
[2025-06-06 09:59] VITALS: BP 103/65; PULSE 90; RESP 17; TEMP 36.2; O2SAT 97
[2025-06-06] MEDS: Tuberculin,Purif.prot.deriv. 50 TU/ML Vial 0.1 ML ID (10:04)
--- NOTE | 2025-06-06 14:37 | CHAPLAIN ---
Type of Pastoral Visit ___ Initial Visit _x__ Follow-up Visit ___ On-call Visit ___ General Patient Visit ___ Spiritual Assessment ___ Family Conference ___ Bereavement ___ Rapid Response ___ Code Blue ___ Other (describe below) Pastoral Care Referral From _x__ Patient ___ Family ___ Nurse ___ Physician ___ Pharmacologist ___ Direct Marketing Manager ___ Other (describe below) Sacrament/Intervention _x__ Active listening ___ Anointing ___ Adventism ___ Bereavement ___ Communion ___ Yovana exploration ___ ___ Life review _x__ Prayer ___ Reconciliation ___ Sacrament of Sick ___ Supportive presence ___ Wedding ___ Other (describe below) Pastoral Comments patient had a cousin this week and she refers to this loss; patient encouraged to continue yovana journey and prayer
[2025-06-06 16:00] VITALS: BMI 19.8
[2025-06-06 19:32] VITALS: PULSE 78; RESP 18; O2SAT 100
[2025-06-06 21:13] VITALS: BP 104/63; PULSE 76
[2025-06-06] MEDS: MELATONIN 10 MG TABLET PO (21:17)
--- NOTE | 2025-06-07 08:45 | CASEMGMT ---
Social Work SW completed BIMS () and PHQ-9 () for MDS assessment. Chikis Arzate CREDIT CONTROL ADMINISTRATOR PET COUNSELOR
--- NOTE | 2025-06-07 08:57 | CASEMGMT ---
Social Work pt requesting to set DC date. SW spoke with IDT and is pt adlib with no concerns for DC. SW spoke with pt. Discussed DC plans. Pt is requesting to DC home 06/09. IDT agreeable. Pt states she was active with [facility] and would like to resume services. SW to coordinate. Pt inquired about 3-in-1 commode. SW offered to coordinate through insurance. Pt appreciative. BSC will be delivered to room prior to DC. Pt would still like to have her POC meeting later today. - SW sent referral to [facility] for BSC. Plan: DC home alone 06/09, [facility] PT/OT/SW, BSC Chikis Arzate DIRECT CUSTOMER SERVICE REPRESENTATIVE FINISHED CLOTH EXAMINER
--- NOTE | 2025-06-07 09:08 | CASEMGMT ---
Discharge Planning DOLORES sent to [facility]. Melodie Hoang DC Planning Asst.
[2025-06-07 09:22] VITALS: BP 102/56; PULSE 91; RESP 18; TEMP 36.6; O2SAT 96
[2025-06-07] MEDS: Creon 12,000 unit DR CapSULE 1 CAP PO ×3 (09:23→18:16)
[2025-06-07] MEDS: APIXABAN 5 MG TABLET PO ×2 (09:24→21:39)
[2025-06-07] MEDS: Na Biphos/Potassium Phosphate PACKET 1 PACKET PO ×2 (09:24→21:37)
[2025-06-07] MEDS: Potassium Chloride Oral Tablet 10 MEQ PO ×2 (09:24→21:37)
[2025-06-07 10:00] VITALS: PULSE 91; RESP 18; O2SAT 96
--- NOTE | 2025-06-07 13:33 | MDS.RN ---
Information for the MDS was obtained from review of the clinical record, interview of resident, staff, and direct observation of resident?s care.
--- NOTE | 2025-06-07 16:00 | CASEMGMT ---
Social Work IDT met with patient and 6 friends/family members for care plan meeting. Discussed patient's progress in PT/OT/SN/RDN. Confirmed DC date of 06/09 with [facility] PT/OT/SW - Ac accepted. [employer]?to deliver to [facility] [place] [place]. After disciplines provided information, friend asked several pointed questions, expressing concerns with pt returning home. Which included maintaining nutrition with proper meals, medication management with med changes, transportation, being home alone and wanting to ensure pt will not decline after returning home from being DC'd too early. SW provided active listening to friend's concerns. Provided resources for MOW, transportation?and medical alert. Friend also expressed concern with higher level functional tasks at home. OT will work on laundry and meal prep prior to DC. PT will practice a flight of steps. SW voiced to patient that pts typically do thrive in structured environment with staff holding pt accountable for things such as therapy, balanced meals and meds, and it is important to maintain that structure and routine at home for increased success. Pt expressed understanding and believes she is ready for home. Friend continued with blunt comments and attempted to defend comments by saying to pt, I'm not ganging up on you, Katrin; I'm going to tell you the truth to your face, not behind your back. I've seen you very sick, not eating and I would like to see you here [TCU] another week. SW explained pt is adlib and doing very well, and although understands friend's history with pt's past decline, pt has progressed and IDT agrees with pt's request to DC. No other questions or comments were made and team exited.? - About 1.5 hours later, SW walked by pt's room and overheard continued negative tone and comments about pt's well-being, past decline and concerns for pt. All 6 people remained in the room and this worker wanted to check-in with patient privately. SW requested STAPLER HAND's assistance with asking for pt to come to nurse's station for pt's weight. STAPLER HAND agreed and pt obliged. Pt came to nurse's station and SW observed pt with a distraught look on her face. SW inquired how pt was doing with the family/friends in her room. Pt stated, they won't stop and became tearful. SW offered to speak with pt in SW office and pt agreed. SW spoke with pt further and pt was upset with her friends/family thoughts and stated they don't want pt going home yet. Pt stated, I deserve the right to try and shared pt was not going well before when she was really sick and her family isn't remembering that. Pt voices she has progressed and is doing well now and will continue to follow the proper nutrition, etc. SW agreed that pt is doing well and IDT would intervene with DC if pt was not ready for DC. SW noted that family/friends want pt to succeed and have seen pt at her lowest point, but that does not give them permission to speak to the pt in that way. Pt agreed and appreciative of support. Pt stated she is motivated to succeed at home and show her family she will maintain her progress. SW agreed. SW offered to ask family to leave to allow pt to rest. Pt agreed and appreciative.? SW returned with pt to her room and requested family/friends allow pt to rest. One friend left and the rest acknowledged the request.? SW waited several minutes for the rest of the people to exit the room, and continued to overhear friend speaking to pt with negative tone. SW reentered room and offered to walk the rest of the people out. All obliged and left pt's room.? SW provided additional emotional support after visitors left and pt appreciative. Nurse administered Ativan, per pt's request. ? Chikis Arzate ROAD PRODUCTION GENERAL MANAGER UNDERWATER PHOTOGRAPHER
--- NOTE | 2025-06-07 20:02 | PCM.DC.SUM ---
Providers Date of Admission: 05/29/25 Primary Care Physician: Dr. 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: Status: Acute Code(s): K52.1 - Toxic gastroenteritis and colitis; T45.AX5S - Adverse effect of immune checkpoint inhibitors and immunostimulant drugs, sequela (5) Saddle pulmonary embolus: Status: Acute Code(s): I26.92 - Saddle embolus of pulmonary artery without acute cor pulmonale (6) Coronary artery disease: Status: Acute Code(s): I25.10 - Atherosclerotic heart disease of ruby coronary artery without angina pectoris (7) Lumbar disc disease: Status: Acute Code(s): M51.9 - Unspecified thoracic, thoracolumbar and lumbosacral intervertebral disc disorder Plan 64 year old female with below past medical history significant for metastatic malignant melanoma, hospitalized for checkpoint inhibitor colitis, admitted to TCU with debility, here for rehabilitation, strengthening, prior to discharge home alone. Debility - PT/OT. Pain - Tylenol 1000mg q6 prn pain (1-10). Bowel - Loperamide 2mg tid prn. Adult immunization - Administer pneumonia vaccine, covid vaccine, flu vaccine as appropriate. DVT prophylaxis - Eliquis. Saddle pulmonary embolism - Eliquis 5mg bid. CAD - Atenolol 12.5mg bid, Eliquis 5mg bid. GERD - Pantoprazole 40mg daily, Famotidine 20mg bid. Folate deficiency - Folic acid 1mg daily. GI prophylaxis - Lactobacillus 1 capsule daily. Pancreatic insufficiency - Creon 1 capsule tidcm. Skin irritation - Calmoseptine topical bid. Hypokalemia - KCL 10meq bid. Nausea - Compazine 10mg q6 prn. Checkpoint inhibitor colitis - Prednisone taper. The following psychotropic medication was present on admission: Lorazepam 0.5mg q8 prn. Psychotropic medication therapy is indicated for a diagnosis of: Anxiety. Based on my clinical evaluation, continuation of the medication is necessary at this time. Gradual dose reduction plan (select one): ____ GDR will be attempted. Will monitor patient symptoms and behaviors in response to GDR. __x__ GRD contraindicated. Reason contraindicated: stable chroinc jail use. Medications at Discharge Home Medications famotidine 20 mg tablet 20 mg PO BID GERD 03/23/25 pantoprazole 40 mg tablet,delayed release 40 mg PO 0600 GERD 04/13/25 lorazepam 0.5 mg tablet 0.5 mg PO Q8H PRN anxiety 04/26/25 atenolol 25 mg tablet 12.5 mg PO BID heart 05/29/25 folic acid 1 mg tablet 1 mg PO DAILY supplement 05/29/25 [id number] 6,000-19,000-30,000 unit capsule,delayed rel (Creon) 2 cap PO TID Digestion 05/29/25 acetaminophen 500 mg tablet 1,000 mg (2 x 500 mg) PO Q6H PRN Pain Score 1-5 #0 tabs 06/07/25 apixaban 5 mg tablet (Eliquis) 5 mg PO BID #0 tabs 06/07/25 melatonin 10 mg disintegrating tablet 10 mg PO QHS #0 tabs 06/07/25 potassium chloride 10 mEq tablet,extended release(part/cryst) 10 meq PO BID 30 days #60 tabs 06/07/25 prednisone 20 mg tablet 40 mg (2 x 20 mg) PO DAILYCM 30 days #60 tabs 06/07/25 prochlorperazine maleate 5 mg tablet 10 mg (2 x 5 mg) PO Q6H PRN PRN nausea/vomiting 30 days #120 tabs 06/07/25 tramadol 50 mg tablet 50 mg PO Q6H PRN PRN Pain Score 6-10 Or Pre Pt/Ot 7 days #28 tabs 06/07/25 Hospital Course Operations None Procedures EGD Summary of Care Provided Minutes Spent on Discharge: 35 Hospital Course: 64 year old female with below past medical history significant for metastatic malignant melanoma, hospitalized for checkpoint inhibitor colitis, admitted to TCU with debility, here for rehabilitation, strengthening, prior to discharge home alone. Discharge home alone 06/09/2025, [facility] PT/OT/SW, BSC. BSC: Patient is confined to a single room unable to safely access toilet. Patient is confined to one level of the home environment and there is no toilet on that level. Physical Exam Const alert General Appearance: cooperative HEENT normocephalic Eyes PERRL and EOMs intact bilaterally Neck supple, no JVD and no carotid bruits Resp normal respiratory effort, normal air movement and clear to auscultation bilaterally Cardio regular rate and regular rhythm GI normal to inspection, nondistended, normoactive bowel sounds, non-tender and non-distended Extremity normal capillary refill General Extremity: Negative for edema Skin no rashes or lesions noted General Skin Exam: no breakdown Psych affect normal Appearance: appropriate Medical Records Data Medical Nutrition Assessment Dietitian: Malnutrition Criteria Met Start: 05/31/25 12:01 Freq: Status: Active Protocol: Document 06/07/25 14:47 SLA (Rec: 06/07/25 14:47 SLA [id number]) Nutrition Malnutrition Evidence of Yes Malnutrition Exists Malnutrition (severe Acute Illness/Injury ): Evidenced By Suboptimal Energy Intake (Moderate),Weight Loss (Severe ),Physical Changes (Moderate) Clinical Problem Acute Disease or Injury Related Malnutrition Etiology related to recent hospitalizations for acute illness and cancer tx causing inadequate energy intake Signs/Symptoms as evidenced by 11.8% unplanned wt loss seating captain and fat/ muscle loss throughout body - po intake was meeting <75 % of est nutritional needs, but is improving in past couple of weeks per res. Status Active Problem Recommendation Dietitian Will Regular - can have small portions if Res requests Recommendations/ Will provide magic cup w/ dinner per res request Changes Will provide sauces, gravies, sauce on the side to help moisten foods Rec appetite stimulant to help encourage increased po intake if worsens. Will monitor need for additional rec pending po intake/ wt trends and make additional rec at time of follow up. Weight / BMI Weight Weight: 56.019 kg Body Mass Index (BMI) 19.8 ABG / Lab / Microbiology Data 06/06/25 07:38 06/06/25 07:38 Microbiology: Microbiology 06/05/25 05:18 Nasal Secretion SARS-CoV-2 Antigen (Rapid) - Final 06/03/25 06:07 Nasal Secretion SARS-CoV-2 Antigen (Rapid) - Final 06/01/25 05:46 Nasal Secretion SARS-CoV-2 Antigen (Rapid) - Final D/C Instructions Discharge Activity: Return to Normal Activity, May Shower and Use Walker Weight Bearing Status: Weight bearing as tolerated Call your doctor if you observe: Fever of 101 or Higher, Inability to urinate, Inability to have a bowel movement, Shortness of breath, Dizziness, Fainting spells, Swelling in the ankles, Chest pain and Uncontrolled pain DC O2, CPAP, BIPAP Needs Home O2 Discharge instructions: No Additional Instructions: Discharge home alone 06/09/2025, [facility] PT/OT/SW, BSC. BSC: Patient is confined to a single room unable to safely access toilet. Patient is confined to one level of the home environment and there is no toilet on that level. Please Follow Up With: Nette Blank APRN When: As soon as possible. Meaningful Use Info Meaningful Use Meaningful Use Diagnoses (Choose all that apply): None applicable Discharge Plan Admission Admit Date/Time: 05/29/25 15:55 Attending Provider: Narciso Serrano Chi Primary Care Provider: Germania Alvarez Instructions Additional Instructions / Restrictions: Discharge home alone 06/09/2025, [facility] PT/OT/SW, BSC. BSC: Patient is confined to a single room unable to safely access toilet. Patient is confined to one level of the home environment and there is no toilet on that level. Discharge Orders/Prescriptions Prescriptions: New prochlorperazine maleate 5 mg Tablet 10 mg PO Q6H PRN PRN (Reason: nausea/vomiting) 30 Days Qty: 120 0RF prednisone 20 mg Tablet 40 mg PO DAILYCM 30 Days Qty: 60 0RF tramadol 50 mg Tablet 50 mg PO Q6H PRN PRN (Reason: Pain Score 6-10 Or Pre Pt/Ot) 7 Days Qty: 28 0RF acetaminophen 500 mg Tablet 1,000 mg PO Q6H PRN (Reason: Pain Score 1-5) Qty: 0 0RF potassium chloride 10 mEq Tablet,Er Particles/Crystals 10 meq PO BID 30 Days Qty: 60 0RF Eliquis 5 mg Tablet 5 mg PO BID Qty: 0 0RF melatonin 10 mg Tablet,Disintegrating 10 mg PO QHS Qty: 0 0RF Continued famotidine 20 mg tablet 20 mg PO BID lorazepam 0.5 mg tablet 0.5 mg PO Q8H PRN (Reason: anxiety) pantoprazole 40 mg tablet,delayed release (DR/EC) 40 mg PO 0600 Creon 6,000-19,000 -30,000 unit capsule,delayed release(DR/EC) 2 cap PO TID Rx Instructions: WITH MEALS folic acid 1 mg tablet 1 mg PO DAILY atenolol 25 mg Tablet 12.5 mg PO BID Discontinued cholecalciferol (vitamin D3) 25 mcg (1,000 unit) capsule 50 mcg PO DAILY uricalm cranberry 2 tab PO DAILY PRN Rx Instructions: 2 tabs Adult 50 Plus Probiotic 4 billion cell capsule 4,000 mmu cells PO DAILY Rx Instructions: administer with a meal cetirizine [Zyrtec] 10 mg tablet 10 mg PO QDAY escitalopram oxalate [Lexapro] 5 mg tablet 5 mg PO QDAY Qty: 60 1RF metoclopramide HCl 10 mg tablet 10 mg PO Q6H PRN PRN (Reason: nausea) triamcinolone acetonide 0.1 % cream 1 applic topical BID cyanocobalamin (vitamin B-12) 1,000 mcg capsule 500 mcg PO DAILY diphenhydramine HCl [Allergy (diphenhydramine)] 25 mg capsule 50 mg PO DAILY PRN (Reason: allergy) Rx Instructions: 30 mins prior to contrast CT potassium chloride 10 mEq tablet extended release 10 meq PO BID Acidophilus Tablet,Chewable 1 tab PO DAILY Rx Instructions: Please change to standard acidophilus. prochlorperazine maleate 10 mg tablet 10 mg PO Q6H PRN PRN (Reason: nausea/vomiting) loperamide 2 mg capsule 2 mg PO TID PRN (Reason: diarrhea) prednisone 20 mg tablet 40 mg PO DAILY Rx Instructions: Take 2 tablets PO once daily for 7 days, then 1.5 tablets once daily for 7 days, then 1 ablet once daily for 7 days, then 0.5tablets once daily for 7 days. prednisone 20 mg tablet 30 mg PO DAILY Rx Instructions: days 8-14 of therapy prednisone 20 mg tablet 20 mg PO DAILY Rx Instructions: days 15-21 of therapy prednisone 20 mg tablet 10 mg PO DAILY Rx Instructions: days - of therapy acetaminophen 325 mg capsule 650 mg PO Q6H PRN (Reason: Pain 1-10) Braftovi 75 mg capsule 450 mg PO DAILY Mektovi 15 mg tablet 45 mg PO Q12H Eliquis DVT-PE Treat 30D Start 5 mg (74 tabs) tablets,dose pack 5 mg PO BID Referrals / Follow Up: Germania Alvarez MD [Primary Care Provider, Internal Medicine - [facility]] Disposition Disposition (needs filled in before D/C Order can be placed): Home Health Service
[2025-06-07] MEDS: MELATONIN 10 MG TABLET PO (21:37)
[2025-06-08 08:58] VITALS: BP 107/76; PULSE 103; RESP 16; TEMP 36.1; O2SAT 97
[2025-06-08] MEDS: Na Biphos/Potassium Phosphate PACKET 1 PACKET PO ×2 (09:01→20:38)
[2025-06-08] MEDS: Potassium Chloride Oral Tablet 10 MEQ PO ×2 (09:02→20:40)
[2025-06-08] MEDS: Creon 12,000 unit DR CapSULE 1 CAP PO ×3 (09:02→17:01)
[2025-06-08] MEDS: APIXABAN 5 MG TABLET PO ×2 (09:03→20:40)
--- NOTE | 2025-06-08 15:13 | NURSING ---
Dr Pringle's office called to request patient's Prednisone be decreased to 20mg daily. Dr Serrano made aware, ordered changed.
--- NOTE | 2025-06-08 15:45 | CASEMGMT ---
Social Work Pt was sitting in [facility] and requested to speak with this worker as SW was walking past. SW sat with pt. Pt shared she was still ruminating over yesterday's meeting and interactions with family/friends. SW provided emotional support and active listening as pt shared her feelings. SW shared words of encouragement and empowering pt to stand up for herself. Pt appreciative of support. Chikis Arzate [employer]
[2025-06-08] MEDS: MELATONIN 10 MG TABLET PO (20:38)
[2025-06-09 07:53] VITALS: BP 113/78; PULSE 93; RESP 18; TEMP 36.4; O2SAT 98
[2025-06-09] MEDS: Potassium Chloride Oral Tablet 10 MEQ PO (07:57)
[2025-06-09] MEDS: Creon 12,000 unit DR CapSULE 1 CAP PO ×2 (07:57→12:08)
[2025-06-09] MEDS: Na Biphos/Potassium Phosphate PACKET 1 PACKET PO (07:57)
[2025-06-09] MEDS: APIXABAN 5 MG TABLET PO (07:57)
== END 2025-06-09 12:28 | disposition home health service (06) | DRG 393 ==
PROVIDERS: Admitting Provider Family Medicine Geriatric Medicine; PCP Internal Medicine; Referring Provider Family Medicine Geriatric Medicine; Visit Provider Family Medicine Geriatric Medicine
DX: K52.1 Toxic gastroenteritis and colitis (principal); I26.92 Saddle embolus of pulmonary artery without acute cor pulmonale; C43.9 Malignant melanoma of skin, unspecified; I10 Essential (primary) hypertension; E87.6 Hypokalemia; F41.9 Anxiety disorder, unspecified; I25.10 Atherosclerotic heart disease of native coronary artery without angina pectoris; E53.8 Deficiency of other specified B group vitamins; K21.9 Gastro-esophageal reflux disease without esophagitis; K86.89 Other specified diseases of pancreas; G47.00 Insomnia, unspecified; Z79.899 Other long term (current) drug therapy; Z92.26 Personal history of immune checkpoint inhibitor therapy; T45.AX5 Adverse effect of immune checkpoint inhibitors and immunostimulant drugs
CPT/HCPCS: 36415; 80048; 83735; 84100; 85014; 85018; 85025; 87811; 97110; 97116; 97162; 97166; 97530; 97535; 97802